=== PATIENT | female | born 1955 | race Caucasian/White ===

== ENCOUNTER → 2016-11-18 | Outpatient (CLI) | payer OTHER ==
[~2016-11-18] MED LIST: ASPI81TA28 PO; B-COTAB18 PO; CHOL2000 PO; CRS20 PO; ESTR1DIS TD; HYZ/50125 PO; LORA-741 PO; LPR25 PO; MOME16.7 INH; NTRSLP4 SL; OMEG10007 PO; PLV75 PO; PRLSR20 PO; VNTHFA/IN INH
--- NOTE | 2016-11-18 15:37 | MAMMOGRAPHY REPORT ---
BILATERAL DIGITAL SCREENING MAMMOGRAM TOMOSYNTHESIS WITH CAD: 11/18/2016 CLINICAL HISTORY: Routine screening. Patient has no complaints. TECHNIQUE: Breast tomosynthesis in addition to standard 2D mammography was performed. Current study was also evaluated with a Computer Aided Detection (CAD) system. COMPARISON: Comparison is made to exams dated: 11/13/2015 mammogram, 11/07/2014 mammogram, 11/01/2013 mammogram, 10/26/2012 mammogram, 10/21/2011 mammogram, and 10/15/2010 mammogram - [facility]. BREAST COMPOSITION: There are scattered areas of fibroglandular density in both breasts. FINDINGS: No suspicious masses, calcifications, or areas of architectural distortion are noted in e ither breast. There has been no significant interval change compared to prior exams. IMPRESSION: ACR BI-RADS CATEGORY 1: NEGATIVE There is no mammographic evidence of malignancy. A 1 year screening mammogram is recommended. The p atient will receive written notification of the results. Approximately 10% of breast cancers are not detected with mammography. A negative mammographic repor t should not delay biopsy if a clinically suggestive mass is present. Isabela Way M.D. ah/:11/18/2016 15:03:07 Tax Collection Coordinator: Baylee HIDALGO(R)(M), [facility] letter sent: Normal 1/2 BI-RADS Code: ACR BI-RADS Category 1: Negative
== END | disposition home or self-care (01) ==
LOC: C.MAMM 12:27
PROVIDERS: ATTEND Obstetrics & Gynecology
DX: Z12.31 Encounter for screening mammogram for malignant neoplasm of breast (principal)

== ENCOUNTER 2017-03-19 16:51 | Inpatient (IN) | payer OTHER ==
[~2017-03-19] VITALS: Ht 167.6 cm; Wt 96.0 kg
[2017-03-19] MEDS ORDERED: NITROGLYCERIN OINT 2% 1GM PACKET EXT STA (17:05)
[2017-03-19] MEDS ORDERED: SODIUM CHLORIDE 0.9% 1000ML 250 ML IV STA (17:05)
--- NOTE | 2017-03-19 17:16 | EMERGENCY ROOM VISIT NOTE ---
History Report prepared by Abhishek: Rizwan Trinh Under the Supervision of: Dr. Jose Guadalupe Madrigal M.D. First contact with patient: 16:58 Stated Complaint: CHEST PAIN History of Present Illness The patient is a 61 year old female who presents to the Emergency Room with complaints of intermittent, burning, chest pain beginning a couple days ago. She currently states that her discomfort is almost resolved, but when it was present, it was a 5/10. The patient states that a couple days ago, she woke up in the night and experienced jaw pain, bilateral arm pain, and a burning in her chest. She reports that she thought it was GERD, so she propped herself up in bed, and it went away. The patient notes that an hour ago, she began experiencing the same symptoms. She states that her pain started in her jaw, radiated to her chest, and then into her arms. The patient reports that she was with friends, playing yahtzee, talking, and drinking a glass of wine. She notes that she was given Nitroglycerin and aspirin en route, and the medications helped alleviate her symptoms. She denies shortness of breath, nausea, and diaphoresis. The patient notes that she has a history of hypercholesteremia, but she no longer takes medication. She states that she has a history of hypertension and a strong family history of heart disease. The patient denies a history of diabetes mellitus. She notes that she occasionally smoke 4 cigarettes a day. Source of History: patient Onset: couple days ago Position: chest Symptom Intensity: 5/10 Quality: burning Timing: intermittent Modifying Factors (Relieving): other (nitroglycerin) Associated Symptoms: No diaphoresis, No SOB, No nausea Note: Associated symptoms: jaw pain and bilateral arm pain Review of Systems See HPI for pertinent positives & negatives. A total of 10 systems reviewed and were otherwise negative. Past Medical & Surgical Medical Problems: (1) HTN (hypertension) (2) Hypercholesteremia Family History FH: heart disease Hypertension Social History Smoking Status: Current Every Day Smoker (4cigs/day) Alcohol Use: occasionally Marital Status: Housing Status: lives with significant other Current/Historical Medications Scheduled Albuterol Hfa (Ventolin Hfa), 1 PUFF INH BID Aspirin (Aspirin Ec), 81 MG PO DAILY B-Complex Vitamins (Vitamin B Complex), 1 TAB PO DAILY Cholecalciferol (Vitamin D3), 1 CAP PO DAILY Estradiol (Estradiol), 1 PATCH TD 2XWK Fish Oil ([place]-3), 1 CAP PO DAILY Hctz/Losartan (Hyzaar 12.5MG/50MG), 1 TAB PO DAILY Mometasone Furoate (Inhalation (Asmanex Hfa), 1 PUFF INH BID Omeprazole (Prilosec), 20 MG PO DAILY Allergies Coded Allergies: Iodinated Diagnostic Agents (Verified Allergy, Severe, ANAPHYLAXIS, 03/19/17 ) [place] Nut (Verified Allergy, Intermediate, "ITCHY MOUTH", 03/19/17) [employer] (Verified Allergy, Intermediate, "ITCHY MOUTH", 03/19/17) Uncoded Allergies: SEVERAL FRUITS (Allergy, Intermediate, "ITCHY MOUTH"., 03/19/17) Physical Exam Vital Signs Date Time Temp Pulse Resp B/P (MAP) Pulse Ox O2 Delivery O2 Flow Rate FiO2 03/19/17 18:34 74 16 137/87 98 Room Air 03/19/17 18:27 78 167/107 03/19/17 17:34 79 18 167/107 96 Room Air 03/19/17 17:02 88 03/19/17 17:00 96 Room Air 03/19/17 17:00 96 Room Air 03/19/17 17:00 37.0 88 16 184/106 96 Room Air Physical Exam GENERAL: Patient is in no acute distress. HEENT: No acute trauma, normocephalic atraumatic, mucous membranes moist, no nasal congestion, no scleral icterus. NECK: No stridor, no adenopathy, no meningismus, trachea is midline. LUNGS: Clear to auscultation bilaterally, no wheeze, no rhonchi, breath sounds equal. HEART: Without murmurs gallops or rubs, regular rate and rhythm. ABDOMEN: Soft, nontender, bowel sounds positive, no hernias, no peritonitis. EXTREMITIES: No cyanosis or edema, full range of motion of all the joints without pain or difficulty, no signs for acute trauma. NEUROLOGIC: Oriented x 3, no acute motor or sensory deficits, no focal weakness. SKIN: No rash, no jaundice, no diaphoresis. Medical Decision & Procedures ER Provider Diagnostic Interpretation: Radiology results as stated below per my review and radiologist interpretation: CHEST ONE VIEW PORTABLE HISTORY: 61 years-old Female CHEST PAIN acute atypical chest pain. COMPARISON: None available TECHNIQUE: Portable upright AP view of the chest FINDINGS: Cardiac silhouette is within normal limits. No pneumothorax or pleural effusion. Well-demarcated opacity of the medial right lung base obscuring the right heart border is noted. Lung reynolds are otherwise clear. Degenerative changes involving bilateral shoulders. IMPRESSION: Well-defined opacity of the medial right lung base with obscuration of the right heart border is noted suggesting prominent epicardial fat pad or medial segment right middle lobe airspace disease. No comparison available at time of dictation. The above report was generated using voice recognition software. It may contain grammatical, syntax or spelling errors. Electronically signed by: Pedro Pablo Izquierdo M.D. 03/19/2017 5:26 PM Dictated Date/Time: 03/19/2017 5:22 PM (CHEST) THORAX WITHOUT CT DOSE: 396.48 mGy.cm CLINICAL HISTORY: 61 years-old Female with chest pain, allergic to dye--anyphalaxis. Acute atypical chest pain. Initial exam. TECHNIQUE: Multiaxial CT images of the chest were performed without contrast. A dose lowering technique was utilized adhering to the principles of ALARA. COMPARISON: Chest radiograph the same day. FINDINGS: No focal thyroid nodule identified. Evaluation for adenopathy is limited without contrast. No enlarged lymph nodes are seen by CT criteria. Heart is normal in size without pericardial effusion. Coronary arterial calcifications are noted. There is mild fusiform dilation of the ascending thoracic aorta beginning distal to the sinotubular junction, 4.3 x 4.2 cm. Mild biapical pleural-parenchymal scarring is present without pneumothorax, pleural effusion or focal airspace consolidation. There is mild subsegmental bibasilar atelectasis. Mild mucosal secretions are seen layering within the mid thoracic trachea. No significant mucous plugging of the lung bases. Imaged upper abdominal structures demonstrate no acute abnormality. There are a few scattered nonspecific calcifications of the bilateral breasts. Multilevel endplate spurring is seen throughout the spine. IMPRESSION: 1. No acute cardiopulmonary process. 2. Mild fusiform dilation of the ascending thoracic aorta begins distal to the sinotubular junction, 4.3 x 4.2 cm. 3. Coronary arterial disease. Electronically signed by: Pedro Pablo Izquierdo M.D. 03/19/2017 6:42 PM Dictated Date/Time: 03/19/2017 6:36 PM Laboratory Results 03/19/17 16:37 03/19/17 16:37 Test 03/19/17 16:37 03/19/17 17:01 Red Blood Count 4.27 M/uL (4.2-5.4) Mean Corpuscular Volume 91.6 fL (80-100) Mean Corpuscular Hemoglobin 31.1 pg (25-34) Mean Corpuscular Hemoglobin Concent 34.0 g/dl (32-36) RDW Standard Deviation 41.8 fL (36.4-46.3) RDW Coefficient of Variation 12.5 % (11.5-14.5) Mean Platelet Volume 10.4 fL (7.4-10.4) Prothrombin Time 9.9 SECONDS (9.0-12.0) Prothromb Time International Ratio 0.9 (0.9-1.1) Activated Partial Thromboplast Time 28.1 SECONDS (21.0-31.0) Partial Thromboplastin Ratio 1.1 Anion Gap 6.0 mmol/L (3-11) Est Creatinine Clear Calc Drug Dose 72.7 ml/min Estimated GFR () 84.5 Estimated GFR (Non- 72.9 BUN/Creatinine Ratio 12.1 (10-20) Calcium Level 8.8 mg/dl (8.5-10.1) Total Bilirubin 0.6 mg/dl (0.2-1) Aspartate Amino Transf (AST/SGOT) 13 U/L (15-37) Alanine Aminotransferase (ALT/SGPT) 26 U/L (12-78) Alkaline Phosphatase 77 U/L (45-117) Total Creatine Kinase 92 U/L (26-192) Creatine Kinase MB 3.5 ng/ml (0.5-3.6) Creatine Kinase MB Ratio 3.8 (0-3.0) Troponin I < 0.015 ng/ml (0-0.045) Total Protein 7.0 gm/dl (6.4-8.2) Albumin 4.0 gm/dl (3.4-5.0) Globulin 3.0 gm/dl (2.5-4.0) Albumin/Globulin Ratio 1.3 (0.9-2) Lipase 465 U/L (73-393) Bedside Troponin I < 0.030 ng/ml (0-0.045) Laboratory results reviewed by me. Medications Administered Medications (Trade) Dose Ordered Sig/Sean Route Start Time Stop Time Status Last Admin Dose Admin Sodium Chloride 250 ml @ 999 mls/hr Q16M STAT IV 03/19/17 17:05 03/19/17 17:20 DC 03/19/17 17:24 999 MLS/HR Nitroglycerin (Nitroglycerin 2% Oint) 1 inch NOW STAT EXT 03/19/17 17:05 03/19/17 17:06 DC 03/19/17 17:05 1 INCH Metoprolol Tartrate (Lopressor Iv) 5 mg NOW STAT IV 03/19/17 18:11 03/19/17 18:13 DC 03/19/17 18:27 5 MG ECG Indication: chest pain Rate (beats per minute): 77 Rhythm: normal sinus Findings: no ectopy, other (Very subtle ST changes in the inferior leads) Comparison ECG Date: 03/19/17 Change: EKG from ambulance: Normal sinus with a rate of 95, mild ST elevation in the I and L leads with ST depression in the in inferior leads The patient has shown improvement since she has been given the nitroglycerin and aspirin. Repeat EKG from same visit: Indication: jaw pain. Normal sinus with a rate of 72. No ectopy. No acute ischemic change. ED Course 1658: The patient was evaluated in room B06. A complete history and physical exam was performed. 1705: Ordered Nitroglycerin 1 inch EXT, Sodium Chloride 250 ml @ 999 mls/hr IV 1746: I discussed the patient's case with Dr. Murphy, [facility] Hospitalist. The patient will be evaluated for further treatment. 1754: Upon reexamination the patient is still experiencing minimal jaw pain. It is significantly less severe as before. She denies the chest burning and bilateral arm pain. I discussed results and treatment plan with the patient. She verbalizes agreement and understanding. The patient will be evaluated for further management. Medical Decision The patient is a 61 year old female who presents to the ED with complaints of chest burning. Differential diagnoses considered include angina or [place], GERD, gastritis, pancreatitis, musculoskeletal pain, aortic dissection, PE. There is no leukocytosis or concerning anemia. No significant electrolyte abnormality, kidney failure or hepatitis. Lipase mildly elevated but not high enough to diagnose pancreatitis. Chest film shows some potential atelectasis of the right base. Chest CT without contrast as she has anaphylaxis with contrast, shows some dilation to the thoracic aorta, no mention of aortic dissection, no pneumonia seen, no pneumothorax. The EKG done by the paramedics when the patient was having discomfort shows some mild ST elevations in the lateral leads and some ST depressions inferiorly. Her EKG upon arrival, when she was feeling better, shows significant improvement. A third EKG done once she had received Nitropaste and IV Lopressor shows that the changes have completely normalized. Cardiac enzyme testing 1 is not elevated or consistent with acute cardiac injury. The patient received IV saline, Nitropaste. She had already received aspirin orally before arrival. She was given IV Lopressor to help control the blood pressure and heart rate. She feels markedly improved. I do think a hospital stay for further cardiac workup is warranted. She does have several cardiac risk factors and I am somewhat concerned by the changes in her EKG when she had discomfort. I spoke to case management, I did update the patient. The on-call hospitalist was consulted. Consults Time Called: 1739 Consulting Physician: Dr. Murphy [facility] Hospitalist Returned Call: [phone] I discussed the patient's case with Dr. Murphy [facility] Hospitalist. The patient will be evaluated for further treatment. Impression Primary Impression: Precordial chest pain Additional Impression: EKG abnormalities Scribe Attestation The scribe's documentation has been prepared under my direction and personally reviewed by me in its entirety. I confirm that the note above accurately reflects all work, treatment, procedures, and medical decision making performed by me. Departure Information Dispostion Being Evaluated By Hospitalist Referrals Nasir Araiza M.D. (PCP) Problem Qualifiers
[2017-03-19 17:17] LABS: HEMATOCRIT 39.1 % (37-47); MEAN CELL VOLUME 91.6 fL (80-100); MEAN CORPUSCULAR HEMOGLOBIN 31.1 pg (25-34); MEAN PLATELET VOLUME 10.4 fL (7.4-10.4); PLATELET COUNT 296 K/uL (130-400); RED BLOOD COUNT 4.27 M/uL (4.2-5.4); WHITE BLOOD COUNT 10.04 K/uL (4.8-10.8)
--- NOTE | 2017-03-19 17:27 | DIAGNOSTIC IMAGING REPORT ---
CHEST ONE VIEW PORTABLE HISTORY: 61 years-old Female CHEST PAIN acute atypical chest pain. COMPARISON: None available TECHNIQUE: Portable upright AP view of the chest FINDINGS: Cardiac silhouette is within normal limits. No pneumothorax or pleural effusion. Well-demarcated opacity of the medial right lung base obscuring the right heart border is noted. Lung reynolds are otherwise clear. Degenerative changes involving bilateral shoulders. IMPRESSION: Well-defined opacity of the medial right lung base with obscuration of the right heart border is noted suggesting prominent epicardial fat pad or medial segment right middle lobe airspace disease. No comparison available at time of dictation. The above report was generated using voice recognition software. It may contain grammatical, syntax or spelling errors. Electronically signed by: Pedro Pablo Izquierdo M.D. 03/19/2017 5:26 PM Dictated Date/Time: 03/19/2017 5:22 PM
[2017-03-19 17:29] LABS: ALT/SGPT 26 U/L (12-78); AST/SGOT 13 U/L (15-37); BLOOD UREA NITROGEN 10 mg/dl (7-18); BUN/CREATININE RATIO 12.1 (10-20); CALCIUM 8.8 mg/dl (8.5-10.1); CARBON DIOXIDE 28 mmol/L (21-32); CHLORIDE 102 mmol/L (98-107); CREATININE 0.86 mg/dl (0.60-1.20); GLUCOSE 144 mg/dl (70-99); INR 0.9 (0.9-1.1); PARTIAL THROMBOPLASTIN RATIO 1.1; POTASSIUM 3.2 mmol/L (3.5-5.1); PROTHROMBIN TIME (PATIENT) 9.9 SECONDS (9.0-12.0); SODIUM 136 mmol/L (136-145)
[2017-03-19 17:35] LABS: ALB/GLOB RATIO 1.3 (0.9-2); ALKALINE PHOSPHATASE 77 U/L (45-117); CKMB/CK RATIO 3.8 (0-3.0)
[2017-03-19] MEDS ORDERED: B-COTAB18 PO (17:42)
[2017-03-19] MEDS ORDERED: ASPI81TA28 PO (17:42)
[2017-03-19] MEDS ORDERED: CHOL2000 PO (17:42)
[2017-03-19] MEDS ORDERED: VNTHFA/IN INH (17:42)
[2017-03-19] MEDS ORDERED: PRLSR20 PO (17:42)
[2017-03-19] MEDS ORDERED: OMEG10007 PO (17:42)
[2017-03-19] MEDS ORDERED: ESTR1DIS TD (17:42)
[2017-03-19] MEDS ORDERED: MOME16.7 INH (17:42)
[2017-03-19] MEDS ORDERED: HYZ/50125 PO (17:42)
[2017-03-19] MEDS ORDERED: METOPROLOL TARTRATE 1 MG/ML VIAL IV STA (18:11)
[2017-03-19] MEDS ORDERED: ACETAMINOPHEN 500 MG TAB PO STA (18:37)
--- NOTE | 2017-03-19 18:43 | DIAGNOSTIC IMAGING REPORT ---
(CHEST) THORAX WITHOUT CT DOSE: 396.48 mGy.cm CLINICAL HISTORY: 61 years-old Female with chest pain, allergic to dye--anyphalaxis. Acute atypical chest pain. Initial exam. TECHNIQUE: Multiaxial CT images of the chest were performed without contrast. A dose lowering technique was utilized adhering to the principles of ALARA. COMPARISON: Chest radiograph the same day. FINDINGS: No focal thyroid nodule identified. Evaluation for adenopathy is limited without contrast. No enlarged lymph nodes are seen by CT criteria. Heart is normal in size without pericardial effusion. Coronary arterial calcifications are noted. There is mild fusiform dilation of the ascending thoracic aorta beginning distal to the sinotubular junction, 4.3 x 4.2 cm. Mild biapical pleural-parenchymal scarring is present without pneumothorax, pleural effusion or focal airspace consolidation. There is mild subsegmental bibasilar atelectasis. Mild mucosal secretions are seen layering within the mid thoracic trachea. No significant mucous plugging of the lung bases. Imaged upper abdominal structures demonstrate no acute abnormality. There are a few scattered nonspecific calcifications of the bilateral breasts. Multilevel endplate spurring is seen throughout the spine. IMPRESSION: 1. No acute cardiopulmonary process. 2. Mild fusiform dilation of the ascending thoracic aorta begins distal to the sinotubular junction, 4.3 x 4.2 cm. 3. Coronary arterial disease. Electronically signed by: Pedro Pablo Izquierdo M.D. 03/19/2017 6:42 PM Dictated Date/Time: 03/19/2017 6:36 PM
[2017-03-19] MEDS ORDERED: ZOLPIDEM TARTRATE 5 MG TAB PO PRN (19:00)
[2017-03-19] MEDS ORDERED: NITROGLYCERIN 0.4 MG SL PER TAB CHARGE SL PRN (19:00)
[2017-03-19] MEDS: NITROGLYCERIN 2% OINTMENT 30GM TUBE EXT SCH (19:00)
[2017-03-19] MEDS ORDERED: ACETAMINOPHEN 325 MG TAB PO PRN (19:00)
[2017-03-19] MEDS ORDERED: ONDANSETRON INJ 2 MG/ML 2 ML VIAL IV PRN (19:15)
--- NOTE | 2017-03-19 19:29 | History and Physical ---
History & Physical Date & Time of Service: Mar 19, 2017 at 19:26 Chief Complaint: Chest Pain Primary Care Physician: Nasir Araiza M.D. History of Present Illness Source: patient, spouse, hospital records, EMS The patient is a 61-year-old female who presents to the emergency department with her second episode in the past 2 days of intermittent chest burning sensation with radiation of pain to her jaw and arm. Today she reports she was playing cards and drinking a glass of wine when the symptoms occurred. Because this was her second episode, she decided to come to the emergency department for assessment. She has a very strong family history of heart disease on both sides, and risk factors include hypercholesterolemia, hypertension, obesity and tobacco use. She initially had abnormal EKG with ST elevations in leads 1 and aVL, as performed by the medics in the field, which normalized by the time she arrived in the emergency department. Past Medical/Surgical History Medical Problems: (1) HTN (hypertension) Status: Chronic (2) Hypercholesteremia Status: Resolved Family History FH: heart disease Hypertension Social History Smoking Status: Current Every Day Smoker (4cigs/day) Smokeless Tobacco Use: No Alcohol Use: socially Drug Use: none Marital Status: Housing status: lives with family Occupational Status: employed Immunizations History of Influenza Vaccine: Unknown History of Tetanus Vaccine?: Unknown History of Pneumococcal: Unknown History of Hepatitis B Vaccine: Unknown Multi-Drug Resistant Organisms History of MDRO: No Allergies Coded Allergies: Iodinated Diagnostic Agents (Verified Allergy, Severe, ANAPHYLAXIS, 03/19/17 ) [place] (Verified Allergy, Intermediate, "ITCHY MOUTH", 03/19/17) [place] (Verified Allergy, Intermediate, "ITCHY MOUTH", 03/19/17) Uncoded Allergies: SEVERAL FRUITS (Allergy, Intermediate, "ITCHY MOUTH"., 03/19/17) Home Medications Scheduled Albuterol Hfa (Ventolin Hfa), 1 PUFF INH BID Aspirin (Aspirin Ec), 81 MG PO DAILY B-Complex Vitamins (Vitamin B Complex), 1 TAB PO DAILY Cholecalciferol (Vitamin D3), 1 CAP PO DAILY Estradiol (Estradiol), 1 PATCH TD 2XWK Fish Oil (Rock-3), 1 CAP PO DAILY Hctz/Losartan (Hyzaar 12.5MG/50MG), 1 TAB PO DAILY Mometasone Furoate (Inhalation (Asmanex Hfa), 1 PUFF INH BID Omeprazole (Prilosec), 20 MG PO DAILY Review of Systems The patient denies palpitations, shortness of breath, cough, lower extremity swelling, vision change, hearing change, sore throat, fevers, chills, sweats, weight change, fatigue, nausea, vomiting, diarrhea or constipation, abdominal pain, pelvic pain, blood in urine or stool, dysuria, urinary frequency or urgency, lightheadedness, dizziness, headache, memory loss, rash, abnormal bruising or bleeding, imbalance, focal or generalized weakness, numbness or tingling in legs, generalized arthralgias or myalgias, back pain, night sweats, or allergy symptoms. The review of systems is otherwise negative other than for that already noted above, and at least 10 systems have been reviewed. Physical Exam Vital Signs Date Time Temp Pulse Resp B/P (MAP) Pulse Ox O2 Delivery O2 Flow Rate FiO2 03/19/17 18:34 74 16 137/87 98 Room Air 03/19/17 18:27 78 167/107 03/19/17 17:34 79 18 167/107 96 Room Air 03/19/17 17:02 88 03/19/17 17:00 96 Room Air 03/19/17 17:00 96 Room Air 03/19/17 17:00 37.0 88 16 184/106 96 Room Air The patient is awake, well-developed and adequately nourished, alert and oriented 3, normocephalic and atraumatic, lying in bed and in no acute distress. HEENT--PERRL, EOMI, mucous membranes and oropharynx normal. Neck--supple, no JVD or bruits, thyroid normal, trachea midline, no adenopathy. Heart--normal S1 and S2, no extra beats, no murmurs, rubs or gallops. Lungs--clear bilaterally with good air movement, no respiratory distress, no accessory muscle use. Abdomen--normal bowel sounds and soft, nontender and nondistended, no hernias or masses, no organomegaly and obese. Extremities--no cyanosis, clubbing or edema. There are good distal pulses b/l. Dermatologic--normal skin turgor, normal color, warm and dry, no abnormal lymph nodes, no rash. Neurologic--cranial nerves II through XII grossly intact, motor and sensory examination normal. Rheumatologic--normal range of motion, nontender, muscles and joints. Psychiatric--normal affect. Diagnostics Laboratory Results Results Past 24 Hours Test 03/19/17 16:37 03/19/17 17:01 03/19/17 19:11 Range/Units White Blood Count 10.04 4.8-10.8 K/uL Red Blood Count 4.27 4.2-5.4 M/uL Hemoglobin 13.3 12.0-16.0 g/dL Hematocrit 39.1 37-47 % Mean Corpuscular Volume 91.6 80-100 fL Mean Corpuscular Hemoglobin 31.1 25-34 pg Mean Corpuscular Hemoglobin Concent 34.0 32-36 g/dl RDW Standard Deviation 41.8 36.4-46.3 fL RDW Coefficient of Variation 12.5 11.5-14.5 % Platelet Count 296 130-400 K/uL Mean Platelet Volume 10.4 7.4-10.4 fL Prothrombin Time 9.9 9.0-12.0 SECONDS Prothromb Time International Ratio 0.9 0.9-1.1 Activated Partial Thromboplast Time 28.1 21.0-31.0 SECONDS Partial Thromboplastin Ratio 1.1 Sodium Level 136 136-145 mmol/L Potassium Level 3.2 3.5-5.1 mmol/L Chloride Level 102 98-107 mmol/L Carbon Dioxide Level 28 21-32 mmol/L Anion Gap 6.0 3-11 mmol/L Blood Urea Nitrogen 10 7-18 mg/dl Creatinine 0.86 0.60-1.20 mg/dl Est Creatinine Clear Calc Drug Dose 72.7 ml/min Estimated GFR () 84.5 Estimated GFR (Non- 72.9 BUN/Creatinine Ratio 12.1 10-20 Random Glucose 144 70-99 mg/dl Calcium Level 8.8 8.5-10.1 mg/dl Total Bilirubin 0.6 0.2-1 mg/dl Aspartate Amino Transf (AST/SGOT) 13 15-37 U/L Alanine Aminotransferase (ALT/SGPT) 26 12-78 U/L Alkaline Phosphatase 77 45-117 U/L Total Creatine Kinase 92 26-192 U/L Creatine Kinase MB 3.5 0.5-3.6 ng/ml Creatine Kinase MB Ratio 3.8 0-3.0 Troponin I < 0.015 0-0.045 ng/ml Total Protein 7.0 6.4-8.2 gm/dl Albumin 4.0 3.4-5.0 gm/dl Globulin 3.0 2.5-4.0 gm/dl Albumin/Globulin Ratio 1.3 0.9-2 Lipase 465 73-393 U/L Bedside Troponin I < 0.030 0-0.045 ng/ml Diagnostic Radiology Patient Name: ELIDA RAND Unit Number: [id number] Dictated: 03/19/171721 Transcribed: 03/19/171721 J[facility] Printed Date/Time: [~ rep prt dt]/[~ rep prt tm] [~ rep ct labl] - [~ rep ct ivnm] [facility] [place] [address] Dictated: 03/19/171721 Transcribed: 03/19/171721 J[facility] Printed Date/Time: [~ rep prt dt]/[~ rep prt tm] [~ rep ct labl] - [~ rep ct ivnm] [~ rep ct add3]] CHEST ONE VIEW PORTABLE HISTORY: 61 years-old Female CHEST PAIN acute atypical chest pain. COMPARISON: None available TECHNIQUE: Portable upright AP view of the chest FINDINGS: Cardiac silhouette is within normal limits. No pneumothorax or pleural effusion. Well-demarcated opacity of the medial right lung base obscuring the right heart border is noted. Lung reynolds are otherwise clear. Degenerative changes involving bilateral shoulders. IMPRESSION: Well-defined opacity of the medial right lung base with obscuration of the right heart border is noted suggesting prominent epicardial fat pad or medial segment right middle lobe airspace disease. No comparison available at time of dictation. The above report was generated using voice recognition software. It may contain grammatical, syntax or spelling errors. Electronically signed by: Pedro Pablo Izquierdo M.D. 03/19/2017 5:26 PM Dictated Date/Time: 03/19/2017 5:22 PM The status of this report is Signed. Draft = Not yet reviewed or approved by Radiologist. Signed = Reviewed and approved by Radiologist. <AttendingPhy></AttendingPhy> <FamilyPhy>Solic, Nasir,M.D.</FamilyPhy> < PrimaryPhy>Nasir Araiza M.D.</PrimaryPhy> <UnitNumber>[id number]</UnitNumber> < VisitNumber>[id number]</VisitNumber> <PatientName>DALIA RANDIE</PatientName > <DateOfBirth>1955</DateOfBirth> <Location>[facility]</Location> <ServiceDate> 03/19/17</ServiceDate> <MNE>ESINDI</MNE> <OrderingPhy>Jose Guadalupe Madrigal M.D.</ OrderingPhy> <OrderingPhyMNE>f rep ord dr navarrete</OrderingPhyMNE> <DictatingPhyMNE> f rep dict dr navarrete</DictatingPhyMNE> <CCListMNE>f rep ct mne</CCListMNE> < AdmittingPhyMNE>f pt admit dr navarrete</AdmittingPhyMNE> <AttendingPhyMNE>f pt attend dr navarrete</AttendingPhyMNE> <ConsultingPhyMNE>f pt consult dr navarrete</ConsultingPhyMNE> <FamilyPhyMNE>f pt fam dr navarrete</FamilyPhyMNE> <OtherPhyMNE>f pt other dr navarrete</OtherPhyMNE> < PrimaryPhyMNE>f pt prim care dr navarrete</PrimaryPhyMNE> <ReferringPhyMNE>f pt referring dr navarrete</ReferringPhyMNE> Patient Name: ELIDA RAND Unit Number: [id number] Dictated: 03/19/171835 Transcribed: 03/19/171835 [facility] Printed Date/Time: [~ rep prt dt]/[~ rep prt tm] [~ rep ct labl] - [~ rep ct ivnm] [facility] [place] [address] Dictated: 03/19/171835 Transcribed: 03/19/171835 JR Printed Date/Time: [~ rep prt dt]/[~ rep prt tm] [~ rep ct labl] - [~ rep ct ivnm] (CHEST) THORAX WITHOUT CT DOSE: 396.48 mGy.cm CLINICAL HISTORY: 61 years-old Female with chest pain, allergic to dye--anyphalaxis. Acute atypical chest pain. Initial exam. TECHNIQUE: Multiaxial CT images of the chest were performed without contrast. A dose lowering technique was utilized adhering to the principles of ALARA. COMPARISON: Chest radiograph the same day. FINDINGS: No focal thyroid nodule identified. Evaluation for adenopathy is limited without contrast. No enlarged lymph nodes are seen by CT criteria. Heart is normal in size without pericardial effusion. Coronary arterial calcifications are noted. There is mild fusiform dilation of the ascending thoracic aorta beginning distal to the sinotubular junction, 4.3 x 4.2 cm. Mild biapical pleural-parenchymal scarring is present without pneumothorax, pleural effusion or focal airspace consolidation. There is mild subsegmental bibasilar atelectasis. Mild mucosal secretions are seen layering within the mid thoracic trachea. No significant mucous plugging of the lung bases. Imaged upper abdominal structures demonstrate no acute abnormality. There are a few scattered nonspecific calcifications of the bilateral breasts. Multilevel endplate spurring is seen throughout the spine. IMPRESSION: 1. No acute cardiopulmonary process. 2. Mild fusiform dilation of the ascending thoracic aorta begins distal to the sinotubular junction, 4.3 x 4.2 cm. 3. Coronary arterial disease. Electronically signed by: Pedro Pablo Izquierdo M.D. 03/19/2017 6:42 PM Dictated Date/Time: 03/19/2017 6:36 PM The status of this report is Signed. Draft = Not yet reviewed or approved by Radiologist. Signed = Reviewed and approved by Radiologist. <AttendingPhy></AttendingPhy> <FamilyPhy>Nasir Araiza M.D.</FamilyPhy> < PrimaryPhy>Nasir Araiza M.D.</PrimaryPhy> <UnitNumber>[id number]</UnitNumber> < VisitNumber>[id number]</VisitNumber> <PatientName>ELIDA RAND</PatientName > <DateOfBirth>1955</DateOfBirth> <Location[facility]</Location> <ServiceDate> 03/19/17</ServiceDate> <MNE>ESINDI</MNE> <OrderingPhy>Feese, Jose Guadalupe J. M.D.</ OrderingPhy> <OrderingPhyMNE>f rep ord dr navarrete</OrderingPhyMNE> <DictatingPhyMNE> f rep dict dr navarrete</DictatingPhyMNE> <CCListMNE>f rep ct arbene</CCListMNE> < AdmittingPhyMNE>f pt admit dr navarrete</AdmittingPhyMNE> <AttendingPhyMNE>f pt attend dr navarrete</AttendingPhyMNE> <ConsultingPhyMNE>f pt consult dr navarrete</ConsultingPhyMNE> <FamilyPhyMNE>f pt fam dr navarrete</FamilyPhyMNE> <OtherPhyMNE>f pt other dr navarrete</OtherPhyMNE> < PrimaryPhyMNE>f pt prim care dr navarrete</PrimaryPhyMNE> <ReferringPhyMNE>f pt referring dr navarrete</ReferringPhyMNE> EKG EKG #1, in the field, shows normal sinus rhythm with ST elevations in leads 1 and aVL and V2. EKG #2, performed in the ED, shows resolution of the elevations. EKG #3, is unchanged from #2. Impression Assessment and Plan Unstable angina/abnormal EKG in the field, resolved in the ED-- The patient will be admitted to telemetry for serial cardiac enzymes, cardiac rhythm monitoring and a 2-D echocardiogram with Dopplers. Stop Hyzaar. Place on metoprolol tartrate 25 mg by mouth twice a day. Aspirin 81 mg by mouth every morning. Nitropaste 1 inch anterior chest wall every 6 hours. Start heparin drip standard dose with bolus per weight-based protocol. Consult cardiology. Hypercholesterolemia--place on high-dose Lipitor 80 mg starting tonight. Asthma--continue Asmanex HFA and albuterol HFA. GERD--change omeprazole to pantoprazole which she takes at bedtime. Postmenopausal symptoms continue estradiol patch. Level of Care Telemetry Advanced Directives Existing Advance Directive: No Existing Living Will: No Existing Power of Group Marketing Vp: No Resuscitation Status FULL RESUSCITATION VTE Prophylaxis VTE Risk Assessment Done? Y/N: Yes Risk Level: Moderate Given or contraindicated: Unfractionated heparin SQ (IV heparin standard dose with bolus per weight-based protocol. ) Social Service Consult None Apply
[2017-03-19 20:06] VITALS: BP 122/73; PULSE 74; TEMP 36.8; O2SAT 96
[2017-03-19] MEDS ORDERED: HEPARIN 25,000 UNIT/500ML D5W 500 ML IV PRN (20:15)
[2017-03-19] MEDS ORDERED: HEPARIN IV BOLUS 5,000 UNIT in SYRINGE 0 ML IV ONE (20:15)
[2017-03-19] MEDS: ALBUTEROL HFA 8 GM INHALER INH SCH (20:29)
[2017-03-19] MEDS: METOPROLOL TARTRATE 25 MG TAB PO SCH (20:29)
[2017-03-19] MEDS: ATORVASTATIN 40 MG TAB PO SCH ×2 (20:29→20:41)
[2017-03-19] MEDS: PANTOprazole SOD 40 MG TAB PO SCH (20:29)
[2017-03-19 20:52] VITALS: BP 122/73; PULSE 74; TEMP 36.8; O2SAT 96; Ht 167.6 cm; Wt 96.0 kg
[2017-03-19] MEDS ORDERED: ALBUTEROL HFA INHALER 8.5 GM INH SCH (21:00)
[2017-03-19 21:49] LABS: CKMB/CK RATIO 6.3 (0-3.0)
[2017-03-20] VITALS (17 sets, daily range): BP systolic 103–164; BP diastolic 64–97; PULSE 66–83; TEMP 36.4–36.9; O2SAT 92–96
[2017-03-20] MEDS: NITROGLYCERIN 2% OINTMENT 30GM TUBE EXT SCH ×3 (01:19→14:30)
[2017-03-20 03:06] LABS: BASO % 0.2 %; BASO ABS # 0.02 K/uL (0-0.2); COMPLETE YES; EOS % 2.6 %; HEMATOCRIT 35.8 % (37-47); IG% 0.2 %; LYMPH % 33.5 %; LYMPH ABS # 2.83 K/uL (1.2-3.4); MEAN CELL VOLUME 90.6 fL (80-100); MEAN CORPUSCULAR HEMOGLOBIN 30.6 pg (25-34); MEAN CORPUSCULAR HGB CONC 33.8 g/dl (32-36); MEAN PLATELET VOLUME 10.1 fL (7.4-10.4); MONO % 4.7 %; NEUT % 58.8 %; PLATELET COUNT 239 K/uL (130-400); RED BLOOD COUNT 3.95 M/uL (4.2-5.4); WHITE BLOOD COUNT 8.45 K/uL (4.8-10.8)
[2017-03-20 03:41] LABS: CKMB/CK RATIO 9.8 (0-3.0)
[2017-03-20] MEDS: ASPIRIN 81 MG ECTAB PO SCH (08:46)
[2017-03-20] MEDS: METOPROLOL TARTRATE 25 MG TAB PO SCH ×2 (08:47→21:42)
[2017-03-20] MEDS: VITAMIN B COMPLEX TAB PO SCH (08:52)
[2017-03-20] MEDS: ALBUTEROL HFA 8 GM INHALER INH SCH ×2 (08:53→21:43)
[2017-03-20] MEDS: CHOLECALCIFEROL 1000 INTER.UNIT TAB PO SCH (08:53)
[2017-03-20] MEDS ORDERED: LOSARTAN/HCTZ 50-12.5 EA TAB PO SCH (09:00)
[2017-03-20] MEDS ORDERED: METHYLPREDNISOLONE 125 MG VIAL IV STA (10:17)
[2017-03-20] MEDS ORDERED: RANITIDINE HCL 50 MG/100 ML D5W IV STA (10:17)
[2017-03-20] MEDS ORDERED: DiphenhydrAMINE INJ 50 MG in SYRINGE 0 ML IV STA (10:17)
[2017-03-20] MEDS ORDERED: DiphenhydrAMINE HCL 50 MG/ML VIAL IV STA (10:23)
[2017-03-20] MEDS ORDERED: METHYLPREDNISOLONE 125 MG in SYRINGE 0 ML IV ONE (10:30)
[2017-03-20] MEDS ORDERED: RANITIDINE IV 50 MG in DEXTROSE 5% 100ML 100 ML IV ONE (10:30)
[2017-03-20 10:36] LABS: CKMB/CK RATIO 10.5 (0-3.0)
--- NOTE | 2017-03-20 10:56 | ECHOCARDIOGRAM REPORT ---
*NOTICE TO RECEIVING DEMOCRAT AGENCY This information is strictly Confidential and protected under [place] law. [place] law prohibits you from making any further disclosure of this information unless further disclosure is expressly permitted by the written consent of the person to whom it pertains or is authorized by law. A general authorization for the release of medical or other information is not sufficient for this purpose. Hospital accepts no responsibility if the information is made available to any other person, INCLUDING THE PATIENT. Interpretation Summary * Name: ELIDA RAND Study Date: 03/20/2017 07:01 AM BP: 103/67 mmHg * Patient Location: .MED\S\N282\S\2 HR: 69 * : 1955 (M/d/yyyy) Gender: Female Height: 66 in * Age: 61 yrs Ethnicity: [place] Weight: 173 lb * Ordering Physician: Jaime Murphy * Performed By: Anna Mccormack * * Reason For Study: UNSTABLE ANGINA * BSA: 1.9 m2 * -- Conclusions -- * 1. Normal LV size, borderline LV wall thickness. * 2. Normal LV systolic function. LVEF 60-65%. Mild inferolateral hypokinesis. * 3. Normal RV size and function. * 4. No significant valvular pathology. * 5. Mildly dilated ascending aorta (4.0 cm) * 6. No prior studies for comparison. Procedure Details * A complete two-dimensional transthoracic echocardiogram was performed (2D, M-mode, Doppler and color flow Doppler). Left Ventricle * The left ventricle is grossly normal size. * There is borderline concentric left ventricular hypertrophy. * Ejection Fraction = 60-65%. * There is mild inferior wall hypokinesis. Right Ventricle * The right ventricle is grossly normal size. * The right ventricular systolic function is normal as assessed by tricuspid annular plane systolic excursion (TAPSE) (normal >1.5 cm). Atria * The left atrial size is normal. * Right atrial size is normal. * No ASD detected; PFO is not assessed. Mitral Valve * The mitral valve is grossly normal. * There is no mitral valve stenosis. * There is trace mitral regurgitation. Tricuspid Valve * Significant tricuspid regurgitation is absent. Aortic Valve * The aortic valve opens well. * The aortic valve is trileaflet. * No hemodynamically significant valvular aortic stenosis. * Trace aortic regurgitation. Pulmonic Valve * The pulmonary valve is inadequately visualized, but the Doppler data is adequate for interpretation. * There is no pulmonic valvular stenosis. * Trace pulmonic valvular regurgitation. Great Vessels * Mildly dilated ascending aorta. * Ascending aorta 4.0 cm Pericardium/Pleural * There is no pericardial effusion. Great Vessels * Normal inferior vena cava size and collapsability with sniff indicates a normal right atrial pressure of 3 mmHg MMode 2D Measurements and Calculations IVSd 1.3 cm IVSs 1.9 cm LVIDd 4.7 cm LVIDs 3.2 cm LVPWd 0.98 cm LVPWs 2.0 cm IVS/LVPW 1.3 FS 32.9 % EDV(Teich) 102.9 ml ESV(Teich) 39.7 ml EF(Teich) 61.4 % EDV(cubed) 104.5 ml ESV(cubed) 31.6 ml EF(cubed) 69.8 % % IVS thick 51.2 % % LVPW thick 99.6 % LV mass(C)d 194.7 grams LV mass(C)dI 103.5 grams/m\S\2 LV mass(C)s 265.1 grams LV mass(C)sI 141.0 grams/m\S\2 CO(Teich) 3.9 l/min CI(Teich) 2.0 l/min/m\S\2 SV(Teich) 63.1 ml SI(Teich) 33.6 ml/m\S\2 CO(cubed) 4.4 l/min CI(cubed) 2.4 l/min/m\S\2 SV(cubed) 72.9 ml SI(cubed) 38.8 ml/m\S\2 ACS 1.4 cm LA dimension 3.4 cm asc Aorta Diam 4.1 cm LVOT diam 2.2 cm LVOT area 4.0 cm\S\2 LVAd ap4 30.8 cm\S\2 LVLd ap4 7.8 cm EDV(MOD-sp4) 100.0 ml LVAs ap4 14.9 cm\S\2 LVLs ap4 6.2 cm ESV(MOD-sp4) 32.4 ml EF(MOD-sp4) 67.6 % LVAd ap2 24.2 cm\S\2 LVLd ap2 7.3 cm EDV(MOD-sp2) 68.0 ml LVAs ap2 14.0 cm\S\2 LVLs ap2 6.7 cm ESV(MOD-sp2) 25.2 ml EF(MOD-sp2) 62.9 % CO(MOD-sp4) 4.1 l/min CI(MOD-sp4) 2.2 l/min/m\S\2 SV(MOD-sp4) 67.6 ml SI(MOD-sp4) 35.9 ml/m\S\2 CO(MOD-sp2) 2.6 l/min CI(MOD-sp2) 1.4 l/min/m\S\2 SV(MOD-sp2) 42.8 ml SI(MOD-sp2) 22.8 ml/m\S\2 Doppler Measurements and Calculations MV E max severino 76.2 cm/sec MV A max severino 104.8 cm/sec MV E/A 0.73 MV dec time 0.24 sec Ao V2 max 130.3 cm/sec Ao max PG 6.8 mmHg Ao max PG (full) 3.6 mmHg DEANDRE(V,A) 2.7 cm\S\2 DEANDRE(V,D) 2.7 cm\S\2 LV V1 max PG 3.2 mmHg LV V1 max 89.7 cm/sec MR max severino 279.6 cm/sec MR max PG 31.3 mmHg PA V2 max 59.7 cm/sec PA max PG 1.4 mmHg PI end-d severino 100.4 cm/sec
[2017-03-20] MEDS ORDERED: NiCARDipine HCL INJ 2.5 MG/ML 10 ML AMP ONE (11:12)
[2017-03-20] MEDS ORDERED: NITROGLYCERIN/D5W 100MCG/ML 20ML SYR ONE (11:12)
[2017-03-20] MEDS: MIDAZOLAM HCL 1 MG/ML 2ML VIAL ONE (11:12)
[2017-03-20] MEDS ORDERED: HEPARIN SOD (PORCINE) 1000 UNIT/ML 10 ML VIAL ONE (11:12)
[2017-03-20] MEDS: FENTANYL CITRATE INJ 50 MCG/1 ML 2 ML VIAL ONE (11:12)
[2017-03-20 11:32] LABS: BUN/CREATININE RATIO 14.1 (10-20); CALCIUM 8.8 mg/dl (8.5-10.1); CREATININE 0.71 mg/dl (0.60-1.20); POTASSIUM 3.5 mmol/L (3.5-5.1)
[2017-03-20] MEDS ORDERED: ADENOSINE IV SOLN 3 MG/ML 20 ML VIAL ONE ×2 (12:06→12:23)
--- NOTE | 2017-03-20 12:46 | Family Medicine Progress Note ---
Progress Note Date of Service Mar 20, 2017. Subjective Pt evaluation today including: conversation w/ patient, physical exam, chart review, lab review, conversation w/ sourcing consultant Pain: none PO Intake: NPO Patient admitted yesterday for chest pain, ST elevations on EKG from outside hospital and troponin elevation She is planned to go for a catheterization this morning When I saw her this morning she still had some residual left arm numbness but denies any chest pain, palpitations or shortness of breath Constitutional: No fever, No chills, No sweats Respiratory: No cough, No sputum, No wheezing, No shortness of breath Cardiovascular: No chest pain, No edema, No palpitations Abdomen: No pain, No nausea, No vomiting, No diarrhea Musculoskeletal: No joint pain, No muscle pain Neurologic: + numbness/tingling Psychiatric: + anxiety Skin: No rash, No itch, No new/changing skin lesions Medications Current Inpatient Medications Medications (Trade) Dose Ordered Sig/Sean Route Start Time Stop Time Status Last Admin Dose Admin Acetaminophen (Tylenol Tab) 650 mg Q4H PRN PO 03/19/17 19:00 04/18/17 18:59 Zolpidem Tartrate (Ambien Tab) 5 mg HSZ PRN PO 03/19/17 19:00 04/18/17 18:59 Nitroglycerin (Nitrostat Tab) 0.4 mg UD PRN SL 03/19/17 19:00 04/18/17 18:59 Nitroglycerin (Nitroglycerin 2% Oint) 1 inch Q6H EXT 03/19/17 19:00 04/18/17 18:59 03/20/17 08:50 1 INCH Aspirin (Ecotrin Tab) 81 mg QAM PO 03/20/17 09:00 04/19/17 08:59 03/20/17 08:46 81 MG Miscellaneous Information (Order Awaiting Action) 1 ea QS N/A 03/20/17 00:00 04/19/17 00:00 Vitamin B Complex (Vitamin B Complex) 1 tab QAM PO 03/20/17 09:00 04/19/17 08:59 Cholecalciferol (Vitamin D Tab) 2,000 inter.unit QAM PO 03/20/17 09:00 04/19/17 08:59 Pantoprazole Sodium (Protonix Tab) 40 mg HS PO 03/19/17 21:00 10/2/17 20:59 03/19/17 20:29 40 MG Ondansetron HCl (Zofran Inj) 4 mg Q6H PRN IV 03/19/17 19:15 04/18/17 19:14 Metoprolol Tartrate (Lopressor Tab) 25 mg BID PO 03/19/17 21:00 04/18/17 20:59 03/20/17 08:47 25 MG Albuterol (Ventolin Hfa Inhaler) 2 puffs BID INH 03/19/17 21:00 04/18/17 20:59 03/19/17 20:29 2 PUFFS Atorvastatin Calcium (Lipitor Tab) 80 mg HS PO 03/19/17 21:00 04/18/17 20:59 Heparin Sodium/ Dextrose 500 ml @ 24 mls/hr [id number] PRN IV 03/19/17 20:15 04/18/17 20:14 03/19/17 20:27 24 MLS/HR Mometasone Furoate (Asmanex 220MCG Inh) 1 puff BID INH 03/20/17 21:00 04/19/17 20:59 Objective Vital Signs Date Time Temp Pulse Resp B/P (MAP) Pulse Ox O2 Delivery O2 Flow Rate FiO2 03/20/17 08:00 93 Room Air 03/20/17 07:36 36.4 83 16 124/70 (88) 93 Room Air 03/20/17 04:46 95 Room Air 03/20/17 04:00 36.6 69 20 103/67 (79) 95 Room Air 03/20/17 00:05 36.9 72 18 107/64 (78) 92 Room Air 03/20/17 00:00 96 Room Air 03/19/17 20:52 36.8 74 18 122/73 96 Room Air 03/19/17 20:06 36.8 74 18 122/73 (89) 96 Room Air 03/19/17 19:33 77 16 124/81 95 Room Air 03/19/17 18:34 74 16 137/87 98 Room Air 03/19/17 18:27 78 167/107 03/19/17 17:34 79 18 167/107 96 Room Air 03/19/17 17:02 88 03/19/17 17:00 96 Room Air 03/19/17 17:00 96 Room Air 03/19/17 17:00 37.0 88 16 184/106 96 Room Air Physical Exam General Appearance: WD/WN, no apparent distress Neck: supple, no JVD, no carotid bruits Respiratory/Chest: no respiratory distress, no accessory muscle use, + crackles (crackles at the bases bilaterally) Cardiovascular: regular rate, rhythm, no edema, no JVD, no murmur Abdomen: normal bowel sounds, non tender, soft Extremities: normal range of motion, non-tender, no calf tenderness, normal capillary refill Laboratory Results Results Past 24 Hours Test 03/19/17 16:37 03/19/17 17:01 03/19/17 19:11 03/19/17 21:08 Range/Units White Blood Count 10.04 4.8-10.8 K/uL Red Blood Count 4.27 4.2-5.4 M/uL Hemoglobin 13.3 12.0-16.0 g/dL Hematocrit 39.1 37-47 % Mean Corpuscular Volume 91.6 80-100 fL Mean Corpuscular Hemoglobin 31.1 25-34 pg Mean Corpuscular Hemoglobin Concent 34.0 32-36 g/dl RDW Standard Deviation 41.8 36.4-46.3 fL RDW Coefficient of Variation 12.5 11.5-14.5 % Platelet Count 296 130-400 K/uL Mean Platelet Volume 10.4 7.4-10.4 fL Prothrombin Time 9.9 9.0-12.0 SECONDS Prothromb Time International Ratio 0.9 0.9-1.1 Activated Partial Thromboplast Time 28.1 21.0-31.0 SECONDS Partial Thromboplastin Ratio 1.1 Sodium Level 136 136-145 mmol/L Potassium Level 3.2 3.5-5.1 mmol/L Chloride Level 102 98-107 mmol/L Carbon Dioxide Level 28 21-32 mmol/L Anion Gap 6.0 3-11 mmol/L Blood Urea Nitrogen 10 7-18 mg/dl Creatinine 0.86 0.60-1.20 mg/dl Est Creatinine Clear Calc Drug Dose 72.7 ml/min Estimated GFR () 84.5 Estimated GFR (Non- 72.9 BUN/Creatinine Ratio 12.1 10-20 Random Glucose 144 70-99 mg/dl Calcium Level 8.8 8.5-10.1 mg/dl Total Bilirubin 0.6 0.2-1 mg/dl Aspartate Amino Transf (AST/SGOT) 13 15-37 U/L Alanine Aminotransferase (ALT/SGPT) 26 12-78 U/L Alkaline Phosphatase 77 45-117 U/L Total Creatine Kinase 92 88 26-192 U/L Creatine Kinase MB 3.5 5.5 0.5-3.6 ng/ml Creatine Kinase MB Ratio 3.8 6.3 0-3.0 Troponin I < 0.015 0.718 0-0.045 ng/ml Total Protein 7.0 6.4-8.2 gm/dl Albumin 4.0 3.4-5.0 gm/dl Globulin 3.0 2.5-4.0 gm/dl Albumin/Globulin Ratio 1.3 0.9-2 Lipase 465 73-393 U/L Bedside Troponin I < 0.030 0-0.045 ng/ml Hepatitis C Antibody Screen NEG NEG Test 03/20/17 02:55 03/20/17 05:18 03/20/17 09:45 Range/Units White Blood Count 8.45 4.8-10.8 K/uL Red Blood Count 3.95 4.2-5.4 M/uL Hemoglobin 12.1 12.0-16.0 g/dL Hematocrit 35.8 37-47 % Mean Corpuscular Volume 90.6 80-100 fL Mean Corpuscular Hemoglobin 30.6 25-34 pg Mean Corpuscular Hemoglobin Concent 33.8 32-36 g/dl Platelet Count 239 130-400 K/uL Mean Platelet Volume 10.1 7.4-10.4 fL Neutrophils (%) (Auto) 58.8 % Lymphocytes (%) (Auto) 33.5 % Monocytes (%) (Auto) 4.7 % Eosinophils (%) (Auto) 2.6 % Basophils (%) (Auto) 0.2 % Neutrophils # (Auto) 4.96 1.4-6.5 K/uL Lymphocytes # (Auto) 2.83 1.2-3.4 K/uL Monocytes # (Auto) 0.40 0.11-0.59 K/uL Eosinophils # (Auto) 0.22 0-0.5 K/uL Basophils # (Auto) 0.02 0-0.2 K/uL RDW Standard Deviation 42.2 36.4-46.3 fL RDW Coefficient of Variation 12.6 11.5-14.5 % Immature Granulocyte % (Auto) 0.2 % Immature Granulocyte # (Auto) 0.02 0.00-0.02 K/uL Activated Partial Thromboplast Time 52.0 51.2 21.0-31.0 SECONDS Partial Thromboplastin Ratio 2.0 2.0 Total Creatine Kinase 133 177 26-192 U/L Creatine Kinase MB 13.1 18.6 0.5-3.6 ng/ml Creatine Kinase MB Ratio 9.8 10.5 0-3.0 Troponin I 1.750 2.280 0-0.045 ng/ml Sodium Level 143 136-145 mmol/L Potassium Level 3.5 3.5-5.1 mmol/L Chloride Level 108 98-107 mmol/L Carbon Dioxide Level 24 21-32 mmol/L Anion Gap 11.0 3-11 mmol/L Blood Urea Nitrogen 10 7-18 mg/dl Creatinine 0.71 0.60-1.20 mg/dl Est Creatinine Clear Calc Drug Dose 97.4 ml/min Estimated GFR () 106.5 Estimated GFR (Non- 91.9 BUN/Creatinine Ratio 14.1 10-20 Random Glucose 106 70-99 mg/dl Calcium Level 8.8 8.5-10.1 mg/dl Magnesium Level 2.0 1.8-2.4 mg/dl Assessment and Plan 61 year old female with PMH of HTN, and hyperlipidemia presented to [facility] with chest pain that radiated down her left arm ST ELEVATION [place] - Patient with initial ST elevations in lead 1 and AVL in the field - Was given nitroglycerin and chest pain had resolved. - Troponins elevated at .718 -->1.750 -->2.280 - Was started on heparin drip, aspirin, metoprolol, lipitor, nitropaste and nitrotab prn for chest pain - Cardiology was consulted for catheterization - Echo pre-cath showed mild inferior wall hypokinesis with EF of 65% - CT showed enlarged aorta of 4.3cm x 4.2cm (will need follow up as outpatient) - Patient was pre treated with methylprednisolone, benadryl and ranitidine due to allergy to iodinated agents (before cath) - Patient will needed to be on dual antiplatelet depending on cath results - Patient should also be put on LOREN inhibitor before discharge Non Sustained Vtach overnight - 2 runs of 7 beats overnight and 1 beat of 3 overnight - EF normal - Replace electrolytes - Potassium 3.5 of repeat this morning, originally 3.2 in the ED - Replete with 40meq OD for goal potassium greater then 4.0 - Continue to monitor on telemetry post cath Hypercholesterolemia - high dose statin lipitor 80mg Asthma - continue asmanex and albuterol Gerd - pantoprazole Post- menopausal symptoms - on estradiol patch, will stop as this is considerable risk factor for clot formation DVT prophylaxis - will started lovenox 40meq Diet - Heart Health diet FULL CODE Continued [facility] stay due to: multiple IV medications needed, home environment unsafe for pt Reviewed: Pt Seen/Exam by Me History Resident Physician Supervision Note: I was present with Dr. Rausch during the history and exam. I discussed the case with the resident and agree with the findings and plan as documented in the note. Any exceptions or clarifications are listed here: Heart Alert was called just before I saw the pt in the morning but was a planned Heart Alert to get cath team alerted. Pt was not having any current CP but with residual left arm numbness as above, She denies SOB but reported a lot of anxiety about procedure. Vitals stable Physical Exam General Appearance: WD/WN, no apparent distress Neck: supple, no JVD, no carotid bruits Respiratory/Chest: no respiratory distress, no accessory muscle use, + crackles (crackles at the bases bilaterally) Cardiovascular: regular rate, rhythm, no edema, no JVD, no murmur Abdomen: normal bowel sounds, non tender, soft Extremities: normal range of motion, non-tender, no calf tenderness, normal capillary refill Pt is a 61 yo female with questionable STEMI that resolved with NTG, ASA, no heart alert called initially due to resolution of ECG changes in ER. Troponin trending upwards consistent with ischemia. -cardiac catheterization now and appreciate Cardiology management -will need DAPT if stent placed -continue other cardiac meds as above -EF normal but with hypokinesis on ECHO, crackles in lungs, watch for CHF -smoking cessation to be encouraged Documented By: Bess Corbin
[2017-03-20] MEDS ORDERED: FENTANYL CITRATE INJ 50 MCG/1 ML 2 ML VIAL ONE (13:05)
[2017-03-20] MEDS ORDERED: CLOPIDOGREL BISULFATE 300 MG TAB PO ONE (13:14)
--- NOTE | 2017-03-20 13:16 | Procedure Note ---
Pre-Mod Sedation Assessment General Date of Moderate Sedation: Mar 20, 2017. Vital Signs: Vital Signs Past 12 Hours Date Time Temp Pulse Resp B/P (MAP) Pulse Ox O2 Delivery O2 Flow Rate FiO2 03/20/17 08:00 93 Room Air 03/20/17 07:36 36.4 83 16 124/70 (88) 93 Room Air 03/20/17 04:46 95 Room Air 03/20/17 04:00 36.6 69 20 103/67 (79) 95 Room Air Review Cardiovascular: regular rate, rhythm, no edema Abdomen: normal bowel sounds, non tender Lungs: chest non-tender, lungs clear Airway Class: II Pre-Sedation Airway Assessment Oral Cavity: WNL Able to Visualize Vocal Cords: No Short Thick Neck: No Hx of Sleep Apnea: No Smoking Status: Current Some Day Smoker Mallampati Classification: Class III ASA Classification: Class III Procedure Planning Contraindications-for Mod Sed: None Yes Notes The planned sedation has been discussed with the patient and consent obtained. I have identified the patient, determined the appropriateness of sedation and have assessed the patient immediately prior to the procedure. All medicine(s) and interventions are by my order.
--- NOTE | 2017-03-20 13:17 | Procedure Note ---
Post-Mod Sedation Assessment General Date of Moderate Sedation Mar 20, 2017. Vital Signs: Vital Signs Past 12 Hours Date Time Temp Pulse Resp B/P (MAP) Pulse Ox O2 Delivery O2 Flow Rate FiO2 03/20/17 08:00 93 Room Air 03/20/17 07:36 36.4 83 16 124/70 (88) 93 Room Air 03/20/17 04:46 95 Room Air 03/20/17 04:00 36.6 69 20 103/67 (79) 95 Room Air Review - Discharge Criteria Vital Signs Stable: Yes Alert/Oriented/Conversant: Yes Returned to Baseline Mental St: Yes Nausea Absent/Minimal: Yes Pain/Discomfort/Absent/Minimal: Yes Normal/Baseline Respirations: Yes Active Bleeding?: No Pt Received D/C Instructions: N/A Prescriptions Given: None Specific Proced. D/C Criteria Distal Pulses Present (Cardiac: Yes Groin site assessed-Card Cath: N/A Voided Prior To Discharge: N/A Discharged Patients Adult Escort/Transportation: Yes
--- NOTE | 2017-03-20 13:49 | Cardiac Catheterization ---
Procedure Note Procedure Date Mar 20, 2017. Pre-Procedure Diagnosis Non STEMI AUC Score 8 Post-Procedure Diagnosis Severe CAD, Successful PCI, Normal Intracardiac Pressures Procedure(s) Performed Coronary Angiography, Left Heart Cath, Drug Eluting Stent, Fractional Flow [place] [employer] T[employer] Typewriter Operator(s) Glunt Estimated Blood Loss 15 Medication(s) Clopidogrel, Fentanyl, Heparin, Hydralazine, Integrilin, Nicardipine, Nitroglycerin, Versed, Lidocaine 1%, Adenosine Summary of Findings Indication: High-risk NSTEMI Access: 6Fr Right Radial artery Catheters: [place]; EBU 3.5 guide Findings: LM - Luminal irregularities LAD - Moderate caliber, 20% ostial stenosis; diffuse 70% mid segment stenosis; distal luminal irregularities to apex. Small (1 mm vessel) 1st diagonal with diffuse proximal disease which appears to be occluded in the mid segment. Circumflex - Large caliber, mid to distal segment with sequential 40% and 50-60 % lesions. High 1st OM with 30-40% proximal stenosis, 60-70% distal stenosis; very small branch off OM1 occluded and fills retrograde via left to left collaterals. RCA - Dominant, moderate caliber, 20-30% diffuse mid segment disease; luminal irregularities in R-PDA LVEDP - 15 Small 1st diagonal thought to be potential culprit vessel but too small for any intervention. Very branch small off OM1 thought to be chronic. On pre-procedure echo mild inferolateral hypokinesis. FFR of mid to distal circumflex showed: iFR 0.96, FFR 0.91 FFR mid LAD: iFR 0.84, FFR 0.73 after 1 minute -- PCI of LAD -- Antithrombotic therapy: Heparin, Clopidogrel Procedure: LM cannulated with EBU 3.5 guide BMW wire passed across lesion into distal vessel Mid LAD lesion predilated with 2.5 compliant balloon Dilated lesion stented with 2.5 x 33 Xience ANGEL Stent post-dilated with 3.0 noncompliant balloon IC vasodilators administered for spasm Post procedure TONIE 3 flow, stent well expanded with minimal residual stenosis and no apparent cardiac complications. Arterial Closure: TR Band Summary: 1. Diffuse 70% mid LAD stenosis (Flow-limiting by FFR 0.73) 2. Moderate 50-60% non-obstructive circumflex disease (FFR 0.91). Distal OM1 60 -70% stenosis 3. Severe disease in 1st diagonal, branch of OM1 (Too small for intervention) 4. Normal intracardiac filling pressure 5. Successful PCI of mid LAD with single ANGEL (2.5 x 30 Xience, post-dilated to 3.0) Recommendations: To PCU for continued monitoring Loaded with Clopidogrel in laborer/key man Continue dual-antiplatelet therapy with ASA/Clopidogrel for 1 year High-intensity statin, beta-kristopher, LOREN and ASCVD risk factor modification including smoking cessation. Consult cardiac Rehab Hemodynamics Rest Ao: 133/71/100 Final Ao: 137/71/101 LV: 133/15 Recommendations PCI without planned CABG Specimens None Radiation Exposure (mGy) 4283 Contrast (mls) 210 Visi Fluids (cc crystalloids) 200 NSS Drains None Anesthesia Moderate Procedural Complication(s) None Disposition PCU ACC Data Cardiac Status Clinical evaluation leading to the procedure CAD Presntation: Non STEMI Anginal Classification: CCS IV Heart Failure: No, NYHA Class: CCS I Cardiogenic Shock w/in 24Hrs: No Cardiac Arrest w/in 24Hrs: No Imaging studies past 6 months: Yes Stress studies past 6 months: No Coronary Anatomy Dominant: Right Left Main (% Stenosis): Normal LAD (% Stenosis): Mid (70) D1 (% Stenosis): Mid (100 (small)) Circumflex (% Stenosis): Mid (40), Distal (50-60) OM1 (% Stenosis): Proximal (30-40), Distal (60-70) R PDA (% Stenosis): Mid (20-30) Diagnostic Physician's Name: Nazario Mitchell MD Status: Urgent Closure Device Percutaneous Entry Location: Radial Closure Device: Radial Band Recommendations: PCI without planned CABG PCI Indication: PCI for high risk Non-STEMI Lesion Segment Name: Mid LAD Culprit Artery: Yes Stenosis Prior to Rx (%): 70 Chronic Total Occlusion: No IVUS: No FFR: Yes Ratio: less than or equal to 0.75% Pre-Procedure TONIE Flow: 3 Previously Treated Lesion: No Lesion Complexity: Non-High/Non-C Lesion Length (mm): 25 Thrombus Present: No Bifurcation Lesion: No Guidewire Across Lesion: Yes Guidewire: Stenosis Post-Procedure (%): 0 Post-Procedure TONIE Flow: 3 Device(s) Deployed: Yes Intraprocedure Events Significant Dissection: No Perforation: No
[2017-03-20] MEDS ORDERED: MoRPHine SULFATE 2 MG/ML CARP IV PRN (14:00)
[2017-03-20] MEDS ORDERED: ONDANSETRON INJ 2 MG/ML 2 ML VIAL IV PRN (14:00)
[2017-03-20] MEDS ORDERED: SODIUM CHLORIDE 0.9% 1000ML 1,000 ML IV SCH (14:00)
[2017-03-20] MEDS ORDERED: NITROGLYCERIN 0.4 MG SL PER TAB CHARGE SL PRN (14:00)
[2017-03-20] MEDS ORDERED: NURSING VERBAL MED ORDER ONE (15:45)
[2017-03-20] MEDS: TRAMADOL HCL 50 MG TAB PO PRN ×2 (16:12→21:41)
[2017-03-20] MEDS: NITROGLYCERIN OINT 2% 1GM PACKET EXT SCH (17:20)
[2017-03-20] MEDS: MOMETASONE FUROATE 14 PUFF/1 INHALER INH SCH (21:00)
[2017-03-20] MEDS: ATORVASTATIN 40 MG TAB PO SCH (21:00)
[2017-03-20] MEDS ORDERED: POTASSIUM CHLORIDE 20 MEQ TABCR PO ONE (21:00)
[2017-03-20] MEDS ORDERED: POTASSIUM CHLORIDE 20 MEQ TABCR PO SCH (21:00)
[2017-03-20] MEDS: PANTOprazole SOD 40 MG TAB PO SCH (21:42)
--- NOTE | 2017-03-20 22:40 | CARDIOLOGY CONSULTATION ---
DATE OF CONSULTATION: 03/20/2017 CARDIOLOGY CONSULTATION note CONSULTATION REQUEST BY: Dr. Murphy. REASON FOR CONSULTATION: NSTEMI. HISTORY OF PRESENT ILLNESS: Mrs. Vasquez is a very pleasant 61-year-old woman with a history of hypertension, hyperlipidemia, asthma, who presented yesterday in the setting of new onset chest pain. The patient states that she had been in the usual state of health up until 2 days prior to admission when developed a brief episode of burning chest pain up into her neck into her jaw that lasted for minutes. This pain went away; however, recurred the day of admission lasting for approximately an hour. Pain initially started while she was at rest. Pain persisted until she was seen in the Emergency Department and received sublingual nitroglycerin. She got an initial EKG which showed subtle ST elevations in 1 and aVL. Her subsequent EKG showed resolution of ST changes. Her initial troponin was negative, but subsequently trended up to 1.75 and 2.2. She remained chest pain free overnight but had episodes of nonsustained VT on telemetry. This morning, decision was made to take the patient to cardiac catheterization lab for further evaluation. She was found to have small branch disease with likely an acutely occluded first diagonal (1 mm vessel) and a very small branch open OM that filled via left to left collaterals in a retrograde fashion. In addition to that, she was noted to have some moderate disease in her circumflex, which was negative for hemodynamically significant by FFR and a diffuse mid LAD stenosis up to 70% which was positive FFR 0.73 for flow-limiting disease. She underwent PCI with 1 drug-eluting stent placement to her mid LAD with good angiographic result. She had some mild residual chest pain after procedure but no additional ST changes. PAST MEDICAL HISTORY: 1. Hypertension. 2. Hyperlipidemia. 3. Asthma. 4. Allergic rhinitis. 5. Osteoarthritis. 6. Anxiety. FAMILY HISTORY: She had a father who had coronary artery disease and bypass surgery. No history of sudden cardiac . SOCIAL HISTORY: She is an ongoing smoker, who smokes about 5 cigarettes a day. She is . She works as a dental hygienist. CURRENT MEDICATIONS: Include albuterol inhaler, aspirin 81, B complex, vitamins, cholecalciferol, estradiol, fish oil, hydrochlorothiazide/losartan 12.5/50, mometasone inhaler and omeprazole. ALLERGIES: ALLERGIC TO CONTRAST DYE WITH REPORTED ANAPHYLAXIS AT AGE 20. REVIEW OF SYSTEMS: Ten point review of systems completed and otherwise negative or listed in HPI. PHYSICAL EXAMINATION: VITAL SIGNS: Temperature 36.7, pulse 68, blood pressure 114/65, satting 95% on room air. GENERAL: The patient appears comfortable in no acute distress. HEENT: Sclerae are anicteric. Oropharynx is clear. Mucous membranes are moist. NECK: Supple with no lymphadenopathy. LUNGS: Clear to auscultation bilaterally. CARDIAC: She has a regular rate and rhythm with no murmurs, rubs or gallops. ABDOMEN: Soft, nontender, nondistended with positive bowel sounds. EXTREMITIES: Warm. She had no significant lower extremity edema. She had intact distal pulses including 2+ radial pulses bilaterally. SKIN: No rashes or lesions. NEUROLOGIC: Nonfocal. PSYCHIATRIC: Alert, oriented and appropriate. LABORATORY DATA: Sodium 143, potassium 3.5, BUN 10, creatinine of 0.7. LFTs were within normal limits. Her troponin went from 0-0.7 to 1.7-2.2. CK-MB was 5.5, 13.1 and 18.6. Hemoglobin of 12.1, platelets of 239. IMAGING DATA: Chest x-ray showed no acute cardiopulmonary process. Noncontrast CT showed no acute cardiopulmonary process with mild fusiform dilation of the ascending aorta 4.3-4.2 cm. There were also coronary arterial calcifications. Echocardiogram showed preserved LV function with an EF of 60-65%. There was some mild inferolateral hypokinesis. No significant valvular pathology. Ascending aorta was mildly dilated at 4.0 cm. EKGs: Initial EKG showed subtle ST elevation in I and aVL with reciprocal changes in III and AVF. There was also a subtle ST elevation in V2. Subsequent EKG this morning showed sinus rhythm with nonspecific ST changes. IMPRESSION AND PLAN: 1. [id number] elevation myocardial infarction. 2. Severe LAD disease status post percutaneous coronary intervention with drug-eluting stent. 3. Ascending aortic dilation 4. Hyperlipidemia. 5. Residual moderate nonobstructive coronary artery disease. The patient is status post PCI with drug-eluting stent to her LAD. She has some residual small branch disease as well as moderate nonobstructive epicardial disease. Going forward, the patient was loaded with clopidogrel in the label stitcher and will continue dual antiplatelet therapy for the next year. Continue high intensity statin as well as beta kristopher and resume prior ARB. The patient counseled on benefit of smoking cessation and will need cardiac rehabilitation as an outpatient. The patient was having some mild chest pain postprocedure, suspect this is secondary to aggressive stent expansion. Mild residual pain can be treated with morphine as needed. If significant changes in symptoms would repeat an EKG overnight. We will continue to follow while in the hospital. Thank you for consultation. BOY
[2017-03-21] MEDS: NITROGLYCERIN OINT 2% 1GM PACKET EXT SCH ×2 (00:27→06:10)
[2017-03-21 03:05] VITALS: BP 133/77; PULSE 74; TEMP 37; O2SAT 99
[2017-03-21 05:54] LABS: BASO % 0.1 %; BASO ABS # 0.01 K/uL (0-0.2); COMPLETE YES; EOS % 0.1 %; HEMATOCRIT 36.8 % (37-47); IG% 0.4 %; LYMPH % 14.4 %; LYMPH ABS # 2.19 K/uL (1.2-3.4); MEAN CORPUSCULAR HEMOGLOBIN 31.3 pg (25-34); MEAN CORPUSCULAR HGB CONC 34.8 g/dl (32-36); MEAN PLATELET VOLUME 10.1 fL (7.4-10.4); MONO % 5.9 %; NEUT % 79.1 %; PLATELET COUNT 261 K/uL (130-400); RED BLOOD COUNT 4.09 M/uL (4.2-5.4); WHITE BLOOD COUNT 15.17 K/uL (4.8-10.8)
[2017-03-21 06:27] LABS: BUN/CREATININE RATIO 11.9 (10-20); CALCIUM 8.3 mg/dl (8.5-10.1); CREATININE 0.69 mg/dl (0.60-1.20); POTASSIUM 3.6 mmol/L (3.5-5.1)
[2017-03-21 08:10] VITALS: BP 136/86; PULSE 73; TEMP 36.5; O2SAT 94
[2017-03-21] MEDS: CLOPIDOGREL BISULFATE 75 MG TAB PO SCH (08:11)
[2017-03-21] MEDS: ASPIRIN 81 MG ECTAB PO SCH (08:11)
[2017-03-21] MEDS: METOPROLOL TARTRATE 25 MG TAB PO SCH ×2 (08:11→20:24)
[2017-03-21] MEDS: VITAMIN B COMPLEX TAB PO SCH (08:11)
[2017-03-21] MEDS: CHOLECALCIFEROL 1000 INTER.UNIT TAB PO SCH (08:12)
[2017-03-21] MEDS: ENOXAPARIN 40 MG/0.4 ML SYR SQ SCH (08:12)
[2017-03-21] MEDS: ALBUTEROL HFA 8 GM INHALER INH SCH ×2 (08:13→20:23)
[2017-03-21] MEDS: MOMETASONE FUROATE 14 PUFF/1 INHALER INH SCH ×2 (08:13→20:25)
[2017-03-21] MEDS: TRAMADOL HCL 50 MG TAB PO PRN (09:19)
--- NOTE | 2017-03-21 09:52 | Cardiology Follow-Up ---
Subjective Subjective Date of Service: Mar 21, 2017. Pt evaluation today including: conversation w/ patient, physical exam, chart review, lab review, review of studies, review of inpatient medication list Additional Details: Feeling well. Still with some mild persistent pain in chest shoulders which has had since procedure. Tele reviewed -- no new events. Problem List Medical Problems: (1) EKG abnormalities Status: Acute (2) Precordial chest pain Status: Acute Review of Systems Constitutional: No fever, No chills, No sweats Respiratory: No cough, No sputum, No wheezing, No shortness of breath Cardiac: No chest pain, No edema, No palpitations Abdomen: No pain, No nausea, No vomiting, No diarrhea Musculoskeletal: No joint pain, No muscle pain Neurologic: + numbness/tingling Psychiatric: + anxiety Skin: No rash, No itch, No new/changing skin lesions Objective Vital Signs Last Vital Signs Documentation Date Time Temp Pulse Resp B/P (MAP) Pulse Ox O2 Delivery O2 Flow Rate FiO2 03/21/17 08:10 36.5 73 19 136/86 (103) 94 Room Air Physical Exam: General Appearance: no apparent distress Neck: supple, no JVD Respiratory/Chest: no respiratory distress, no accessory muscle use Cardiovascular: regular rate, rhythm, no edema, no JVD, no murmur Abdomen: normal bowel sounds, non tender, soft Extremities: no pedal edema, no calf tenderness, + pertinent finding (right radial artery -- no ecchymosis/hematoma. Intact pulse, distal sensation) Neurologic/Psychiatric: alert, normal mood/affect, oriented x 3 Skin: normal color, warm/dry Assessment and Plan 1. NSTEMI 2. Multivessel CAD -- s/p PCI with ANGEL to mid LAD 3. HTN 4. HLD 5. Mild ascending aorta dilation Mild residual chest pain this AM. Low suspicion represents coronary ischemia. Suspect troponin related to intervention. Renal function stable. No access complications. -- Repeat ECG this AM. Repeat troponin later this afternoon to make sure trending down. -- Continue DAPT with ASA/Clopidogrel -- Change atorvastatin --> to crestor -- continue metoprolol, add back losartan -- d/c nitro-patch If ecg/trop stable would plan for discharge tomorrow AM. Continued [facility] stay due to: multiple IV medications needed, home environment unsafe for pt Medications: Current Inpatient Medications Medications (Trade) Dose Ordered Sig/Sean Route Start Time Stop Time Status Last Admin Dose Admin Acetaminophen (Tylenol Tab) 650 mg Q4H PRN PO 03/19/17 19:00 04/18/17 18:59 03/21/17 03:55 650 MG Zolpidem Tartrate (Ambien Tab) 5 mg HSZ PRN PO 03/19/17 19:00 04/18/17 18:59 Aspirin (Ecotrin Tab) 81 mg QAM PO 03/20/17 09:00 04/19/17 08:59 03/21/17 08:11 81 MG Miscellaneous Information (Order Awaiting Action) 1 ea QS N/A 03/20/17 00:00 04/19/17 00:00 Vitamin B Complex (Vitamin B Complex) 1 tab QAM PO 03/20/17 09:00 04/19/17 08:59 03/21/17 08:11 1 TAB Cholecalciferol (Vitamin D Tab) 2,000 inter.unit QAM PO 03/20/17 09:00 04/19/17 08:59 03/21/17 08:12 2,000 INTER.UNIT Pantoprazole Sodium (Protonix Tab) 40 mg HS PO 03/19/17 21:00 04/18/17 20:59 03/20/17 21:42 40 MG Metoprolol Tartrate (Lopressor Tab) 25 mg BID PO 03/19/17 21:00 04/18/17 20:59 03/21/17 08:11 25 MG Albuterol (Ventolin Hfa Inhaler) 2 puffs BID INH 03/19/17 21:00 04/18/17 20:59 03/21/17 08:13 2 PUFFS Atorvastatin Calcium (Lipitor Tab) 80 mg HS PO 03/19/17 21:00 04/18/17 20:59 Mometasone Furoate (Asmanex 220MCG Inh) 1 puff BID INH 03/20/17 21:00 04/19/17 20:59 03/21/17 08:13 1 PUFF Enoxaparin Sodium (Lovenox Inj) 40 mg QAM SQ 03/21/17 09:00 04/20/17 08:59 03/21/17 08:12 40 MG Nitroglycerin (Nitrostat Tab) 0.4 mg UD PRN SL 03/20/17 14:00 04/19/17 13:59 Ondansetron HCl (Zofran Inj) 4 mg Q6H PRN IV 03/20/17 14:00 04/19/17 13:59 Clopidogrel Bisulfate (plAVix TAB) 75 mg QAM PO 03/21/17 09:00 04/20/17 08:59 03/21/17 08:11 75 MG Morphine Sulfate (MoRPHine SULFATE INJ) 2 mg Q4 PRN IV 03/20/17 14:00 Tramadol HCl (Ultram Tab) 50 mg Q4H PRN PO 03/20/17 16:00 04/19/17 15:59 03/21/17 09:19 50 MG Nitroglycerin (Nitroglycerin 2% Oint) 1 inch Q6 EXT 03/20/17 18:00 04/19/17 17:59 03/21/17 06:10 1 INCH Lab Results: 03/21/17 05:22 Red Blood Count 4.09, Mean Corpuscular Volume 90.0, Mean Corpuscular Hemoglobin 31.3, Mean Corpuscular Hemoglobin Concent 34.8, Mean Platelet Volume 10.1, Neutrophils (%) (Auto) 79.1, Lymphocytes (%) (Auto) 14.4, Monocytes (%) (Auto) 5.9, Eosinophils (%) (Auto) 0.1, Basophils (%) (Auto) 0.1, Neutrophils # (Auto) 12.00, Lymphocytes # (Auto) 2.19, Monocytes # (Auto) 0.89, Eosinophils # (Auto) 0.02, Basophils # (Auto) 0.01 03/21/17 05:22 Test 03/20/17 12:51 03/20/17 18:05 03/20/17 18:24 03/21/17 05:22 Kaolin Activated Coagulation Time 235 SECONDS (94-140) Creatine Kinase MB Ratio (0-3.0) Creatine Kinase MB 17.8 ng/ml (0.5-3.6) White Blood Count 15.17 K/uL (4.8-10.8) Red Blood Count 4.09 M/uL (4.2-5.4) Hemoglobin 12.8 g/dL (12.0-16.0) Hematocrit 36.8 % (37-47) Mean Corpuscular Volume 90.0 fL (80-100) Mean Corpuscular Hemoglobin 31.3 pg (25-34) Mean Corpuscular Hemoglobin Concent 34.8 g/dl (32-36) Platelet Count 261 K/uL (130-400) Mean Platelet Volume 10.1 fL (7.4-10.4) Neutrophils (%) (Auto) 79.1 % Lymphocytes (%) (Auto) 14.4 % Monocytes (%) (Auto) 5.9 % Eosinophils (%) (Auto) 0.1 % Basophils (%) (Auto) 0.1 % Neutrophils # (Auto) 12.00 K/uL (1.4-6.5) Lymphocytes # (Auto) 2.19 K/uL (1.2-3.4) Monocytes # (Auto) 0.89 K/uL (0.11-0.59) Eosinophils # (Auto) 0.02 K/uL (0-0.5) Basophils # (Auto) 0.01 K/uL (0-0.2) RDW Standard Deviation 41.3 fL (36.4-46.3) RDW Coefficient of Variation 12.6 % (11.5-14.5) Immature Granulocyte % (Auto) 0.4 % Immature Granulocyte # (Auto) 0.06 K/uL (0.00-0.02) Activated Partial Thromboplast Time 26.0 SECONDS (21.0-31.0) Partial Thromboplastin Ratio 1.0 Anion Gap 7.0 mmol/L (3-11) Est Creatinine Clear Calc Drug Dose 103.3 ml/min Estimated GFR () 108.9 Estimated GFR (Non- 94.0 BUN/Creatinine Ratio 11.9 (10-20) Calcium Level 8.3 mg/dl (8.5-10.1) Magnesium Level 2.0 mg/dl (1.8-2.4) Troponin I 5.340 ng/ml (0-0.045)
[2017-03-21 11:30] VITALS: BP 141/85; PULSE 59; TEMP 36.7; O2SAT 94
[2017-03-21] MEDS: ROSUVASTATIN CALCIUM 20 MG TAB PO SCH (12:05)
[2017-03-21 16:15] VITALS: BP 141/92; PULSE 57; TEMP 36.5; O2SAT 96
--- NOTE | 2017-03-21 18:22 | Family Medicine Progress Note ---
Progress Note Date of Service Mar 21, 2017. Subjective Pt evaluation today including: conversation w/ patient, physical exam, chart review, lab review, review of studies Pain: 3/10 burning chest pain Voiding: no voiding problems, no incontinence Patient states she is having 3/10 burning discomfort over her upper chest radiating to her back. She states that it is the same discomfort that she had after the cardiac catheterization last night. She denies any nausea, vomiting, lightheadedness, shortness of breath, diarrhea, abdominal pain. Constitutional: + fatigue, No fever, No chills Respiratory: No cough, No shortness of breath, No dyspnea at rest Cardiovascular: No chest pain, No palpitations Abdomen: No pain, No nausea, No vomiting, No diarrhea, No constipation Medications Current Inpatient Medications Medications (Trade) Dose Ordered Sig/Sean Route Start Time Stop Time Status Last Admin Dose Admin Acetaminophen (Tylenol Tab) 650 mg Q4H PRN PO 03/19/17 19:00 04/18/17 18:59 03/21/17 03:55 650 MG Zolpidem Tartrate (Ambien Tab) 5 mg HSZ PRN PO 03/19/17 19:00 04/18/17 18:59 Aspirin (Ecotrin Tab) 81 mg QAM PO 03/20/17 09:00 04/19/17 08:59 03/21/17 08:11 81 MG Miscellaneous Information (Order Awaiting Action) 1 ea QS N/A 03/20/17 00:00 04/19/17 00:00 Vitamin B Complex (Vitamin B Complex) 1 tab QAM PO 03/20/17 09:00 04/19/17 08:59 03/21/17 08:11 1 TAB Cholecalciferol (Vitamin D Tab) 2,000 inter.unit QAM PO 03/20/17 09:00 04/19/17 08:59 03/21/17 08:12 2,000 INTER.UNIT Pantoprazole Sodium (Protonix Tab) 40 mg HS PO 03/19/17 21:00 04/18/17 20:59 03/20/17 21:42 40 MG Metoprolol Tartrate (Lopressor Tab) 25 mg BID PO 03/19/17 21:00 04/18/17 20:59 03/21/17 08:11 25 MG Albuterol (Ventolin Hfa Inhaler) 2 puffs BID INH 03/19/17 21:00 04/18/17 20:59 03/21/17 08:13 2 PUFFS Mometasone Furoate (Asmanex 220MCG Inh) 1 puff BID INH 03/20/17 21:00 04/19/17 20:59 03/21/17 08:13 1 PUFF Enoxaparin Sodium (Lovenox Inj) 40 mg QAM SQ 03/21/17 09:00 04/20/17 08:59 03/21/17 08:12 40 MG Nitroglycerin (Nitrostat Tab) 0.4 mg UD PRN SL 03/20/17 14:00 04/19/17 13:59 Ondansetron HCl (Zofran Inj) 4 mg Q6H PRN IV 03/20/17 14:00 04/19/17 13:59 Clopidogrel Bisulfate (plAVix TAB) 75 mg QAM PO 03/21/17 09:00 04/20/17 08:59 03/21/17 08:11 75 MG Morphine Sulfate (MoRPHine SULFATE INJ) 2 mg Q4 PRN IV 03/20/17 14:00 Tramadol HCl (Ultram Tab) 50 mg Q4H PRN PO 03/20/17 16:00 04/19/17 15:59 03/21/17 09:19 50 MG Rosuvastatin Calcium (Crestor Tab) 20 mg QAM PO 03/21/17 10:00 04/20/17 09:59 03/21/17 12:05 20 MG Objective Vital Signs Date Time Temp Pulse Resp B/P (MAP) Pulse Ox O2 Delivery O2 Flow Rate FiO2 03/21/17 16:15 36.5 57 20 141/92 (108) 96 Room Air 03/21/17 16:00 Room Air 03/21/17 12:00 Room Air 03/21/17 11:30 36.7 59 19 141/85 (103) 94 Room Air 03/21/17 08:10 36.5 73 19 136/86 (103) 94 Room Air 03/21/17 08:00 Room Air 03/21/17 04:00 Room Air 03/21/17 03:05 37.0 74 18 133/77 (95) 99 Room Air 03/21/17 00:02 Room Air 03/20/17 22:55 36.6 72 18 124/73 (90) 95 Room Air 03/20/17 20:35 36.4 74 16 144/81 (102) 94 Room Air 03/20/17 20:00 Room Air Physical Exam General Appearance: WD/WN, no apparent distress Eyes: normal inspection, sclerae normal Respiratory/Chest: chest non-tender, lungs clear, normal breath sounds Cardiovascular: regular rate, rhythm, no edema, no gallop Abdomen: normal bowel sounds, non tender, soft Neurologic/Psychiatric: alert, normal mood/affect, oriented x 3 Laboratory Results Results Past 24 Hours Test 03/20/17 18:24 03/21/17 05:22 03/21/17 14:48 Range/Units Creatine Kinase MB 17.8 0.5-3.6 ng/ml Troponin I 1.760 5.340 6.350 0-0.045 ng/ml White Blood Count 15.17 4.8-10.8 K/uL Red Blood Count 4.09 4.2-5.4 M/uL Hemoglobin 12.8 12.0-16.0 g/dL Hematocrit 36.8 37-47 % Mean Corpuscular Volume 90.0 80-100 fL Mean Corpuscular Hemoglobin 31.3 25-34 pg Mean Corpuscular Hemoglobin Concent 34.8 32-36 g/dl Platelet Count 261 130-400 K/uL Mean Platelet Volume 10.1 7.4-10.4 fL Neutrophils (%) (Auto) 79.1 % Lymphocytes (%) (Auto) 14.4 % Monocytes (%) (Auto) 5.9 % Eosinophils (%) (Auto) 0.1 % Basophils (%) (Auto) 0.1 % Neutrophils # (Auto) 12.00 1.4-6.5 K/uL Lymphocytes # (Auto) 2.19 1.2-3.4 K/uL Monocytes # (Auto) 0.89 0.11-0.59 K/uL Eosinophils # (Auto) 0.02 0-0.5 K/uL Basophils # (Auto) 0.01 0-0.2 K/uL RDW Standard Deviation 41.3 36.4-46.3 fL RDW Coefficient of Variation 12.6 11.5-14.5 % Immature Granulocyte % (Auto) 0.4 % Immature Granulocyte # (Auto) 0.06 0.00-0.02 K/uL Activated Partial Thromboplast Time 26.0 21.0-31.0 SECONDS Partial Thromboplastin Ratio 1.0 Sodium Level 141 136-145 mmol/L Potassium Level 3.6 3.5-5.1 mmol/L Chloride Level 109 98-107 mmol/L Carbon Dioxide Level 25 21-32 mmol/L Anion Gap 7.0 3-11 mmol/L Blood Urea Nitrogen 8 7-18 mg/dl Creatinine 0.69 0.60-1.20 mg/dl Est Creatinine Clear Calc Drug Dose 103.3 ml/min Estimated GFR () 108.9 Estimated GFR (Non- 94.0 BUN/Creatinine Ratio 11.9 10-20 Random Glucose 112 70-99 mg/dl Calcium Level 8.3 8.5-10.1 mg/dl Magnesium Level 2.0 1.8-2.4 mg/dl Assessment and Plan 61 year old female with PMH of HTN and HLD presented to the ED with chest pain 1) STEMI - Patient with initial ST elevations in lead 1 and AVL in the field --> Given NTG and pain resolved, ED EKG showed no ST changes - Troponins elevated at .718 -->1.750 -->2.280 --> 5.340 --> 6.350 - Was started on heparin drip, aspirin, metoprolol, lipitor, nitropaste and nitrotab prn for chest pain - Echo: Mild inferior wall hypokinesis with EF of 65% - CT showed enlarged aorta of 4.3cm x 4.2cm (will need follow up as outpatient) - Cardiac Catheterization: Drug eluting stent placed in the LAD - Will require dual antiplatelet therapy for the next year with Aspirin and Plavix - Change Atorvastatin to Crestor, Continue Metoprolol, Add back Losartan - Patient was complaining of headache earlier so d/c nitro paste 2) Non Sustained Vtach overnight - No events on telemetry this evening, 3 runs of Vtach 2 nights ago - EF normal - Electrolytes wnl - Continue to monitor on telemetry post cath 3) Hypercholesterolemia - Atorvastatin 80mg (high dose) 4) Asthma - Continue Asmanex and Albuterol 5) GERD - Pantoprazole 6) Post-menopausal symptoms - Currently on estradiol patch, discontinue due to clotting risk 7) DVT prophylaxis - Lovenox 8) Code Status - Full Resuscitation 9) Disposition - Plan to discharge home tomorrow - Cardiac Rehab Resident Physician Supervision Note: I interviewed and examined the patient. Discussed with Dr. Nino and agree with findings and plan as documented in the note. Any exceptions or clarifications are listed here: None Documented By: Laith Solis feeling a little chest pain but better than before, EKG and troponins noted. cardiology input noted and appreciated. meds reviewed with pt. vitals noted nad breathing unlabored, no pallor or icterus NSTEMI - s/p stenting, med management, will discuss lifestyle, stabilizing, anticipate troponins to level off without much more rise. hopefully home tomorrow. answered all questions (pt and ) to the best of my ability and to their satisfaction Resident Tracking Resident Involvement: Resident Care Provided Care Provided: Adult Hospital Medicine
[2017-03-21 20:22] VITALS: BP 145/86; PULSE 76; TEMP 36.6; O2SAT 94
[2017-03-21] MEDS: PANTOprazole SOD 40 MG TAB PO SCH (20:24)
[2017-03-21 23:05] VITALS: BP 132/78; PULSE 69; TEMP 37.2; O2SAT 95
[2017-03-22 03:23] VITALS: BP 135/72; PULSE 76; TEMP 37.2; O2SAT 94
[2017-03-22 05:52] LABS: BASO % 0.2 %; BASO ABS # 0.02 K/uL (0-0.2); COMPLETE YES; EOS % 0.7 %; HEMATOCRIT 36.2 % (37-47); IG% 0.4 %; LYMPH ABS # 2.34 K/uL (1.2-3.4); MEAN CELL VOLUME 91.2 fL (80-100); MEAN CORPUSCULAR HEMOGLOBIN 31.2 pg (25-34); MEAN CORPUSCULAR HGB CONC 34.3 g/dl (32-36); MEAN PLATELET VOLUME 10.4 fL (7.4-10.4); MONO % 4.4 %; NEUT % 71.3 %; PLATELET COUNT 239 K/uL (130-400); RED BLOOD COUNT 3.97 M/uL (4.2-5.4); WHITE BLOOD COUNT 10.19 K/uL (4.8-10.8)
[2017-03-22 06:26] LABS: CALCIUM 8.4 mg/dl (8.5-10.1); CREATININE 0.64 mg/dl (0.60-1.20); POTASSIUM 3.6 mmol/L (3.5-5.1)
[2017-03-22 07:45] VITALS: BP 134/90; PULSE 78; TEMP 37.8; O2SAT 94
[2017-03-22] MEDS: ASPIRIN 81 MG ECTAB PO SCH (08:56)
[2017-03-22] MEDS: ENOXAPARIN 40 MG/0.4 ML SYR SQ SCH (08:56)
[2017-03-22] MEDS: CHOLECALCIFEROL 1000 INTER.UNIT TAB PO SCH (08:56)
[2017-03-22] MEDS: VITAMIN B COMPLEX TAB PO SCH (08:57)
[2017-03-22] MEDS: CLOPIDOGREL BISULFATE 75 MG TAB PO SCH (08:57)
[2017-03-22] MEDS: ROSUVASTATIN CALCIUM 20 MG TAB PO SCH (08:58)
[2017-03-22] MEDS: ALBUTEROL HFA 8 GM INHALER INH SCH (08:58)
[2017-03-22] MEDS: MOMETASONE FUROATE 14 PUFF/1 INHALER INH SCH (08:58)
[2017-03-22] MEDS: METOPROLOL TARTRATE 25 MG TAB PO SCH (08:58)
[2017-03-22] MEDS ORDERED: LPR25 PO (09:17)
[2017-03-22] MEDS ORDERED: PLV75 PO (09:17)
[2017-03-22] MEDS ORDERED: CRS20 PO (09:17)
--- NOTE | 2017-03-22 09:25 | Discharge Instructions ---
Discharge Instructions Date of Service Mar 22, 2017. Admission Reason for Admission: Ekg Abnormalities, Unstable Angina Discharge Discharge Diagnosis / Problem: Myocardial Infarction Discharge Goals Goal(s): Decrease discomfort, Improve function, Therapeutic intervention Activity Recommendations Activity Limitations: per Instructions/Follow-up section Lifting Limitations: gradually increase as tolerated Exercise/Sports Limitations: gradually increase as tolerated . Instructions / Follow-Up Instructions / Follow-Up You were seen in the hospital for chest pain and found to have signs and symptoms of a heart attack. You were taken for a Cardiac Catheterization by Dr. Mitchell (Freedom Of Information Officer - Heart Doctor), during which time he placed a stent in your heart. Afterwards your chest pain improved and then gradually resolved, along with improvement of the markers in your blood of heart damage. You will be discharged with medications to help prevent a future episode of a heart attack as well as rehab to improve your heart function. MEDICATIONS CHANGES: - Plavix 75mg: Take 1 tab by mouth every morning - Crestor 20mg: Take 1 tab by mouth every morning - Metoprolol 25mg: Take 1 tab by mouth twice daily - Stop taking Estradiol as this can increase your risk of future clots - Resume your other home medications FOLLOW UP APPOINTMENTS: - Follow up with Cardiology in 2 weeks - Follow up with your primary care provider in 1 week - Cardiac rehab will be arranged for approximately 3 weeks from now Current Hospital Diet Patient's current hospital diet: AHA Diet (Heart Healthy) Discharge Diet Recommended Diet: AHA Diet (Heart Healthy) Pending Studies Studies pending at discharge: no Medical Emergencies . Who to Call and When: Medical Emergencies: If at any time you feel your situation is an emergency, please call 911 immediately. . Non-Emergent Contact Non-Emergency issues call your: Primary Care Provider . . "Provider Documentation" section prepared by Kwame Nino. . VTE Core Measure Inpt VTE Proph given/why not?: Unfractionated heparin SQ (IV heparin standard dose with bolus per weight-based protocol. )
--- NOTE | 2017-03-22 09:27 | Discharge Summary ---
Discharge Summary Date of Service Mar 22, 2017. (Kwame Nino MD) Discharge Summary Admission Date: Mar 19, 2017 at 19:13 Discharge Date: Mar 22, 2017 Discharge Disposition: Home Principal Diagnosis: Myocardial Infarction Immunizations: Have You Had Influenza Vaccine: Unknown History of Tetanus Vaccine?: Unknown History of Pneumococcal: Unknown History of Hepatitis B Vaccine: Unknown (Kwame Nino MD) Medication Reconciliation New Medications: Clopidogrel Bisulfate (Clopidogrel) 75 Mg Tab 75 MG PO QAM for 30 Days, #30 TAB Metoprolol Tartrate (Lopressor) 25 Mg Tab 25 MG PO BID for 30 Days, #60 TAB Nitroglycerin (Nitrostat) 0.4 Mg/1 Tab Subl 0.4 MG SL UD PRN for Chest Pain for 10 Days, #10 TABS Take with chest pain sublingually. Take every 5 minutes for chest pain with maximum of 3 doses within 15 minutes. Rosuvastatin Calcium (Crestor) 20 Mg Tab 20 MG PO QAM for 30 Days, #30 TAB Continued Medications: Albuterol Hfa (Ventolin Hfa) 200 Puffs/85792 Mcg Aers 1 PUFF INH BID, #1 INHALER Aspirin (Aspirin Ec) 81 Mg Tab 81 MG PO DAILY B-Complex Vitamins (Vitamin B Complex) 1 Tab Tab 1 TAB PO DAILY Cholecalciferol (Vitamin D3) 2,000 Unit Cap 1 CAP PO DAILY for 90 Days, #90 CAP 3 Refills Fish Oil ([place]-3) 1 Ea Cap 1 CAP PO DAILY, CAP Hctz/Losartan (Hyzaar 12.5MG/50MG) Tab 1 TAB PO DAILY for 90 Days, #90 TAB 3 Refills Mometasone Furoate (Inhalation (Asmanex Hfa) 100 Mcg/Act Aer 1 PUFF INH BID Omeprazole (Prilosec) 20 Mg Capcr 20 MG PO DAILY, CAP Discontinued Medications: Estradiol (Estradiol) 0.075 Mg/24 Hr Dis 1 PATCH TD [id number] Discharge Exam Review of Systems: Constitutional: No fever, No chills, No weight loss Respiratory: No cough, No sputum, No shortness of breath Cardiovascular: No chest pain, No edema, No palpitations Abdomen: No pain, No nausea, No vomiting, No diarrhea, No constipation Physical Exam: General Appearance: WD/WN, no apparent distress Eyes: normal inspection, sclerae normal Respiratory/Chest: chest non-tender, lungs clear, normal breath sounds Cardiovascular: regular rate, rhythm, no edema, no gallop Abdomen / GI: normal bowel sounds, non tender, soft Extremities: normal inspection, no calf tenderness Neurologic/Psychiatric: alert, normal mood/affect, normal reflexes (Kwame Nino MD) Hospital Course 61 year old female with PMH of HTN and HLD presented to the ED with chest pain 1) STEMI - Patient with initial ST elevations in lead 1 and AVL in the field when EMS arrived --> Given NTG and pain resolved, in ED EKG showed no ST changes - Troponins elevated at .718 -->1.750 -->2.280 --> 5.340 --> 6.350 - Was started on heparin drip, aspirin, metoprolol, lipitor, nitropaste and nitrotab prn for chest pain - Echo: Mild inferior wall hypokinesis with EF of 65% - CT showed enlarged aorta of 4.3cm x 4.2cm (will need follow up as outpatient) - Cardiac Catheterization: Drug eluting stent placed in the LAD - Will require dual antiplatelet therapy for the next year with Aspirin and Plavix - Change Atorvastatin to Crestor, Continue Metoprolol, Add back Losartan - Patient was complaining of headache earlier so d/c nitro paste 2) Non Sustained Vtach overnight - No events on telemetry this evening, 3 runs of Vtach 2 nights ago - EF normal - Electrolytes wnl 3) Hypercholesterolemia - Crestor 20mg qAM 4) Asthma - Continue Asmanex and Albuterol 5) GERD - Pantoprazole 6) Post-menopausal symptoms - Currently on estradiol patch, discontinue due to clotting risk 7) DVT prophylaxis - Lovenox 8) Code Status - Full Resuscitation 9) Disposition - Cardiac Rehab Total Time Spent: Greater than 30 minutes This includes examination of the patient, discharge planning, medication reconciliation, and communication with other providers. (Kwame Nino MD) Resident Physician Supervision Note: I interviewed and examined the patient. Discussed with Dr. Nino and agree with findings and plan as documented in the note. Any exceptions or clarifications are listed here: None Documented By: Laith Solis feeling good no further chest pain. ready to go home. walked the halls well. extensive discussion on meds. discussed diet and exercise (starting w cardiac rehab) all questions answered to the best of my ability. vitals noted nad breathing unlabored no pallor or icterus labs noted NSTEMI - s/p cath and stent. medically stable, med management as above. explained meds, explained lifestyle. f/u being set up. Total Time Spent: Greater than 30 minutes (Laith Solis D.O.) Discharge Instructions Please refer to the electronic Patient Visit Report (Discharge Instructions) for additional information. (Kwame Nino MD) Additional Copies To Nasir Araiza M.D.
--- NOTE | 2017-03-22 10:26 | Cardiology Follow-Up ---
Subjective Subjective Date of Service: Mar 22, 2017. Pt evaluation today including: conversation w/ patient, physical exam, chart review, lab review, review of studies, review of inpatient medication list Additional Details: Feeling well. No recurrent chest pain. Up walking halls without any symptoms. Telemetry reviewed--no events overnight Problem List Medical Problems: (1) EKG abnormalities Status: Acute (2) Precordial chest pain Status: Acute Review of Systems Constitutional: + fatigue, No fever, No chills Respiratory: No cough, No shortness of breath, No dyspnea at rest Cardiac: No chest pain, No palpitations Abdomen: No pain, No nausea, No vomiting, No diarrhea, No constipation Musculoskeletal: No joint pain, No muscle pain Skin: No rash, No itch, No new/changing skin lesions Objective Vital Signs Last Vital Signs Documentation Date Time Temp Pulse Resp B/P (MAP) Pulse Ox O2 Delivery O2 Flow Rate FiO2 03/22/17 08:03 Room Air 03/22/17 07:45 37.8 78 16 134/90 (105) 94 Physical Exam: General Appearance: no apparent distress Neck: supple, no JVD Respiratory/Chest: chest non-tender, lungs clear, normal breath sounds Cardiovascular: regular rate, rhythm, no edema, no gallop Abdomen: normal bowel sounds, non tender, soft Extremities: no pedal edema, no calf tenderness, + pertinent finding (right radial artery -- no ecchymosis/hematoma. Intact pulse, distal sensation) Neurologic/Psychiatric: alert, normal mood/affect, oriented x 3 Skin: normal color, warm/dry Assessment and Plan 1. NSTEMI 2. Multivessel CAD -- s/p PCI with ANGEL to mid LAD 3. HTN 4. HLD 5. Mild ascending aorta dilation Patient chest pain-free today. Troponin peaked yesterday evening. No apparent postprocedure complications. From a cardiac standpoint okay for discharge today. -- Continue DAPT with ASA/Clopidogrel -- Change atorvastatin --> to crestor -- continue metoprolol, add back losartan (can stop hydrochlorothiazide) Plan to see back in our office in 2-3 weeks. Continued [facility] stay due to: multiple IV medications needed, home environment unsafe for pt Medications: Current Inpatient Medications Medications (Trade) Dose Ordered Sig/Sean Route Start Time Stop Time Status Last Admin Dose Admin Acetaminophen (Tylenol Tab) 650 mg Q4H PRN PO 03/19/17 19:00 04/18/17 18:59 03/21/17 03:55 650 MG Zolpidem Tartrate (Ambien Tab) 5 mg HSZ PRN PO 03/19/17 19:00 04/18/17 18:59 Aspirin (Ecotrin Tab) 81 mg QAM PO 03/20/17 09:00 04/19/17 08:59 03/22/17 08:56 81 MG Miscellaneous Information (Order Awaiting Action) 1 ea QS N/A 03/20/17 00:00 04/19/17 00:00 Vitamin B Complex (Vitamin B Complex) 1 tab QAM PO 03/20/17 09:00 04/19/17 08:59 03/22/17 08:57 1 TAB Cholecalciferol (Vitamin D Tab) 2,000 inter.unit QAM PO 03/20/17 09:00 04/19/17 08:59 03/22/17 08:56 2,000 INTER.UNIT Pantoprazole Sodium (Protonix Tab) 40 mg HS PO 03/19/17 21:00 04/18/17 20:59 03/21/17 20:24 40 MG Metoprolol Tartrate (Lopressor Tab) 25 mg BID PO 03/19/17 21:00 04/18/17 20:59 03/22/17 08:58 25 MG Albuterol (Ventolin Hfa Inhaler) 2 puffs BID INH 03/19/17 21:00 04/18/17 20:59 03/22/17 08:58 2 PUFFS Mometasone Furoate (Asmanex 220MCG Inh) 1 puff BID INH 03/20/17 21:00 04/19/17 20:59 03/22/17 08:58 1 PUFF Enoxaparin Sodium (Lovenox Inj) 40 mg QAM SQ 03/21/17 09:00 04/20/17 08:59 03/22/17 08:56 40 MG Nitroglycerin (Nitrostat Tab) 0.4 mg UD PRN SL 03/20/17 14:00 04/19/17 13:59 Ondansetron HCl (Zofran Inj) 4 mg Q6H PRN IV 03/20/17 14:00 04/19/17 13:59 Clopidogrel Bisulfate (plAVix TAB) 75 mg QAM PO 03/21/17 09:00 04/20/17 08:59 03/22/17 08:57 75 MG Morphine Sulfate (MoRPHine SULFATE INJ) 2 mg Q4 PRN IV 03/20/17 14:00 Tramadol HCl (Ultram Tab) 50 mg Q4H PRN PO 03/20/17 16:00 04/19/17 15:59 03/21/17 09:19 50 MG Rosuvastatin Calcium (Crestor Tab) 20 mg QAM PO 03/21/17 10:00 04/20/17 09:59 03/22/17 08:58 20 MG Lab Results: 03/22/17 05:10 Red Blood Count 3.97, Mean Corpuscular Volume 91.2, Mean Corpuscular Hemoglobin 31.2, Mean Corpuscular Hemoglobin Concent 34.3, Mean Platelet Volume 10.4, Neutrophils (%) (Auto) 71.3, Lymphocytes (%) (Auto) 23.0, Monocytes (%) (Auto) 4.4, Eosinophils (%) (Auto) 0.7, Basophils (%) (Auto) 0.2, Neutrophils # (Auto) 7.27, Lymphocytes # (Auto) 2.34, Monocytes # (Auto) 0.45, Eosinophils # (Auto) 0.07, Basophils # (Auto) 0.02 03/22/17 05:10 Test 03/21/17 20:11 03/22/17 05:10 Troponin I 5.580 ng/ml (0-0.045) White Blood Count 10.19 K/uL (4.8-10.8) Red Blood Count 3.97 M/uL (4.2-5.4) Hemoglobin 12.4 g/dL (12.0-16.0) Hematocrit 36.2 % (37-47) Mean Corpuscular Volume 91.2 fL (80-100) Mean Corpuscular Hemoglobin 31.2 pg (25-34) Mean Corpuscular Hemoglobin Concent 34.3 g/dl (32-36) Platelet Count 239 K/uL (130-400) Mean Platelet Volume 10.4 fL (7.4-10.4) Neutrophils (%) (Auto) 71.3 % Lymphocytes (%) (Auto) 23.0 % Monocytes (%) (Auto) 4.4 % Eosinophils (%) (Auto) 0.7 % Basophils (%) (Auto) 0.2 % Neutrophils # (Auto) 7.27 K/uL (1.4-6.5) Lymphocytes # (Auto) 2.34 K/uL (1.2-3.4) Monocytes # (Auto) 0.45 K/uL (0.11-0.59) Eosinophils # (Auto) 0.07 K/uL (0-0.5) Basophils # (Auto) 0.02 K/uL (0-0.2) RDW Standard Deviation 42.4 fL (36.4-46.3) RDW Coefficient of Variation 12.6 % (11.5-14.5) Immature Granulocyte % (Auto) 0.4 % Immature Granulocyte # (Auto) 0.04 K/uL (0.00-0.02) Activated Partial Thromboplast Time 26.8 SECONDS (21.0-31.0) Partial Thromboplastin Ratio 1.0 Anion Gap 7.0 mmol/L (3-11) Est Creatinine Clear Calc Drug Dose 107.8 ml/min Estimated GFR () 111.6 Estimated GFR (Non- 96.3 BUN/Creatinine Ratio 15.0 (10-20) Calcium Level 8.4 mg/dl (8.5-10.1) Magnesium Level 2.0 mg/dl (1.8-2.4)
[2017-03-22 11:14] VITALS: BP 134/90; PULSE 78; TEMP 37.8; O2SAT 94
[2017-03-22] MEDS ORDERED: NTRSLP4 SL (11:37)
== END 2017-03-22 11:54 | disposition home or self-care (01) | DRG 247 ==
LOC: EDBD 16:51 → C.EDB 16:52 → C.MED 19:13 → ENRESERV 19:28 → C.2E 03-20 13:34
PROVIDERS: ADMIT Hospitalist; ATTEND Family Medicine
PROC: 027034Z Dilation of Coronary Artery, One Artery with Drug-eluting Intraluminal Device, Percutaneous Approach (ICD-10-PCS; principal; 2017-03-20 11:08)
PROC: B211YZZ Fluoroscopy of Multiple Coronary Arteries using Other Contrast (ICD-10-PCS; principal; 2017-03-20 11:08)
PROC: 4A023N7 Measurement of Cardiac Sampling and Pressure, Left Heart, Percutaneous Approach (ICD-10-PCS; principal; 2017-03-20 11:08)
DX: I21.4 Non-ST elevation (NSTEMI) myocardial infarction (principal); I47.2 Ventricular tachycardia; I11.9 Hypertensive heart disease without heart failure; I25.10 Atherosclerotic heart disease of native coronary artery without angina pectoris; I77.819 Aortic ectasia, unspecified site; N95.1 Menopausal and female climacteric states; E78.00 Pure hypercholesterolemia, unspecified; J45.909 Unspecified asthma, uncomplicated; K21.9 Gastro-esophageal reflux disease without esophagitis; E78.5 Hyperlipidemia, unspecified; F17.210 Nicotine dependence, cigarettes, uncomplicated; E66.9 Obesity, unspecified; Z51.81 Encounter for therapeutic drug level monitoring; Z79.899 Other long term (current) drug therapy; Z79.82 Long term (current) use of aspirin; Z68.34 Body mass index [BMI] 34.0-34.9, adult; Z82.49 Family history of ischemic heart disease and other diseases of the circulatory system

== ENCOUNTER → 2017-04-08 | Outpatient (CLI) | payer OTHER ==
[~2017-04-08] MED LIST changes: -ESTR1DIS TD; -LORA-741 PO
[2017-04-08 15:59] LABS: HEMATOCRIT 39.9 % (37-47); MEAN CELL VOLUME 90.3 fL (80-100); MEAN CORPUSCULAR HEMOGLOBIN 30.8 pg (25-34); MEAN CORPUSCULAR HGB CONC 34.1 g/dl (32-36); MEAN PLATELET VOLUME 11.4 fL (7.4-10.4); PLATELET COUNT 234 K/uL (130-400); RED BLOOD COUNT 4.42 M/uL (4.2-5.4); WHITE BLOOD COUNT 6.72 K/uL (4.8-10.8)
[2017-04-08 16:13] LABS: BLOOD UREA NITROGEN 17 mg/dl (7-18); BUN/CREATININE RATIO 17.5 (10-20); CALCIUM 9.3 mg/dl (8.5-10.1); CARBON DIOXIDE 29 mmol/L (21-32); CHLORIDE 106 mmol/L (98-107); CREATININE 0.95 mg/dl (0.60-1.20); GLUCOSE 93 mg/dl (70-99); SODIUM 139 mmol/L (136-145); TOTAL IRON BINDING CAPACITY 323 mcg/dl (250-450)
== END | disposition home or self-care (01) ==
LOC: C.LAB1850 13:51
PROVIDERS: ATTEND Internal Medicine Interventional Cardiology
DX: D64.9 Anemia, unspecified (principal); E78.5 Hyperlipidemia, unspecified; I25.10 Atherosclerotic heart disease of native coronary artery without angina pectoris

== ENCOUNTER → 2017-09-05 | Outpatient (CLI) | payer OTHER ==
[~2017-09-05] MED LIST changes: +LORA-741 PO; -MOME16.7 INH; -VNTHFA/IN INH
[2017-09-05 10:16] LABS: BASO % 0.4 %; BASO ABS # 0.02 K/uL (0-0.2); EOS ABS # 0.19 K/uL (0-0.5); HEMATOCRIT 39.6 % (37-47); HEMOGLOBIN 13.5 g/dL (12.0-16.0); IG# 0.01 K/uL (0.00-0.02); LYMPH % 32.6 %; LYMPH ABS # 1.55 K/uL (1.2-3.4); MEAN CELL VOLUME 89.8 fL (80-100); MEAN CORPUSCULAR HEMOGLOBIN 30.6 pg (25-34); MEAN CORPUSCULAR HGB CONC 34.1 g/dl (32-36); MEAN PLATELET VOLUME 10.9 fL (7.4-10.4); MONO % 4.8 %; MONO ABS # 0.23 K/uL (0.11-0.59); NEUT ABS # 2.76 K/uL (1.4-6.5); PLATELET COUNT 193 K/uL (130-400); RED CELL DISTRIBUTION WIDTH CV 12.7 % (11.5-14.5); RED CELL DISTRIBUTION WIDTH SD 41.4 fL (36.4-46.3); WHITE BLOOD COUNT 4.76 K/uL (4.8-10.8)
[2017-09-05 10:50] LABS: ALT/SGPT 28 U/L (12-78); AST/SGOT 15 U/L (15-37); BLOOD UREA NITROGEN 15 mg/dl (7-18); CALCIUM 8.9 mg/dl (8.5-10.1); CARBON DIOXIDE 27 mmol/L (21-32); CREATININE 0.76 mg/dl (0.60-1.20); GLUCOSE 96 mg/dl (70-99); POTASSIUM 4.1 mmol/L (3.5-5.1); SODIUM 139 mmol/L (136-145)
[2017-09-05 11:01] LABS: ALKALINE PHOSPHATASE 64 U/L (45-117); CHOLESTEROL 129 mg/dl (0-200); LDL CHOLESTEROL CALCULATED 47 mg/dl; TOTAL PROTEIN 7.2 gm/dl (6.4-8.2)
== END ==
LOC: C.LAB1850 09:06
PROVIDERS: ATTEND Internal Medicine Interventional Cardiology
DX: J45.909 Unspecified asthma, uncomplicated (principal); I10 Essential (primary) hypertension; I21.9 Acute myocardial infarction, unspecified; I25.10 Atherosclerotic heart disease of native coronary artery without angina pectoris; E78.5 Hyperlipidemia, unspecified

== ENCOUNTER → 2017-11-24 | Outpatient (CLI) | payer OTHER ==
--- NOTE | 2017-11-25 07:47 | MAMMOGRAPHY REPORT ---
BILATERAL DIGITAL SCREENING MAMMOGRAM TOMOSYNTHESIS WITH CAD: 11/24/2017 CLINICAL HISTORY: Routine screening. Patient has no complaints. TECHNIQUE: Breast tomosynthesis in addition to standard 2D mammography was performed. Current study was also evaluated with a Computer Aided Detection (CAD) system. COMPARISON: Comparison is made to exams dated: 11/18/2016 mammogram, 11/13/2015 mammogram, 11/07/2014 ma mmogram, 11/01/2013 mammogram, 10/26/2012 mammogram, and 10/21/2011 mammogram - [facility]. BREAST COMPOSITION: There are scattered areas of fibroglandular density in both breasts. FINDINGS: No suspicious masses, calcifications, or areas of architectural distortion are noted in ei ther breast. There has been no significant interval change compared to prior exams. IMPRESSION: ACR BI-RADS CATEGORY 1: NEGATIVE There is no mammographic evidence of malignancy. A 1 year screening mammogram is recommended. The pa tient will receive written notification of the results. Approximately 10% of breast cancers are not detected with mammography. A negative mammographic report should not delay biopsy if a clinically suggestive mass is present. Isabela Way M.D. ah/:11/24/2017 12:43:49 Client Program Manager: Vandana HIDALGO([place])([place])([place]), [facility] letter sent: Normal 1/2 BI-RADS Code: ACR BI-RADS Category 1: Negative
== END | disposition home or self-care (01) ==
LOC: C.MAMM 12:09
PROVIDERS: ATTEND Internal Medicine Pulmonary Disease
DX: Z12.31 Encounter for screening mammogram for malignant neoplasm of breast (principal)

== ENCOUNTER 2021-01-17 07:19 | Inpatient (IN) ==
[2021-01-17] MEDS ORDERED: KETOROLAC TROMETHAMINE 15 MG/ML VIAL IV ONE (07:34)
[2021-01-17] MEDS ORDERED: MoRPHine SULFATE 10 MG/ML CARP/VIAL IV STA (07:34)
[2021-01-17] MEDS ORDERED: ONDANSETRON INJ 2 MG/ML 2 ML VIAL IV STA ×2 (07:34→10:13)
[2021-01-17] MEDS ORDERED: SODIUM CHLORIDE 0.9% 1000ML 1,000 ML IV ONE ×2 (07:34→09:00)
--- NOTE | 2021-01-17 07:37 | Emergency Department Note ---
Impression & Plan Left ureteral stone, Renal colic, Acute UTI ED Provider Note NAME: ELIDA RAND AGE: 65 SEX: F : 1955 ARRIVES VIA: Walk-In INFORMANT: Patient ED PROVIDER(S): Laith Hernandez DO CHIEF COMPLAINT: Left flank pain HPI: Patient is a 65-year-old female who presents to the ER for left flank pain. Started around 5 AM this morning. She had this earlier in the week and it resolved. Pain is located in the left flank and radiates to the left lower quadrant. Associate with nausea and vomiting. Had a bowel movement this morning. Denies any dysuria, urgency, or frequency. No hematuria. No chest pain or shortness of breath. No weakness or numbness in the arms or legs. Does have a history of sciatica and that she had that yesterday but that has now resolved. No other exacerbating or remitting factors. ROS: See above HPI for pertinent positives & negatives. A total of 10 systems reviewed and were otherwise negative. PAST MEDICAL HISTORY:See Below PAST SURGICAL HISTORY:See Below FAMILY HISTORY:See Below SOCIAL HISTORY:See Below HOME MEDICATIONS:See Below ALLERGIES:See Below VITALS:See Below PHYSICAL EXAMINATION: GENERAL: Sitting up in bed, alert, moderate distress holding left flank EYE EXAM: normal conjunctiva. OROPHARYNX: mucous membranes are moist NECK: supple, no nuchal rigidity, no adenopathy, non-tender LUNGS: Clear to auscultation. Normal chest wall mechanics HEART: no murmurs, S1 normal and S2 normal ABDOMEN: abdomen soft, non-tender, normo-active bowel sounds, no masses, no rebound or guarding. BACK: Back is symmetrical on inspection and there is no deformity, no midline tenderness, no CVA tenderness. UPPER EXTREMITIES: upper extremities are grossly normal. LOWER EXTREMITIES: No pitting edema. NEURO EXAM: Normal sensorium, cranial nerves II-XII grossly intact, normal speech, no gross weakness of arms, no gross weakness of legs. MEDICAL DECISION MAKING: Patient is a 65-year-old female who presents ER for severe left flank pain. IV was established blood work was obtained. She was given IV fluids, Toradol, Zofran and morphine. Labs showed no significant leukocytosis or anemia. BMP with slightly elevated chloride. LFTs bilirubin was unremarkable. Lipase slightly elevated at 500. UA consistent with UTI with nitrites, whites, leuks and +4 bacteria. Fajardo through exam patient did have rigors. This was after receiving morphine and was uncertain whether this was secondary to infection versus morphine. It did improve. She was given some Benadryl. She was hypothermic and a little tachycardic. Case was discussed with urology after the CT showed a left ureteral stone. Urology agrees to follow but will not take her emergently to the OR. Discussed with the hospitalist for further evaluation. Triage Nursing notes reviewed. Limited review of prior medical records performed Vital Signs: reviewed and remarkable for HTN Differential diagnosis: Differential diagnoses includes but is not limited to gastritis, peptic ulcer disease, GERD, gallbladder disease, pancreatitis, small bowel obstruction, acute coronary syndrome, pericarditis, ischemic bowel, irritable bowel disease, irritable bowel syndrome, appendicitis, diverticulitis, malignancy, hernia, urinary tract infection, torsion, [/ectopic (if female)], perforation, trauma, infectious. ER treatment provided: See below Diagnostics interpreted by me: ECG: none Cardiac Monitoring: An order was placed for continuous cardiac monitoring. The monitor shows a rate of 70 with sinus rhythm. Laboratory studies: As stated above and show below. Imaging studies: CT abdomen pelvis showed a 7 mm left proximal ureteral stone Consultation(s): Discussed with Mike from not any hospitalist Discussed with urology Dr. Alli Caldera as stated above Procedures: none Critical Care: None Past Med/Surg History Medical History Anemia Arthritis Ascending aortic aneurysm Asthma CAD (coronary artery disease) Generalized osteoarthritis of hand HTN (hypertension) Hyperlipidemia Lyme disease Myalgia Obesity REJI (obstructive sleep apnea) Unstable angina Surgical History H/O heart artery stent History of by dilation and evacuation History of colonoscopy (2008) History of tonsillectomy and adenoidectomy History of total abdominal hysterectomy History of tubal ligation History of unilateral salpingectomy Left side and right side Family History Other Asthma Social History (Updated 01/17/21 @ 12:01 by FATUMA Cortez) Smoking Status: Never smoker Hx Alcohol Use: Yes Alcohol type: wine Alcohol type Comment: 2-3 glasses of wine per night Alcohol Intake Frequency Comment: nightly Preferred Language: Yakut marital status: Current Living Situation: Spouse Feels Safe at Home: Yes Allergies Allergies Allergy/AdvReac Type Severity Reaction Status Date / Time Iodinated Contrast Media Allergy Severe ANAPHYLAXIS Verified 01/17/21 08:47 pine nut Allergy Intermediate "ITCHY Verified 01/17/21 08:47 MOUTH" walnut Allergy Intermediate "ITCHY Verified 01/17/21 08:47 MOUTH" SEVERAL FRUITS Allergy Intermediate "ITCHY Uncoded 01/17/21 08:47 MOUTH". Home Meds Home Medications Medication Instructions Recorded Confirmed cholecalciferol (vitamin D3) 25 1,000 units PO QAM 02/26/19 01/17/21 mcg (1,000 unit) tablet cinnamon bark 500 mg capsule 500 mg PO QAM 02/26/19 01/17/21 aspirin 81 mg tablet,delayed 81 mg PO QAM tab 03/20/19 01/17/21 release nitroglycerin 0.4 mg sublingual 0.4 mg SL Q5M PRN #30 tab 03/20/19 01/17/21 tablet rosuvastatin 20 mg tablet 20 mg PO QAM 12/04/20 01/17/21 clopidogrel 75 mg PO QAM 01/17/21 01/17/21 coQ10 (ubiquinol) 200 mg PO PM 01/17/21 01/17/21 fluticasone propionate 2 spray INTRANASAL DAILY PRN 01/17/21 01/17/21 lactobacillus combination no.4 3,000 mmu cells PO PM 01/17/21 01/17/21 [Probiotic] losartan 50 mg PO PM 01/17/21 01/17/21 omeprazole 20 mg PO PM 01/17/21 01/17/21 vitamin B complex 1 tab PO PM 01/17/21 01/17/21 Previous Rx's Medication Instructions Recorded albuterol sulfate 90 mcg/actuation 2 puffs INH Q4H PRN #1 inhaler 09/03/19 aerosol inhaler phenazopyridine 100 mg tablet 100 mg PO TID PRN #30 tab 01/10/20 metoprolol tartrate 25 mg tablet 25 mg PO BID #180 tab 10/23/20 Results & Data (ED) Vital Signs Vital Signs - 24 hr 01/17/21 07:22 01/17/21 08:10 01/17/21 08:30 Temperature 35.7 C L Temperature Source Temporal Artery Scan Pulse Rate 66 69 Pulse Rate from SpO2 Sensor 69 Respiratory Rate 20 17 Respiratory Effort / Characteristics Non-Labored Spontaneous Respiratory Depth Normal Respiratory Pattern Regular Blood Pressure 196/89 H 159/96 H Blood Pressure Mean 124 117 Pulse Oximetry 97 98 94 Oxygen Delivery Method Room Air Room Air Oxymask Oxygen Flow Rate 2 Sepsis Recent Fever Within 48 Hours No Sepsis New/Unexplained Change in Mental Status No Sepsis Action Taken by Nursing No Action Required 01/17/21 09:01 01/17/21 09:16 01/17/21 09:31 Temperature Temperature Source Pulse Rate 105 H 109 H 93 H Pulse Rate from SpO2 Sensor 98 H 110 H 91 H Respiratory Rate 24 22 22 Respiratory Effort / Characteristics Respiratory Depth Respiratory Pattern Blood Pressure 162/81 H 111/86 160/89 H Blood Pressure Mean 108 94 112 Pulse Oximetry 92 96 95 Oxygen Delivery Method Oxymask Oxymask Oxymask Oxygen Flow Rate 2 2 2 Sepsis Recent Fever Within 48 Hours Sepsis New/Unexplained Change in Mental Status Sepsis Action Taken by Nursing 01/17/21 10:00 01/17/21 10:30 01/17/21 11:00 Temperature Temperature Source Pulse Rate 101 H 103 H 104 H Pulse Rate from SpO2 Sensor 102 H 103 H 104 H Respiratory Rate 21 25 H 18 Respiratory Effort / Characteristics Respiratory Depth Respiratory Pattern Blood Pressure 145/90 H 172/81 H 154/84 H Blood Pressure Mean 108 111 107 Pulse Oximetry 95 93 94 Oxygen Delivery Method Oxygen Flow Rate Sepsis Recent Fever Within 48 Hours Sepsis New/Unexplained Change in Mental Status Sepsis Action Taken by Nursing Laboratory Data Result diagrams: 01/17/21 07:53 01/17/21 07:53 Lab Results 01/17/21 01/17/21 01/17/21 Range/Units 07:53 07:53 07:53 WBC 8.84 (4.8-10.8) K/uL RBC 4.25 (4.2-5.4) M/uL Hgb 13.1 (12.0-16.0) g/dL Hct 39.0 (37-47) % MCV 91.8 (80-100) fL MCH 30.8 (25-34) pg MCHC 33.6 (32-36) g/dL RDW Std Deviation 42.9 (36.4-46.3) fL RDW Coeff of Priscilla 12.7 (11.5-14.5) % Plt Count 267 (130-400) K/uL MPV 10.2 (7.4-10.4) fL Immature Gran % (Auto) 0.2 % Neut % (Auto) 73.7 % Lymph % (Auto) 19.0 % Creek % (Auto) 4.0 % Eos % (Auto) 2.9 % Baso % (Auto) 0.2 % Neut # (Auto) 6.51 H (1.4-6.5) K/uL Lymph # (Auto) 1.68 (1.2-3.4) K/uL Creek # (Auto) 0.35 (0.11-0.59) K/uL Eos # (Auto) 0.26 (0-0.5) K/uL Baso # (Auto) 0.02 (0-0.2) K/uL Immature Gran # (Auto) 0.02 (0.00-0.02) K/uL Sodium 141 (136-145) mmol/L Potassium 3.9 (3.5-5.1) mmol/L Chloride 109 H (98-107) mmol/L Carbon Dioxide 23 (21-32) mmol/L Anion Gap 9.0 (3-11) BUN 16 (7-18) mg/dl Creatinine 1.01 (0.6-1.2) mg/dl Est Cr Clr Drug Dosing 70.6 ml/min Est GFR ( Amer) 67.7 ml/min Est GFR (Non-Af Amer) 58.4 ml/min BUN/Creatinine Ratio 16.1 (10-20) Glucose 143 H (70-99) mg/dl Calcium 9.6 (8.5-10.1) mg/dl Total Bilirubin 0.7 (0.2-1) mg/dl AST 15 (15-37) U/L ALT 23 (12-78) U/L Alkaline Phosphatase 72 (45-117) U/L Total Protein 7.7 (6.4-8.2) gm/dl Albumin 4.0 (3.4-5.0) gm/dl Globulin 3.7 (2.5-4.0) gm/dl Albumin/Globulin Ratio 1.1 (0.9-2) Lipase 497 H (73-393) U/L Urine Color Dark Yellow Urine Appearance Cloudy A (Clear) Urine pH 5.0 (4.5-7.5) Ur Specific [place] 1.015 (1.000-1.030) Urine Protein 1+ H (Negative) Urine Glucose (UA) Negative (Negative) Urine Ketones Negative (Negative) Urine Blood 2+ H (Negative) Urine Nitrite Negative (Negative) Urine Bilirubin Negative (Negative) Urine Urobilinogen Negative (Negative) Ur Leukocyte Esterase 3+ H (Negative) Urine WBC (Auto) >30 H (0-5) /hpf Urine RBC (Auto) 5-10 H (0-4) /hpf U Hyaline Cast (Auto) 1-5 (0-5) /lpf U Epithel Cells (Auto) >30 H (0-5) /lpf Urine Bacteria (Auto) 4+ H (Negative) COVID-19 Eval Order SARS-CoV-2 (PCR) (Negative) 01/17/21 01/17/21 01/17/21 Range/Units 08:54 08:54 10:11 WBC (4.8-10.8) K/uL RBC (4.2-5.4) M/uL Hgb (12.0-16.0) g/dL Hct (37-47) % MCV (80-100) fL MCH (25-34) pg MCHC (32-36) g/dL RDW Std Deviation (36.4-46.3) fL RDW Coeff of Priscilla (11.5-14.5) % Plt Count (130-400) K/uL MPV (7.4-10.4) fL Immature Gran % (Auto) % Neut % (Auto) % Lymph % (Auto) % Creek % (Auto) % Eos % (Auto) % Baso % (Auto) % Neut # (Auto) (1.4-6.5) K/uL Lymph # (Auto) (1.2-3.4) K/uL Creek # (Auto) (0.11-0.59) K/uL Eos # (Auto) (0-0.5) K/uL Baso # (Auto) (0-0.2) K/uL Immature Gran # (Auto) (0.00-0.02) K/uL Sodium (136-145) mmol/L Potassium (3.5-5.1) mmol/L Chloride (98-107) mmol/L Carbon Dioxide (21-32) mmol/L Anion Gap (3-11) BUN (7-18) mg/dl Creatinine (0.6-1.2) mg/dl Est Cr Clr Drug Dosing ml/min Est GFR ( Amer) ml/min Est GFR (Non-Af Amer) ml/min BUN/Creatinine Ratio (10-20) Glucose (70-99) mg/dl Calcium (8.5-10.1) mg/dl Total Bilirubin (0.2-1) mg/dl AST (15-37) U/L ALT (12-78) U/L Alkaline Phosphatase (45-117) U/L Total Protein (6.4-8.2) gm/dl Albumin (3.4-5.0) gm/dl Globulin (2.5-4.0) gm/dl Albumin/Globulin Ratio (0.9-2) Lipase (73-393) U/L Urine Color Yellow Urine Appearance Clear (Clear) Urine pH 6.0 (4.5-7.5) Ur Specific [place] 1.010 (1.000-1.030) Urine Protein Negative (Negative) Urine Glucose (UA) Negative (Negative) Urine Ketones Negative (Negative) Urine Blood Trace H (Negative) Urine Nitrite Positive A (Negative) Urine Bilirubin Negative (Negative) Urine Urobilinogen Negative (Negative) Ur Leukocyte Esterase 2+ H (Negative) Urine WBC (Auto) >30 H (0-5) /hpf Urine RBC (Auto) 0-4 (0-4) /hpf U Hyaline Cast (Auto) 1-5 (0-5) /lpf U Epithel Cells (Auto) 5-10 H (0-5) /lpf Urine Bacteria (Auto) 4+ H (Negative) COVID-19 Eval Order Covid19 at [facility] SARS-CoV-2 (PCR) NEGATIVE (Negative) Administered Medications Discontinued Medications Acetaminophen (Acetaminophen 1000 Mg/100 Ml Iv) 1,000 mg IV NOW STA Stop: 01/17/21 11:33 Last Admin: 01/17/21 11:50 Dose: 1,000 mg Documented by: [id number] Diphenhydramine HCl (Diphenhydramine 50 Mg/Ml Vial) 25 mg IV NOW STA Stop: 01/17/21 09:18 Last Admin: 01/17/21 09:22 Dose: 25 mg Documented by: [id number] Diphenhydramine HCl (Diphenhydramine 50 Mg/Ml Vial) 25 mg IV NOW STA Stop: 01/17/21 09:19 Last Admin: 01/17/21 09:19 Dose: Not Given Documented by: [id number] Famotidine (Famotidine 20mg/5ml Iv Push) 20 mg IV ONE STA Stop: 01/17/21 11:35 Last Admin: 01/17/21 11:51 Dose: 20 mg Documented by: [id number] Sodium Chloride (Nss 1000ml) 1,000 mls @ 999 mls/hr IV .Q1H1M ONE Stop: 01/17/21 08:34 Last Infusion: 01/17/21 09:00 Dose: 0 mls/hr Documented by: [id number] Admin: 01/17/21 07:59 Dose: 999 mls/hr Documented by: [id number] Sodium Chloride (Nss 1000ml) 1,000 mls @ 999 mls/hr IV .Q1H1M ONE Stop: 01/17/21 10:00 Last Infusion: 01/17/21 10:30 Dose: 0 mls/hr Documented by: [id number] Admin: 01/17/21 09:31 Dose: 999 mls/hr Documented by: [id number] Ceftriaxone Sodium (Rocephin) 1,000 mg in 50 mls @ 100 mls/hr IV NOW STA Stop: 01/17/21 11:31 Last Infusion: 01/17/21 11:37 Dose: 0 mls/hr Documented by: [id number] Admin: 01/17/21 11:07 Dose: 100 mls/hr Documented by: [id number] Ketorolac Tromethamine (Ketorolac Tromethamine 15 Mg/Ml Vial) 15 mg IV NOW ONE Stop: 01/17/21 07:35 Last Admin: 01/17/21 07:58 Dose: 15 mg Documented by: [id number] Morphine Sulfate (Morphine Sulfate 10 Mg/Ml Carp/Vial) 6 mg IV NOW STA Stop: 01/17/21 07:35 Last Admin: 01/17/21 07:58 Dose: 6 mg Documented by: [id number] Ondansetron HCl (Ondansetron Inj 2 Mg/Ml 2 Ml Vial) 4 mg IV NOW STA Stop: 01/17/21 07:35 Last Admin: 01/17/21 07:58 Dose: 4 mg Documented by: [id number] Ondansetron HCl (Ondansetron Inj 2 Mg/Ml 2 Ml Vial) 4 mg IV NOW STA Stop: 01/17/21 10:14 Last Admin: 01/17/21 10:19 Dose: 4 mg Documented by: [id number] Imaging Data Radiologist's Impression: Abdomen/Pelvis CT 01/17/21 07:34 CT SCAN OF THE ABDOMEN AND PELVIS WITHOUT IV CONTRAST CLINICAL HISTORY: Left flank pain. COMPARISON STUDY: No priors. TECHNIQUE: CT scan of the abdomen and pelvis is performed from the lung bases to the proximal femora. Images are reviewed in the axial, sagittal, and coronal planes. IV contrast was not administered for this examination. A dose lowering technique was utilized adhering to the principles of ALARA. CT DOSE: 960.17 mGy.cm FINDINGS: Lung bases: The heart is normal in size and without pericardial effusion. There are coronary artery calcifications. The lung bases are clear noting dependent atelectasis. There is a small hiatal hernia. Liver: The unenhanced liver is normal in size, contour, and attenuation. There is no intrahepatic biliary ductal dilatation. Gallbladder: A calcified gallstone measures at least 2.7 cm. There is no CT evidence of acute cholecystitis. Spleen: Normal in size and attenuation. Pancreas: Unremarkable. Adrenal glands: Unremarkable. Kidneys: The unenhanced kidneys are normal in size. There is a 7 mm obstructing calculus in the left proximal ureter at the level of L4, which is best seen on image #210. This causes moderate left hydronephrosis. There is associated left- sided perinephric stranding. No additional calculi are identified in either kidney. There is no right-sided hydronephrosis. There is no evidence of contour deforming renal mass lesion. A circumaortic left renal vein is incidentally noted. Abdominal vasculature: The abdominal aorta is normal in course and caliber noting mild atherosclerotic calcification. Bowel: There is moderate diverticulosis of the left colon without CT evidence of acute diverticulitis. No bowel obstruction is seen. The appendix is well- visualized and normal. Peritoneum: There is no intraperitoneal free air or abdominal ascites. There is a fat-containing umbilical hernia. Lymphadenopathy: None. Pelvic viscera: The bladder is partially decompressed and appears circumferentially thick walled. The uterus is surgically absent. No adnexal lesion is seen. There is a fat-containing right inguinal hernia. Skeletal structures: The skeletal structures are osteopenic. There is mild to moderate lumbosacral spondylosis. Mild sclerotic change is noted in the sacroiliac joints and pubic symphysis. No lytic or blastic lesions are seen. IMPRESSION: 1. There is a 7 mm obstructing calculus in the left proximal ureter. This causes moderate left hydronephrosis. 2. No additional calculi are identified in either kidney. 3. The bladder wall appears circumferentially thickened. Correlate with urinalysis. 4. Cholelithiasis. 5. Colonic diverticulosis without CT evidence of acute diverticulitis. ACT 112: Negative or not required by law. Electronically signed by: Jose Guadalupe Irene M.D. 01/17/2021 8:43 AM Discharge Plan Visit Data Chief Complaint: Back Injury/Pain Stated Complaint: BACK PAIN, STOMACH PAIN ON L SIDE ED Provider: Laith Hernandez Discharge Problem: Left ureteral stone, Renal colic, Acute UTI Forms Stand Alone Forms: [facility] Prescriptions Prescriptions: No Action aspirin 81 mg tablet,delayed release (DR/EC) 81 mg PO QAM RF: 0 nitroglycerin 0.4 mg tablet, sublingual 0.4 mg SL Q5M PRN (Reason: Chest Pain) Qty: 30 RF: 0 albuterol sulfate [Ventolin HFA] 90 mcg/actuation HFA aerosol inhaler 2 puffs INH Q4H PRN (Reason: Shortness Of Breath) Qty: 1 RF: 11 phenazopyridine [Pyridium] 100 mg tablet 100 mg PO TID PRN (Reason: pain) Qty: 30 RF: 0 rosuvastatin [Crestor] 20 mg tablet 20 mg PO QAM RF: 0 cinnamon bark [Cinnamon] 500 mg capsule 500 mg PO QAM RF: 0 cholecalciferol (vitamin D3) 1,000 unit (25 mcg) tablet 1,000 units PO QAM RF: 0 metoprolol tartrate 25 mg tablet 25 mg PO BID Qty: 180 RF: 3 losartan 50 mg tablet 50 mg PO PM RF: 0 clopidogrel 75 mg tablet 75 mg PO QAM RF: 0 omeprazole 20 mg capsule,delayed release(DR/EC) 20 mg PO PM RF: 0 vitamin B complex Tablet 1 tab PO PM RF: 0 fluticasone propionate 50 mcg/actuation spray,suspension 2 spray intranasal DAILY PRN (Reason: seasonal allergies) RF: 0 coQ10 (ubiquinol) 200 mg Capsule 200 mg PO PM RF: 0 Probiotic 3 billion cell Capsule 3,000 mmu cells PO PM RF: 0
[2021-01-17 08:05] LABS: Basophils # (auto) 0.02 K/uL (0-0.2); Basophils % (auto) 0.2 %; Eosinophils # (auto) 0.26 K/uL (0-0.5); Eosinophils % (auto) 2.9 %; Hemoglobin 13.1 g/dL (12.0-16.0); Immature Granulocytes # (auto) 0.02 K/uL (0.00-0.02); Immature Granulocytes % (auto) 0.2 %; Lymphocytes # (auto) 1.68 K/uL (1.2-3.4); Mean Corpuscular Hemoglobin 30.8 pg (25-34); Mean Corpuscular Hgb Conc 33.6 g/dL (32-36); Mean Corpuscular Volume 91.8 fL (80-100); Mean Platelet Volume 10.2 fL (7.4-10.4); Monocytes # (auto) 0.35 K/uL (0.11-0.59); Neutrophils # (auto) 6.51 K/uL (1.4-6.5); Neutrophils % (auto) 73.7 %; Platelet Count 267 K/uL (130-400); RDW Coefficient of Variation 12.7 % (11.5-14.5); RDW Standard Deviation 42.9 fL (36.4-46.3); Red Blood Count 4.25 M/uL (4.2-5.4); White Blood Count 8.84 K/uL (4.8-10.8)
[2021-01-17 08:23] LABS: BUN Creatinine Ratio 16.1 (10-20); Calcium 9.6 mg/dl (8.5-10.1); Creatinine Clr Calc Pharmacy 70.6 ml/min; Est GFR (African American) 67.7 ml/min; Est GFR (Non-African American) 58.4 ml/min; Potassium 3.9 mmol/L (3.5-5.1)
[2021-01-17 08:26] LABS: Albumin Globulin Ratio 1.1 (0.9-2); Bilirubin,Total 0.7 mg/dl (0.2-1); Globulin 3.7 gm/dl (2.5-4.0); Total Protein 7.7 gm/dl (6.4-8.2)
[2021-01-17 08:37] LABS: Appearance Urine Cloudy (Clear); Bacteria Urine Automated 4+ (Negative); Bilirubin Urine Negative (Negative); Blood Urine 2+ (Negative); Color Urine Dark Yellow; Epithelial Cell Urine Auto >30 /lpf (0-5); Glucose Urine UA Negative (Negative); Ketones Urine Negative (Negative); Leukocyte Esterase Urine 3+ (Negative); Nitrite Urine Negative (Negative); Protein Urine 1+ (Negative); Specific Gravity Urine 1.015 (1.000-1.030); Urobilinogen Urine Negative (Negative); WBC Urine Automated >30 /hpf (0-5)
--- NOTE | 2021-01-17 08:44 | CT Scan Report ---
CT SCAN OF THE ABDOMEN AND PELVIS WITHOUT IV CONTRAST CLINICAL HISTORY: Left flank pain. COMPARISON STUDY: No priors. TECHNIQUE: CT scan of the abdomen and pelvis is performed from the lung bases to the proximal femora. Images are reviewed in the axial, sagittal, and coronal planes. IV contrast was not administered for this examination. A dose lowering technique was utilized adhering to the principles of ALARA. CT DOSE: 960.17 mGy.cm FINDINGS: Lung bases: The heart is normal in size and without pericardial effusion. There are coronary artery c alcifications. The lung bases are clear noting dependent atelectasis. There is a small hiatal hernia. Liver: The unenhanced liver is normal in size, contour, and attenuation. There is no intrahepatic tamiko iary ductal dilatation. Gallbladder: A calcified gallstone measures at least 2.7 cm. There is no CT evidence of acute cholecy stitis. Spleen: Normal in size and attenuation. Pancreas: Unremarkable. Adrenal glands: Unremarkable. Kidneys: The unenhanced kidneys are normal in size. There is a 7 mm obstructing calculus in the left proximal ureter at the level of L4, which is best seen on image #210. This causes moderate left hydro nephrosis. There is associated left-sided perinephric stranding. No additional calculi are identified in either kidney. There is no right-sided hydronephrosis. There is no evidence of contour deforming renal mass lesion. A circumaortic left renal vein is incidentally noted. Abdominal vasculature: The abdominal aorta is normal in course and caliber noting mild atheroscleroti c calcification. Bowel: There is moderate diverticulosis of the left colon without CT evidence of acute diverticulitis . No bowel obstruction is seen. The appendix is well-visualized and normal. Peritoneum: There is no intraperitoneal free air or abdominal ascites. There is a fat-containing umbi lical hernia. Lymphadenopathy: None. Pelvic viscera: The bladder is partially decompressed and appears circumferentially thick walled. The uterus is surgically absent. No adnexal lesion is seen. There is a fat-containing right inguinal her gail. Skeletal structures: The skeletal structures are osteopenic. There is mild to moderate lumbosacral sp ondylosis. Mild sclerotic change is noted in the sacroiliac joints and pubic symphysis. No lytic or b lastic lesions are seen. IMPRESSION: 1. There is a 7 mm obstructing calculus in the left proximal ureter. This causes moderate left hydron ephrosis. 2. No additional calculi are identified in either kidney. 3. The bladder wall appears circumferentially thickened. Correlate with urinalysis. 4. Cholelithiasis. 5. Colonic diverticulosis without CT evidence of acute diverticulitis. ACT 112: Negative or not required by law. Electronically signed by: Jose Guadalupe Irene M.D. 01/17/2021 8:43 AM
[2021-01-17] MEDS ORDERED: diphenhydrAMINE 50 MG/ML VIAL IV STA ×2 (09:17→09:18)
[2021-01-17 10:20] LABS: Appearance Urine Clear (Clear); Bacteria Urine Automated 4+ (Negative); Bilirubin Urine Negative (Negative); Blood Urine Trace (Negative); Color Urine Yellow; Glucose Urine UA Negative (Negative); Ketones Urine Negative (Negative); Leukocyte Esterase Urine 2+ (Negative); Nitrite Urine Positive (Negative); Protein Urine Negative (Negative); RBC Urine Automated 0-4 /hpf (0-4); Urobilinogen Urine Negative (Negative); WBC Urine Automated >30 /hpf (0-5)
[2021-01-17] MEDS ORDERED: cefTRIAXone SODIUM 1,000 MG/50 ML BAG IV STA (11:02)
[2021-01-17] MEDS ORDERED: ACETAMINOPHEN 1000 MG/100 ML IV IV STA (11:32)
[2021-01-17] MEDS ORDERED: FAMOTIDINE 20MG/5ML IV PUSH IV STA (11:34)
--- NOTE | 2021-01-17 12:25 | History & Physical Report ---
Date of Service January 17, 2021 Assessment & Plan (1) Renal stone: 7 mm obstructing calculus in the left proximal ureter at the level of L4, which is best seen on image #210. This causes moderate left hydronephrosis. There is associated left-sided perinephric stranding. No additional calculi are identified in either kidney - Associated with rigors and vomiting - Pain controlled with Toradol and opioid- will change her opioid to hydromorphone as ? response to morphine - Tylenol IV, Toradol 10mg IV q6 PRN, Percocet 5/325 q6 prn, hydromorphone 0.5mg IV q4 - LR at 100 - Strain urine - Urology consult placed - NPO (2) UTI (urinary tract infection): Uncomplicated - ? association with renal stone - Continue Rocephin 1GM q12 - As above (3) CAD (coronary artery disease): Stable no chest pain or dyspnea with activity. Patient was actually going out to golf this morning - Hold Plavix for intervention - Continue ASA - Continue Metoprolol 25 BID - Continue Losartan 50 mg PO - Continue Rosuvastatin 20mg - ECHO 2019 EF 55-60% - Ascending Aortic dilation/aneurism 4.1 cm - Coq10 (4) Mild ascending aorta dilatation: As above- BP control - stable with no change (5) HTN (hypertension): As above (6) Hyperlipidemia: As above (7) Arthritis: Chronic - Continue Tylenol (8) REJI (obstructive sleep apnea): CPAP 13 cm H20 (9) Allergic rhinitis: Continue albuterol Continue Fluticasone Asthma controlled (10) Esophageal reflux: Can change back to omeprazole PO in morning - Famotidine IV BID for H2 effects with ? morphine reaction History of Present Illness Primary Care Provider: Nasir Araiza MD 65 YOF with past medical history of: HTN, HLD, CAD with PCI ANGEL to LAD (2017, remains on DAPT), COPD, Ascending Aortic Aneurysm, obesity, Lyme disease in 2020 associated with myalgias and pond's palsy with lower extremity weakness. She drinks 2-3 glasses of wine per night. Patient comes in today for acute onset of sharp stabbing pain to her left flank and hip area this morning around 0530. This was associated with nausea and vomiting. She had episodes of feeling warm this morning as well. On the way to the EMD she also had some dry heaves and small amount of vomiting. IN the EMD she was given Toradol and morphine. Following the Morphine patient had some rigors with teeth chattering; as concern for reaction to the morphine EMD gave her Benadryl. Patient had a CT scan of her abdomen done and routine labs to include a urine microscopy/culture. CT scan was notable for 7mm left obstructing stone in the mid ureter with mild hydronephrosis, her Urine was positive for trace blood, positive Nit, positive Danielle and bacteria 4+, WBC >30 and 5-10 epi. Patient was started on Rocephin and Urology was called by EMD. On my evaluation patient was comfortable in bed with some residual flank and hip pain. Patient will be admitted for IVF, pain control, IV antibiotics, Urology consultation and following her clinical course. Patient has had morphine prior with no reactions for her tubal per her recollection. Patient anaphylaxis reaction to CONTRAST DYE. Continue Aspirin and Plavix is on hold. NPO until Urology evaluation. Patient has had her COVID vaccine and COVID test is negative on admission Allergies Allergy/AdvReac Type Severity Reaction Status Date / Time Iodinated Contrast Media Allergy Severe ANAPHYLAXIS Verified 01/17/21 08:47 pine nut Allergy Intermediate "ITCHY Verified 01/17/21 08:47 MOUTH" walnut Allergy Intermediate "ITCHY Verified 01/17/21 08:47 MOUTH" SEVERAL FRUITS Allergy Intermediate "ITCHY Uncoded 01/17/21 08:47 MOUTH". Home Medications Medication Instructions Recorded Confirmed Type cholecalciferol (vitamin D3) 25 1,000 units PO QAM 02/26/19 01/17/21 History mcg (1,000 unit) tablet cinnamon bark 500 mg capsule 500 mg PO QAM 02/26/19 01/17/21 History aspirin 81 mg tablet,delayed 81 mg PO QAM tab 03/20/19 01/17/21 History release nitroglycerin 0.4 mg sublingual 0.4 mg SL Q5M PRN #30 tab 03/20/19 01/17/21 History tablet albuterol sulfate 90 mcg/actuation 2 puffs INH Q4H PRN #1 inhaler 09/03/19 01/17/21 Rx aerosol inhaler phenazopyridine 100 mg tablet 100 mg PO TID PRN #30 tab 01/10/20 01/17/21 Rx metoprolol tartrate 25 mg tablet 25 mg PO BID #180 tab 10/23/20 01/17/21 Rx rosuvastatin 20 mg tablet 20 mg PO QAM 12/04/20 01/17/21 History clopidogrel 75 mg PO QAM 01/17/21 01/17/21 History coQ10 (ubiquinol) 200 mg PO PM 01/17/21 01/17/21 History fluticasone propionate 2 spray INTRANASAL DAILY PRN 01/17/21 01/17/21 History lactobacillus combination no.4 3,000 mmu cells PO PM 01/17/21 01/17/21 History [Probiotic] losartan 50 mg PO PM 01/17/21 01/17/21 History omeprazole 20 mg PO PM 01/17/21 01/17/21 History vitamin B complex 1 tab PO PM 01/17/21 01/17/21 History Past Med/Surg History Medical History Anemia Arthritis Ascending aortic aneurysm Asthma CAD (coronary artery disease) Generalized osteoarthritis of hand HTN (hypertension) Hyperlipidemia Lyme disease Myalgia Obesity REJI (obstructive sleep apnea) Unstable angina Surgical History H/O heart artery stent History of by dilation and evacuation History of colonoscopy (2008) History of tonsillectomy and adenoidectomy History of total abdominal hysterectomy History of tubal ligation History of unilateral salpingectomy Left side and right side Family History Other Asthma Social History Smoking Status: Former smoker Second Hand Exposure: No; Do You Dip or Chew Tobacco: No; Tobacco Cessation Education Requested by Patient: No Hx Alcohol Use: Yes Alcohol type: wine Alcohol type Comment: 2-3 glasses of wine per night Alcohol Intake Frequency Comment: nightly Hx Substance Use: No Preferred Language: Kazakh Search Engine Optimization Specialist Required: No Beliefs That Will Affect Care: None marital status: Current Living Situation: Spouse Other Information That Helps Us Care for You: No Feels Safe at Home: Yes Safety Concerns: Feels Safe At This Time Assistive Devices: Glasses Review of Systems Review of Systems: REVIEW OF SYSTEMS: Constitutional: (+) fever, sweats or chills Eyes: No diplopia, no worsening or blurred vision ENT: normal hearing, no trouble swallowing Respiratory: No cough, sputum, dyspnea at rest or on exertion Cardiovascular: No chest pain, tightness or palpitations Abdomen: (+) pain, nausea, vomiting, NO diarrhea or constipation Musculoskeletal: (+) joint pain, hip pain, back pain, NO calf pain, swelling Neurologic: No weakness, numbness/tingling, or balance problems Psychiatric: No anxiety or depression Skin: No rash or itch Physical Exam Physical Exam: PHYSICAL EXAM: General: awake, alert, no apparent distress Head: Normocephalic, atraumatic ENT: PERRL, EOMI, no pharyngeal exudate, mucous membranes moist Neuro: AAO x 3, speech clear and appropriate, strength intact bilaterally 5/5, sensation intact and equal all extremities and dermatomes, no pronator drift Chest: equal rise and fall of the chest, no accessory muscle use, no heaves or thrills, Clear to auscultation, on NC following MSO4 administration Cardiac: Regular rate and rhythm, telemetry reviewed, skin warm dry, cap refill <3 seconds, peripheral pulses +2 no JVD, no murmur, no edema GI: NABS x 4 quadrants, soft, tender to palpation left flank, no rebound, guarding or tenderness : Spontaneously voiding, no pain, (+) CVA tenderness, bladder pressure Extremities: Normal inspection, no peripheral edema or erythema, calfs nontender to palpation Psych: Normal mood and affect Skin: no rash or erythema Results & Data Results & Data ([facility]) Vital Signs (Past 12 Hours) Vital Signs Temp Pulse Resp BP Pulse Ox 01/17/21 11:00 104 H 18 154/84 H 94 01/17/21 10:30 103 H 25 H 172/81 H 93 01/17/21 10:00 101 H 21 145/90 H 95 01/17/21 09:31 93 H 22 160/89 H 95 01/17/21 09:16 109 H 22 111/86 96 01/17/21 09:01 105 H 24 162/81 H 92 01/17/21 08:30 69 17 159/96 H 94 01/17/21 08:10 98 01/17/21 07:22 35.7 C L 66 20 196/89 H 97 Laboratory Results Abnormal lab results 01/17/21 01/17/21 01/17/21 Range/Units 07:53 07:53 07:53 Neut # (Auto) 6.51 H (1.4-6.5) K/uL Chloride 109 H (98-107) mmol/L Glucose 143 H (70-99) mg/dl Lipase 497 H (73-393) U/L Urine Appearance Cloudy A (Clear) Urine Protein 1+ H (Negative) Urine Blood 2+ H (Negative) Urine Nitrite (Negative) Ur Leukocyte Esterase 3+ H (Negative) Urine WBC (Auto) >30 H (0-5) /hpf Urine RBC (Auto) 5-10 H (0-4) /hpf U Epithel Cells (Auto) >30 H (0-5) /lpf Urine Bacteria (Auto) 4+ H (Negative) 01/17/21 Range/Units 10:11 Neut # (Auto) (1.4-6.5) K/uL Chloride (98-107) mmol/L Glucose (70-99) mg/dl Lipase (73-393) U/L Urine Appearance (Clear) Urine Protein (Negative) Urine Blood Trace H (Negative) Urine Nitrite Positive A (Negative) Ur Leukocyte Esterase 2+ H (Negative) Urine WBC (Auto) >30 H (0-5) /hpf Urine RBC (Auto) (0-4) /hpf U Epithel Cells (Auto) 5-10 H (0-5) /lpf Urine Bacteria (Auto) 4+ H (Negative) Diagnostic Findings Abdomen/Pelvis CT 01/17/21 07:34 CT SCAN OF THE ABDOMEN AND PELVIS WITHOUT IV CONTRAST CLINICAL HISTORY: Left flank pain. COMPARISON STUDY: No priors. TECHNIQUE: CT scan of the abdomen and pelvis is performed from the lung bases to the proximal femora. Images are reviewed in the axial, sagittal, and coronal planes. IV contrast was not administered for this examination. A dose lowering technique was utilized adhering to the principles of ALARA. CT DOSE: 960.17 mGy.cm FINDINGS: Lung bases: The heart is normal in size and without pericardial effusion. There are coronary artery calcifications. The lung bases are clear noting dependent atelectasis. There is a small hiatal hernia. Liver: The unenhanced liver is normal in size, contour, and attenuation. There is no intrahepatic biliary ductal dilatation. Gallbladder: A calcified gallstone measures at least 2.7 cm. There is no CT evidence of acute cholecystitis. Spleen: Normal in size and attenuation. Pancreas: Unremarkable. Adrenal glands: Unremarkable. Kidneys: The unenhanced kidneys are normal in size. There is a 7 mm obstructing calculus in the left proximal ureter at the level of L4, which is best seen on image #210. This causes moderate left hydronephrosis. There is associated left- sided perinephric stranding. No additional calculi are identified in either ki dney. There is no right-sided hydronephrosis. There is no evidence of contour deforming renal mass lesion. A circumaortic left renal vein is incidentally noted. Abdominal vasculature: The abdominal aorta is normal in course and caliber noting mild atherosclerotic calcification. Bowel: There is moderate diverticulosis of the left colon without CT evidence of acute diverticulitis. No bowel obstruction is seen. The appendix is well- visualized and normal. Peritoneum: There is no intraperitoneal free air or abdominal ascites. There is a fat-containing umbilical hernia. Lymphadenopathy: None. Pelvic viscera: The bladder is partially decompressed and appears circumferentially thick walled. The uterus is surgically absent. No adnexal lesion is seen. There is a fat-containing right inguinal hernia. Skeletal structures: The skeletal structures are osteopenic. There is mild to moderate lumbosacral spondylosis. Mild sclerotic change is noted in the sacroiliac joints and pubic symphysis. No lytic or blastic lesions are seen. IMPRESSION: 1. There is a 7 mm obstructing calculus in the left proximal ureter. This causes moderate left hydronephrosis. 2. No additional calculi are identified in either kidney. 3. The bladder wall appears circumferentially thickened. Correlate with urinalysis. 4. Cholelithiasis. 5. Colonic diverticulosis without CT evidence of acute diverticulitis. Electronically signed by: Jose Guadalupe Irene M.D. 01/17/2021 8:43 AM Medications Administered Discontinued Medications Acetaminophen (Acetaminophen 1000 Mg/100 Ml Iv) 1,000 mg IV NOW STA Stop: 01/17/21 11:33 Last Admin: 01/17/21 11:50 Dose: 1,000 mg Documented by: [id number] Diphenhydramine HCl (Diphenhydramine 50 Mg/Ml Vial) 25 mg IV NOW STA Stop: 01/17/21 09:18 Last Admin: 01/17/21 09:22 Dose: 25 mg Documented by: [id number] Diphenhydramine HCl (Diphenhydramine 50 Mg/Ml Vial) 25 mg IV NOW STA Stop: 01/17/21 09:19 Last Admin: 01/17/21 09:19 Dose: Not Given Documented by: [id number] Famotidine (Famotidine 20mg/5ml Iv Push) 20 mg IV ONE STA Stop: 01/17/21 11:35 Last Admin: 01/17/21 11:51 Dose: 20 mg Documented by: [id number] Sodium Chloride (Nss 1000ml) 1,000 mls @ 999 mls/hr IV .Q1H1M ONE Stop: 01/17/21 08:34 Last Infusion: 01/17/21 09:00 Dose: 0 mls/hr Documented by: [id number] Admin: 01/17/21 07:59 Dose: 999 mls/hr Documented by: [id number] Sodium Chloride (Nss 1000ml) 1,000 mls @ 999 mls/hr IV .Q1H1M ONE Stop: 01/17/21 10:00 Last Infusion: 01/17/21 10:30 Dose: 0 mls/hr Documented by: [id number] Admin: 01/17/21 09:31 Dose: 999 mls/hr Documented by: [id number] Ceftriaxone Sodium (Rocephin) 1,000 mg in 50 mls @ 100 mls/hr IV NOW STA Stop: 01/17/21 11:31 Last Infusion: 01/17/21 11:37 Dose: 0 mls/hr Documented by: [id number] Admin: 01/17/21 11:07 Dose: 100 mls/hr Documented by: [id number] Ketorolac Tromethamine (Ketorolac Tromethamine 15 Mg/Ml Vial) 15 mg IV NOW ONE Stop: 01/17/21 07:35 Last Admin: 01/17/21 07:58 Dose: 15 mg Documented by: [id number] Morphine Sulfate (Morphine Sulfate 10 Mg/Ml Carp/Vial) 6 mg IV NOW STA Stop: 01/17/21 07:35 Last Admin: 01/17/21 07:58 Dose: 6 mg Documented by: [id number] Ondansetron HCl (Ondansetron Inj 2 Mg/Ml 2 Ml Vial) 4 mg IV NOW STA Stop: 01/17/21 07:35 Last Admin: 01/17/21 07:58 Dose: 4 mg Documented by: [id number] Ondansetron HCl (Ondansetron Inj 2 Mg/Ml 2 Ml Vial) 4 mg IV NOW STA Stop: 01/17/21 10:14 Last Admin: 01/17/21 10:19 Dose: 4 mg Documented by: [id number] ECG Additional Comments: Sinus tachycardia Otherwise normal ECG When compared with ECG of 21-MAR-2017 10:01, Vent. rate has increased BY 45 BPM Criteria for Septal infarct are no longer Present T wave inversion no longer evident in Ant erolateral leads Code Status & VTE Plan Code Status CODE: FULL VTE: SCD's, Heparin 5000 sub q, ambulation VTE Prophylaxis Plan VTE Prophylaxis will be ordered: Yes Supervising Physician Co-Signing Physician Notes Patient was seen and examined independently I discussed the case with Miek BURRIS I reviewed pertinent past medical social family history and also the plan of care and agree with the plan of care. Patient presented with flank pain and some systemic symptoms according to BP mediated or perhaps infection mediated. Patient seemed to have a possible reaction to pain medications. She does have known reactions to pine nuts walnuts fruits and iodinated contrast material. Pain is found to have a 7 mm left proximal ureter stone with moderate hydro, urology is consulted patient be admitted for pain control intravenous fluids antibiotics urine cultures. She was given ceftriaxone in the emergency department. Physical exam she is slightly lethargic from pain medication reproducible left flank pain and left mid abdomen pain she is mildly tachycardic her respirations are nonlabored her lungs are clear Any exceptions will be noted below PG Care Time/CCT Total # of Minutes Spent Total Time Spent with Patient: Total time spent is greater than 50% in coordination of care (as documented) at patient's floor/unit and/or counseling patient: Coding Level of Care Code 11741 Initial Inpt Care Lvl 3 Diagnoses Renal stone N20.0 UTI (urinary tract infection) N39.0; R31.9 Hematuria presence: with hematuria Urinary tract infection type: site unspecified CAD (coronary artery disease) I25.10 Associated angina: without angina Coronary Disease-Associated Artery/Lesion type: [place] artery [place] vs. transplanted heart: [place] heart Mild ascending aorta dilatation I77.810 HTN (hypertension) I10 Hypertension type: unspecified Hyperlipidemia E78.5 Hyperlipidemia type: unspecified Arthritis M19.90 REJI (obstructive sleep apnea) G47.33 Allergic rhinitis J30.89 Allergic rhinitis seasonality: unspecified Allergic rhinitis trigger: other Esophageal reflux K21.9 Esophagitis presence: without esophagitis (1) UTI (urinary tract infection) Hematuria presence: with hematuria Urinary tract infection type: site unspecified Qualified Code(s): N39.0 - Urinary tract infection, site not specified; R31.9 - Hematuria, unspecified (2) CAD (coronary artery disease) Associated angina: without angina Coronary Disease-Associated Artery/Lesion type: [place] artery [place] vs. transplanted heart: [place] heart Qualified Code(s): I25.10 - Atherosclerotic heart disease of [place] coronary artery without angina pectoris (3) Hyperlipidemia Hyperlipidemia type: unspecified Qualified Code(s): E78.5 - Hyperlipidemia, unspecified (4) Esophageal reflux Esophagitis presence: without esophagitis Qualified Code(s): K21.9 - Gastro- esophageal reflux disease without esophagitis (5) Allergic rhinitis Allergic rhinitis seasonality: unspecified Allergic rhinitis trigger: other Qualified Code(s): J30.89 - Other allergic rhinitis (6) HTN (hypertension) Hypertension type: unspecified Qualified Code(s): I10 - Essential (primary) hypertension
[2021-01-17] MEDS ORDERED: HYDROmorphone INJ 0.5 MG/0.5 ML SYR ONE (13:08)
[2021-01-17] MEDS ORDERED: HYDROmorphone INJ 0.5 MG/0.5 ML SYR IV PRN (14:37)
[2021-01-17] MEDS ORDERED: ALBUTEROL HFA 8 GM INHALER INH PRN (14:37)
[2021-01-17] MEDS ORDERED: cefTRIAXone SODIUM 1,000 MG in DEXTROSE 5% 50 ML IV SCH (14:37)
[2021-01-17] MEDS ORDERED: HYDROmorphone INJ 0.5 MG/0.5 ML SYR IV STA (14:37)
[2021-01-17] MEDS ORDERED: FLUTICASONE PROPIONATE NA SPR 16 GM BTL PRN (14:37)
[2021-01-17] MEDS ORDERED: oxyCODONE/ACETAMINOPHEN 5mg/325mg TAB PO PRN (14:37)
[2021-01-17] MEDS ORDERED: NITROGLYCERIN SL 0.4 MG/TAB TAB SL PRN (14:37)
[2021-01-17] MEDS: TAMSULOSIN HCL 0.4 MG CAP PO SCH (15:34)
[2021-01-17] MEDS: LACTATED RINGER'S 1,000 ML IV SCH (15:34)
[2021-01-17] MEDS: KETOROLAC TROMETHAMINE 15 MG/ML VIAL IV PRN ×2 (16:52→23:18)
[2021-01-17] MEDS ORDERED: NON-FORMULARY MEDICATION (Coq10 (Ubiquinol) 200 mg Capsule) PO SCH (21:00)
[2021-01-17] MEDS: LOSARTAN POTASSIUM 50 MG TAB PO SCH (21:14)
[2021-01-17] MEDS: METOPROLOL TARTRATE 25 MG TAB PO SCH (21:14)
[2021-01-17] MEDS: HEPARIN SOD 5,000 UNIT/0.5 ML VIAL SQ SCH (21:16)
--- NOTE | 2021-01-17 22:21 | Urology Consultation ---
Date of Consultation January 17, 2021 Assessment & Plan (1) Left ureteral stone: Patient has been admitted on the hospital service proceeding as follows: Continue analgesics Continue antiemetics IV fluid for hydration measures should be employed Flomax has been initiated for expulsive therapy Antibiotics in the form of Rocephin have been initiated. A urine culture has been sent and is pending and antibiotics can be tailored based on the results of this We will keep the patient n.p.o. in the event that cystoscopic intervention is required if her stone does not pass Supervising Physician Co-Signing Physician Notes agree with PA consultation plan for intervention today - cysto, left ureteral stent placement History of Present Illness Reason for Consultation: Nephrolithiasis Attending Physician: Riki Ivory MD History of Present Illness This 65-year-old female who presented [facility] emergency department secondary to left-sided flank pain. Patient notes that she was having the pain on and off in her left lower back/flank for approximately 1 week. She initially felt that the pain was merely a muscle pull as it would come and go but over the past day the pain has gotten progressively worse and gotten very severe to the point where she presented to the emergency department. She notes that the pain does not have any palliative or provocative factors and appears to come and go on its own. She notes that the pain does radiate to the front side of her abdomen and into her left groin. Patient does have associated nausea vomiting due to the pain but she denies any fevers, or chills. Although she has been afebrile she says she did experience one episode of rigors in the emergency department and it was unclear if this was related to morphine that she received for pain control. She denies any dysuria or hematuria. She notes that she has never had any issues with kidney stones in the past. Since admission to the hospital the patient has had labs and imaging which I dependently reviewed. She did have a CT scan of her abdomen showed a 7 mm obstructing calculus in the left proximal ureter causing left hydronephrosis. She did have labs were CBC revealed white blood cell count, hemoglobin, hematocrit, and platelet count were all within normal range. Patient had a chemistry profile where her sodium and potassium were normal. BUN and creatinine were not elevated and were both within the normal range. A urinalysis was performed that showed trace blood along with positive nitrites. Patient was also noted to have 2+ positive leukocyte esterase along with greater than 30 white blood cells per high-power field and 4+ bacteria. A Covid test was performed and was noted to be negative. It is noteworthy mention that the patient is a former smoker and has suffered a heart attack in 2017. Patient follows with Dr. Nazario Mitchell and his most recent office note was reviewed. Patient did have a drug-eluting stent placed to the mid left anterior descending artery. Due to her heart condition the patient does take dual antiplatelet therapy with aspirin as well as Plavix. She is also treated with high intensity statin therapy. Per Dr. Mitchell's notes Plavix therapy can be interrupted if needed for noncardiac procedures. At the time of my interview the patient is resting comfortably in bed her pain had subsided for the moment and she was in no distress. Allergies Allergy/AdvReac Type Severity Reaction Status Date / Time Iodinated Contrast Media Allergy Severe ANAPHYLAXIS Verified 01/17/21 08:47 pine nut Allergy Intermediate "ITCHY Verified 01/17/21 08:47 MOUTH" walnut Allergy Intermediate "ITCHY Verified 01/17/21 08:47 MOUTH" SEVERAL FRUITS Allergy Intermediate "ITCHY Uncoded 01/17/21 08:47 MOUTH". Home Medications Medication Instructions Recorded Confirmed Type cholecalciferol (vitamin D3) 25 1,000 units PO QAM 02/26/19 01/17/21 History mcg (1,000 unit) tablet cinnamon bark 500 mg capsule 500 mg PO QAM 02/26/19 01/17/21 History aspirin 81 mg tablet,delayed 81 mg PO QAM tab 03/20/19 01/17/21 History release nitroglycerin 0.4 mg sublingual 0.4 mg SL Q5M PRN #30 tab 03/20/19 01/17/21 History tablet albuterol sulfate 90 mcg/actuation 2 puffs INH Q4H PRN #1 inhaler 09/03/19 0 01/17/21 Rx aerosol inhaler phenazopyridine 100 mg tablet 100 mg PO TID PRN #30 tab 01/10/20 01/17/21 Rx metoprolol tartrate 25 mg tablet 25 mg PO BID #180 tab 10/23/20 01/17/21 Rx rosuvastatin 20 mg tablet 20 mg PO QAM 12/04/20 01/17/21 History clopidogrel 75 mg PO QAM 01/17/21 01/17/21 History coQ10 (ubiquinol) 200 mg PO PM 01/17/21 01/17/21 History fluticasone propionate 2 spray INTRANASAL DAILY PRN 01/17/21 01/17/21 History lactobacillus combination no.4 3,000 mmu cells PO PM 01/17/21 01/17/21 History [Probiotic] losartan 50 mg PO PM 01/17/21 01/17/21 History omeprazole 20 mg PO PM 01/17/21 01/17/21 History vitamin B complex 1 tab PO PM 01/17/21 01/17/21 History Patient History Medical History Anemia Arthritis Ascending aortic aneurysm Asthma CAD (coronary artery disease) Generalized osteoarthritis of hand HTN (hypertension) Hyperlipidemia Lyme disease Myalgia Obesity REJI (obstructive sleep apnea) Unstable angina Surgical History H/O heart artery stent History of by dilation and evacuation History of colonoscopy (2008) History of tonsillectomy and adenoidectomy History of total abdominal hysterectomy History of tubal ligation History of unilateral salpingectomy Left side and right side Family History Other Asthma Social History Smoking Status: Former smoker Second Hand Exposure: No; Do You Dip or Chew Tobacco: No; Tobacco Cessation Education Requested by Patient: No Hx Alcohol Use: Yes Alcohol type: wine Alcohol type Comment: 2-3 glasses of wine per night Alcohol Intake Frequency Comment: nightly Hx Substance Use: No Preferred Language: Palestinian Pharmacoepidemiologist Required: No Beliefs That Will Affect Care: None marital status: Current Living Situation: Spouse Other Information That Helps Us Care for You: No Feels Safe at Home: Yes Safety Concerns: Feels Safe At This Time Assistive Devices: Glasses Review of Systems Constitutional: no fever and no chills Eyes: no diplopia Ear, Nose, Mouth, Throat: no ear pain Respiratory: no cough Cardiovascular: no chest pain Gastrointestinal: + abdominal pain (Pain radiating from left flank), + nausea and + vomiting Genitourinary: + flank pain (Left-sided); no dysuria and no hematuria Musculoskeletal: + back pain (Left-sided lower back and flank pain) Integumentary: no rash Neurologic: no localized weakness Physical Exam Constitutional: well developed and well nourished; no acute distress Eyes: no conjunctival abnormality ENMT: Ears: no hearing impairment Neck: trachea midline Respiratory: normal respiratory effort; no respiratory distress and no labored breathing Cardiovascular: Rate/Rhythm: regular rate and regular rhythm Gastrointestinal (Abdomen): Percussion/Palpation: abdomen soft; abdomen nontender Musculoskeletal: No calf tenderness Skin: no rashes, warm and dry Neurologic: moves all extremities Psychiatric: A+Ox3, euthymic affect Results & Data ([facility]) Vital Signs (Past 12 Hours) Vital Signs Temp Pulse Pulse Pulse Resp BP BP 01/17/21 21:10 102 H 116/69 01/17/21 19:07 37.1 C 104 H 20 100/62 01/17/21 16:00 36.8 C 123 H 18 108/70 01/17/21 14:00 107 H 21 115/63 01/17/21 13:30 111 H 20 117/66 01/17/21 13:00 105 H 18 123/68 01/17/21 12:30 106 H 20 138/71 01/17/21 12:00 102 H 20 139/78 01/17/21 11:30 105 H 22 155/76 H 01/17/21 11:00 104 H 18 154/84 H 01/17/21 10:30 103 H 25 H 172/81 H Pulse Ox 01/17/21 21:10 01/17/21 19:07 91 01/17/21 16:00 92 01/17/21 14:00 95 01/17/21 13:30 93 01/17/21 13:00 94 01/17/21 12:30 94 01/17/21 12:00 95 01/17/21 11:30 93 01/17/21 11:00 94 01/17/21 10:30 93 PG Care Time/CCT Total # of Minutes Spent Total Time Spent with Patient: Total time spent is greater than 50% in coordination of care (as documented) at patient's floor/unit and/or counseling patient: Coding Level of Care Code 43444 Inpt Consult Level 5 Diagnoses Left ureteral stone N20.1
[2021-01-18] MEDS: LACTATED RINGER'S 1,000 ML IV SCH ×2 (01:24→15:21)
[2021-01-18 06:17] LABS: Basophils # (auto) 0.02 K/uL (0-0.2); Basophils % (auto) 0.1 %; Eosinophils # (auto) 0.11 K/uL (0-0.5); Eosinophils % (auto) 0.7 %; Hematocrit (blood only) 31.5 % (37-47); Hemoglobin 10.1 g/dL (12.0-16.0); Immature Granulocytes % (auto) 0.6 %; Lymphocytes # (auto) 0.97 K/uL (1.2-3.4); Mean Corpuscular Hemoglobin 30.1 pg (25-34); Mean Corpuscular Hgb Conc 32.1 g/dL (32-36); Mean Platelet Volume 10.6 fL (7.4-10.4); Monocytes # (auto) 0.45 K/uL (0.11-0.59); Monocytes % (auto) 2.8 %; Neutrophils # (auto) 14.49 K/uL (1.4-6.5); Neutrophils % (auto) 89.8 %; Platelet Count 163 K/uL (130-400); RDW Coefficient of Variation 13.2 % (11.5-14.5); RDW Standard Deviation 45.7 fL (36.4-46.3); Red Blood Count 3.35 M/uL (4.2-5.4); White Blood Count 16.14 K/uL (4.8-10.8)
--- NOTE | 2021-01-18 06:43 | Electrocardiogram Report ---
Test Reason : Blood Pressure : / mmHG Vent. Rate : 103 BPM Atrial Rate : 103 BPM P-R Int : 170 ms QRS Dur : 074 ms QT Int : 330 ms P-R-T Axes : 062 012 034 degrees QTc Int : 432 ms Sinus tachycardia Otherwise normal ECG When compared with ECG of 21-MAR-2017 10:01, Vent. rate has increased BY 45 BPM Criteria for Septal infarct are no longer Present T wave inversion no longer evident in Anterior leads T wave inversion now evident in Lateral leads Confirmed by Clifton Borges ([id number]) on 01/18/2021 6:42:42 AM Referred By: REFERRED SELF Confirmed By:Clifton Borges
[2021-01-18 06:48] LABS: BUN Creatinine Ratio 16.6 (10-20); Creatinine Clr Calc Pharmacy 47.3 ml/min; Est GFR (African American) 45.2 ml/min; Magnesium 1.6 mg/dl (1.8-2.4); Potassium 4.1 mmol/L (3.5-5.1)
--- NOTE | 2021-01-18 07:01 | Hospitalist Progress Note ---
Date of Service January 18, 2021 Assessment & Plan (1) Renal stone: 7 mm obstructing calculus in the left proximal ureter at the level of L4, which is best seen on image #210. This causes moderate left hydronephrosis. There is associated left-sided perinephric stranding. No additional calculi are identified in either kidney - Associated with rigors and vomiting - Pain controlled with Toradol and opioid- will change her opioid to hydromorphone as ? response to morphine - Tylenol IV, Toradol 10mg IV q6 PRN, Percocet 5/325 q6 prn, hydromorphone 0.5mg IV q4 - LR at 100 - Strain urine - Urology consult placed - NPO (2) UTI (urinary tract infection): Uncomplicated - ? association with renal stone - Continue Rocephin 1GM q12 - As above (3) CAD (coronary artery disease): Stable no chest pain or dyspnea with activity. Patient was actually going out to golf this morning - Hold Plavix for intervention - Continue ASA - Continue Metoprolol 25 BID - Continue Losartan 50 mg PO - Continue Rosuvastatin 20mg - ECHO 2019 EF 55-60% - Ascending Aortic dilation/aneurism 4.1 cm - Coq10 (4) Mild ascending aorta dilatation: As above- BP control - stable with no change (5) HTN (hypertension): As above (6) Hyperlipidemia: As above (7) Arthritis: Chronic - Continue Tylenol (8) REJI (obstructive sleep apnea): CPAP 13 cm H20 (9) Allergic rhinitis: Continue albuterol Continue Fluticasone Asthma controlled (10) Esophageal reflux: Can change back to omeprazole PO in morning - Famotidine IV BID for H2 effects with ? morphine reaction Admission and Anticipated Discharge Date Admission Date: January 17, 2021 Results & Data Results & Data ([facility]) Vital Signs (Past 12 Hours) Vital Signs Temp Pulse Pulse Resp BP Pulse Ox 01/18/21 03:36 99.3 F 85 18 101/66 93 01/18/21 01:08 76 01/17/21 23:29 98.4 F 86 18 94/59 L 92 01/17/21 21:10 102 H 116/69 01/17/21 19:07 98.8 F 104 H 20 100/62 91 PG Care Time/CCT Total # of Minutes Spent Total Time Spent with Patient: Total time spent is greater than 50% in coordination of care (as documented) at patient's floor/unit and/or counseling patient: Coding Diagnoses Renal stone N20.0 UTI (urinary tract infection) N39.0; R31.9 Urinary tract infection type: site unspecified Hematuria presence: with hematuria CAD (coronary artery disease) I25.10 Coronary Disease-Associated Artery/Lesion type: [place] artery [place] vs. transplanted heart: [place] heart Associated angina: without angina Mild ascending aorta dilatation I77.810 HTN (hypertension) I10 Hypertension type: unspecified Hyperlipidemia E78.5 Hyperlipidemia type: unspecified Arthritis M19.90 REJI (obstructive sleep apnea) G47.33 Allergic rhinitis J30.89 Allergic rhinitis trigger: other Allergic rhinitis seasonality: unspecified Esophageal reflux K21.9 Esophagitis presence: without esophagitis (1) UTI (urinary tract infection) Urinary tract infection type: site unspecified Hematuria presence: with hematuria Qualified Code(s): N39.0 - Urinary tract infection, site not specified; R31.9 - Hematuria, unspecified (2) CAD (coronary artery disease) Coronary Disease-Associated Artery/Lesion type: [place] artery [place] vs. transplanted heart: [place] heart Associated angina: without angina Qualified Code(s): I25.10 - Atherosclerotic heart disease of [place] coronary artery without angina pectoris (3) HTN (hypertension) Hypertension type: unspecified Qualified Code(s): I10 - Essential (primary) hypertension (4) Hyperlipidemia Hyperlipidemia type: unspecified Qualified Code(s): E78.5 - Hyperlipidemia, unspecified (5) Allergic rhinitis Allergic rhinitis trigger: other Allergic rhinitis seasonality: unspecified Qualified Code(s): J30.89 - Other allergic rhinitis (6) Esophageal reflux Esophagitis presence: without esophagitis Qualified Code(s): K21.9 - Gastro- esophageal reflux disease without esophagitis
[2021-01-18] MEDS ORDERED: MAGNESIUM SULFATE / D5W 1 GM/100 ML BAG IV ONE (07:11)
[2021-01-18] MEDS: HEPARIN SOD 5,000 UNIT/0.5 ML VIAL SQ SCH ×2 (07:56→20:13)
[2021-01-18] MEDS: ASPIRIN 81 MG ECTAB PO SCH (07:56)
[2021-01-18] MEDS: ROSUVASTATIN CALCIUM 20 MG TAB PO SCH (07:56)
[2021-01-18] MEDS: METOPROLOL TARTRATE 25 MG TAB PO SCH ×2 (07:56→20:13)
[2021-01-18] MEDS: TAMSULOSIN HCL 0.4 MG CAP PO SCH (07:56)
--- NOTE | 2021-01-18 08:26 | Anesthesiology Consultation ---
Date of Service January 18, 2021 Assessment & Plan (1) Encounter for pre-operative examination: Chart Review Chart Review: Acceptable Risk for Surgery and Patient NOT seen in Pre Admission Testing Consults Requested none History Surgery Operation Date: 01/18/21 08:30 Proposed Procedures p Cystoscopy(Left) - Ranjeet Caldera MD Height/Weight Height: 5 ft 6 in Weight: 99.3 kg Allergies Allergy/AdvReac Type Severity Reaction Status Date / Time Iodinated Contrast Media Allergy Severe ANAPHYLAXIS Verified 01/17/21 08:47 pine nut Allergy Intermediate "ITCHY Verified 01/17/21 08:47 MOUTH" walnut Allergy Intermediate "ITCHY Verified 01/17/21 08:47 MOUTH" SEVERAL FRUITS Allergy Intermediate "ITCHY Uncoded 01/17/21 08:47 MOUTH". Medications Home Medications Medication Instructions Recorded Confirmed Last Taken cholecalciferol (vitamin D3) 25 1,000 units PO QAM 02/26/19 01/17/21 01/16/21 mcg (1,000 unit) tablet cinnamon bark 500 mg capsule 500 mg PO QAM 02/26/19 01/17/21 01/16/21 aspirin 81 mg tablet,delayed 81 mg PO QAM tab 03/20/19 01/17/21 01/16/21 release nitroglycerin 0.4 mg sublingual 0.4 mg SL Q5M PRN #30 tab 03/20/19 01/17/21 Unknown tablet albuterol sulfate 90 mcg/actuation 2 puffs INH Q4H PRN #1 inhaler 09/03/19 01/17/21 Unknown aerosol inhaler phenazopyridine 100 mg tablet 100 mg PO TID PRN #30 tab 01/10/20 01/17/21 Unknown metoprolol tartrate 25 mg tablet 25 mg PO BID #180 tab 10/23/20 01/17/21 01/16/21 rosuvastatin 20 mg tablet 20 mg PO QAM 12/04/20 01/17/21 01/16/21 clopidogrel 75 mg PO QAM 01/17/21 01/17/21 01/16/21 coQ10 (ubiquinol) 200 mg PO PM 01/17/21 01/17/21 01/16/21 fluticasone propionate 2 spray INTRANASAL DAILY PRN 01/17/21 01/17/21 01/16/21 lactobacillus combination no.4 3,000 mmu cells PO PM 01/17/21 01/17/21 01/16/21 [Probiotic] losartan 50 mg PO PM 01/17/21 01/17/21 01/16/21 omeprazole 20 mg PO PM 01/17/21 01/17/21 01/16/21 vitamin B complex 1 tab PO PM 01/17/21 01/17/21 01/16/21 Active Medications Generic Name Dose Route Start Last Admin Trade Name Berhane PRN Reason Stop Dose Admin Aspirin 81 mg 01/18/21 09:00 01/18/21 07:56 Aspirin 81 Mg Ectab PO 02/17/21 08:59 81 mg QAM JACKIE Administration Heparin Sodium (Porcine) 5,000 units 01/17/21 21:00 01/18/21 07:56 Heparin Sod 5,000 Unit/0.5 Ml Vial SQ 02/16/21 20:59 5,000 units Q12 JACKIE Administration Hydromorphone HCl 0.5 mg 01/17/21 14:37 01/18/21 04:04 Hydromorphone Inj 0.5 Mg/0.5 Ml Syr IV 01/31/21 14:36 0.5 mg Q4 PRN Administration Pain Lactated Ringer's 1,000 mls @ 100 mls/hr 01/17/21 14:37 01/18/21 07:55 Lr IV 02/16/21 14:36 0 mls/hr .Q10H JACKIE Infusion Magnesium Sulfate/Dextrose 1 gm in 100 mls @ 50 mls/hr 01/18/21 07:11 01/18/21 07:55 Magnesium Sulfate / D5w IV 01/18/21 09:10 50 mls/hr ONE ONE Administration Ketorolac Tromethamine 15 mg 01/17/21 14:37 01/17/21 23:18 Ketorolac Tromethamine 15 Mg/Ml Vial IV 01/22/21 14:36 15 mg Q6H PRN Administration Pain Losartan Potassium 50 mg 01/17/21 21:00 01/17/21 21:14 Losartan Potassium 50 Mg Tab PO 02/16/21 20:59 50 mg PM JACKIE Administration Metoprolol Tartrate 25 mg 01/17/21 21:00 01/18/21 07:56 Metoprolol Tartrate 25 Mg Tab PO 02/16/21 20:59 25 mg BID JACKIE Administration Rosuvastatin Calcium 20 mg 01/18/21 09:00 01/18/21 07:56 Rosuvastatin Calcium 20 Mg Tab PO 02/17/21 08:59 20 mg QAM JACKIE Administration Tamsulosin HCl 0.4 mg 01/17/21 14:37 01/18/21 07:56 Tamsulosin Hcl 0.4 Mg Cap PO 02/16/21 14:36 0.4 mg QAM JACKIE Administration Past Medical History Medical History Anemia Arthritis Ascending aortic aneurysm Asthma CAD (coronary artery disease) Generalized osteoarthritis of hand HTN (hypertension) Hyperlipidemia Lyme disease Myalgia Obesity REJI (obstructive sleep apnea) Unstable angina Past Family History Family History Other Asthma Past Surgical History Surgical History H/O heart artery stent History of by dilation and evacuation History of colonoscopy (2008) History of tonsillectomy and adenoidectomy History of total abdominal hysterectomy History of tubal ligation History of unilateral salpingectomy Left side and right side Social History Smoking Status: Former smoker Do You Dip or Chew Tobacco: No Hx Alcohol Use: Yes Alcohol type: wine alcohol intake frequency: 3 or more drinks per day Hx Substance Use: No Physical Exam Vital Signs Last Vital Signs Temp 37.4 C 01/18/21 03:36 Pulse 85 01/18/21 03:36 Resp 18 01/18/21 03:36 BP 101/66 01/18/21 03:36 Pulse Ox 93 01/18/21 03:36 Testing Laboratory Results 01/18/21 05:40 01/18/21 05:40 Urine Color Yellow 01/17/21 10:11 Urine Appearance Clear (Clear) 01/17/21 10:11 Urine pH 6.0 (4.5-7.5) 01/17/21 10:11 Ur Specific [place] 1.010 (1.000-1.030) 01/17/21 10:11 Urine Protein Negative (Negative) 01/17/21 10:11 Urine Glucose (UA) Negative (Negative) 01/17/21 10:11 Urine Ketones Negative (Negative) 01/17/21 10:11 Urine Nitrite Positive (Negative) A 01/17/21 10:11 Ur Leukocyte Esterase 2+ (Negative) H 01/17/21 10:11 Urine WBC (Auto) >30 /hpf (0-5) H 01/17/21 10:11 Urine RBC (Auto) 0-4 /hpf (0-4) 01/17/21 10:11 U Hyaline Cast (Auto) 1-5 /lpf (0-5) 01/17/21 10:11 U Epithel Cells (Auto) 5-10 /lpf (0-5) H 01/17/21 10:11 Urine Bacteria (Auto) 4+ (Negative) H 01/17/21 10:11 01/17/21 10:11 Urine Culture - Preliminary Urine,Clean Catch Escherichia coli 01/17/21 07:53 Urine Culture - Preliminary Urine,Clean Catch Escherichia coli
--- NOTE | 2021-01-18 08:49 | Urology Progress Note ---
Date of Service January 18, 2021 Assessment & Plan (1) Acute UTI: (2) Left ureteral stone: Left ureteral stone with obstruction; suspected cystitis without renal infection (afebrile) -plan for intervention now - cysto, stent placement - cont ceftriaxone Admission and Anticipated Discharge Date Admission Date: January 17, 2021 Subjective still with left flank pain no fevers WBC increased this AM e.coli in urine dysuria + Physical Exam Constitutional: well developed and well nourished Neck: neck nontender Respiratory: normal respiratory effort; no respiratory distress and does not use accessory muscles Cardiovascular: Rate/Rhythm: regular rate Vessels: radial pulses present Extremities: no edema Gastrointestinal (Abdomen): Inspection/Auscultation: abdomen normal to inspection Percussion/Palpation: abdomen soft; abdomen nontender and no guarding Musculoskeletal: Head/Neck/Chest: normocephalic and head atraumatic Extremities: extremities normal to inspection Skin: no rashes and no lesions Trauma: no evidence of skin trauma Neurologic: awake; not obtunded Speech / Cognition: normal speech Motor/Sensory: no tremor Psychiatric: Orientation: alert and oriented x 3 Lymphatic: no lymphadenopathy Results & Data ([facility]) Vital Signs (Past 12 Hours) Vital Signs Temp Pulse Pulse Pulse Resp BP Pulse Ox 01/18/21 07:30 36.7 C 82 18 108/67 93 01/18/21 03:36 37.4 C 85 18 101/66 93 01/18/21 01:08 76 01/17/21 23:29 36.9 C 86 18 94/59 L 92 01/17/21 21:10 102 H 116/69 PG Care Time/CCT Total # of Minutes Spent Total Time Spent with Patient: Total time spent is greater than 50% in coordination of care (as documented) at patient's floor/unit and/or counseling patient: Coding Level of Care Code 74935 Subseq Hosp Care Lvl 3 Diagnoses Acute UTI N39.0 Left ureteral stone N20.1
[2021-01-18] MEDS ORDERED: PROPOFOL IV EMULSION 10 MG/ML 20 ML VIAL IV ONE (08:57)
[2021-01-18] MEDS ORDERED: LIDOCAINE 2% 2 ML VIAL/AMP(20MG/ML) INFIL ONE (08:57)
[2021-01-18] MEDS ORDERED: fentaNYL citrate 100 MCG/2 ML VIAL ONE (09:06)
--- NOTE | 2021-01-18 09:17 | Operative Report ---
PG Post Operative Report Pre & Post Diagnosis Operation Date: 01/18/21 08:30 Pre-Op Diagnosis: RENAL STONE,UTI Post-Op Diagnosis: RENAL STONE,UTI I identified the patient and participated in the time-out.: Yes Procedure Operation Date: 01/18/21 08:30 Actual Procedures p Cystoscopy(Left) - Ranjeet Caldera MD Surgeon Nazario Caldera MD [employer] none Estimated Blood Loss 0 Findings Consistent with Post-Op Diagnosis Specimens none Description of Procedure The patient was identified in the preoperative holding area, appropriate informed consents were reviewed and completed and the patient was transferred to the operative suite. Upon arrival, appropriate antibiotics and anesthesia were administered and the patient was placed in dorsal lithotomy position and prepped and draped in sterile fashion. Healthy appearing bladder. Ureteral orifices in orthotopic position. I cannulated the left UO with a sensor wire which advanced the kidney. There was a discharge of bloody/purulent urine. I placed a 6 [place] by 24 cm stent seeing good curl in the kidney as well as the bladder. The bladder was decompressed and the case was concluded. She was reversed of anesthesia and taken to the recovery room in stable condition. I attest to the content of the Intraoperative Record and any orders documented therein. Any exceptions are noted below.
--- NOTE | 2021-01-18 09:21 | Fluoroscopy Report ---
FL KUB CLINICAL HISTORY: LT CYSTO STENT PLACEMENT IN OR COMPARISON STUDY: None. FLUOROSCOPY TIME: 3.5 seconds. FINDINGS: Single fluoroscopic spot images of the abdomen demonstrate a left ureteral stent. Only the proximal portion of the stent is identified and appears in good position. IMPRESSION: Fluoroscopy provided for left ureteral stent placement. ACT 112: Negative or not required by law. Electronically signed by: Abraham Morocho M.D. 01/18/2021 9:20 AM
[2021-01-18] MEDS ORDERED: ONDANSETRON INJ 2 MG/ML 2 ML VIAL IV PRN ×2 (09:25→20:03)
[2021-01-18] MEDS ORDERED: fentaNYL citrate 100 MCG/2 ML VIAL IV PRN (09:25)
[2021-01-18] MEDS ORDERED: ONDANSETRON INJ 2 MG/ML 2 ML VIAL ONE (09:25)
[2021-01-18] MEDS ORDERED: ATROPINE SULFATE 0.1 MG/ML 10ML SYR IV PRN (09:25)
[2021-01-18] MEDS ORDERED: ePHEDrine sulfate 50 MG/ML AMP IV PRN (09:25)
--- NOTE | 2021-01-18 10:27 | Anesthesiology Progress Note ---
Date of Service January 18, 2021 Anesthesia Post Procedure Vital Signs Vital Signs: Temp Pulse Pulse Pulse Pulse Resp BP 01/18/21 09:50 36.5 C 77 12 01/18/21 09:40 73 13 01/18/21 09:30 76 15 01/18/21 09:24 36.4 C L 79 14 01/18/21 07:30 36.7 C 82 18 01/18/21 03:36 37.4 C 85 18 01/18/21 01:08 76 01/17/21 23:29 36.9 C 86 18 01/17/21 21:10 102 H 01/17/21 19:07 37.1 C 104 H 20 01/17/21 16:00 36.8 C 123 H 18 01/17/21 14:00 107 H 21 115/63 01/17/21 13:30 111 H 20 117/66 01/17/21 13:00 105 H 18 123/68 01/17/21 12:30 106 H 20 138/71 01/17/21 12:00 102 H 20 139/78 01/17/21 11:30 105 H 22 155/76 H 01/17/21 11:00 104 H 18 154/84 H 01/17/21 10:30 103 H 25 H 172/81 H BP Pulse Ox 01/18/21 09:50 112/64 94 01/18/21 09:40 102/60 94 01/18/21 09:30 110/59 L 93 01/18/21 09:24 103/57 L 93 01/18/21 07:30 108/67 93 01/18/21 03:36 101/66 93 01/18/21 01:08 01/17/21 23:29 94/59 L 92 01/17/21 21:10 116/69 01/17/21 19:07 100/62 91 01/17/21 16:00 108/70 92 01/17/21 14:00 95 01/17/21 13:30 93 01/17/21 13:00 94 01/17/21 12:30 94 01/17/21 12:00 95 01/17/21 11:30 93 01/17/21 11:00 94 01/17/21 10:30 93 Pain Intensity Abdomen: Pain Intensity: 7 Left Flank: Pain Intensity: 3 Transfer of Care Handoff Completed per policy Notes Mental Status: alert / awake / arousable and participated in evaluation Nausea / Vomiting: adequately controlled Pain: adequately controlled Airway Patency, RR, SpO2: stable & adequate BP & HR: stable & adequate Hydration State: stable & adequate Anesthetic Complications: no major complications apparent and Pt Satisfied with anesthetic care
--- NOTE | 2021-01-18 11:51 | Hospitalist Progress Note ---
Date of Service January 18, 2021 Assessment & Plan (1) Renal colic: (2) Left ureteral stone: Renal colic in the setting of left proximal ureteral stone with hydronephrosis. -Underwent cystoscopy with left ureteral stent placement by Dr. Caldera this morning. Plan is for possible ureteroscopy with laser lithotripsy later this week with urology. Patient doing well post-operatively. Pain improved. C/o some dysuria. Will order Pyridium 100mg TID PRN. Continue Flomax. Dilaudid and Percocet ordered for pain. Will d/c Toradol in the setting of rising Cr. -Rising WBC count to 16.14 and rising Cr to 1.41 this AM. Should improve now that stent was placed. Recheck CBC and BMP in AM. Continue IV ceftriaxone pending UC&S sensitivities. (3) Acute UTI: UC&S preliminarily growing e coli. Sensitivities pending. Continue IV ceftriaxone pending sensitivities. Will need ~12 days of PO abx upon discharge. (4) CAD (coronary artery disease): Stable no chest pain or dyspnea with activity. - Plavix held for procedure. Resume in AM. - Continue ASA - Continue Metoprolol 25 BID - Continue Losartan 50 mg PO - Continue Rosuvastatin 20mg - ECHO 2019 EF 55-60% - Ascending Aortic dilation/aneurism 4.1 cm - Coq10 (5) Mild ascending aorta dilatation: Stable. BP controlled. (6) HTN (hypertension): BP stable at 112/64. Continue metoprolol and losartan as above. (7) Hyperlipidemia: Continue rosuvastatin. (8) Arthritis: Chronic. Stable. Continue Tylenol. (9) REJI (obstructive sleep apnea): CPAP 13cm H2O. Patient is scheduled to see Dr. Araiza tomorrow 1514. She reports that per [place] [employer] guidelines, she needed to f/u with him within 10 weeks of starting CPAP for insurance coverage. Hopefully she can be discharged in time to make this appointment. If not, could check with Dr. Araiza's office to see if she could do a telehealth visit vs reschedule. (10) Allergic rhinitis: Controlled. Continue albuterol. Continue fluticasone. (11) Esophageal reflux: On omeprazole at home. Received IV famotidine prior to procedure. Will be placed on pantoprazole 40mg qAM today. (12) DVT prophylaxis: SCDs Disposition: Possible d/c home tomorrow if leukocytosis and Cr improved and culture sensitivities finalized. Admission and Anticipated Discharge Date Admission Date: January 17, 2021 Supervising Physician Co-Signing Physician Notes PA Supervision Note: I did not personally see or examine the patient today, but I verified all almanza points of FATUMA De Anda's assessment and plan with the following exceptions/additions: Hypomagnesemia-was given 1 gram of IV magnesium today Subjective 65 year old female admitted for left proximal ureteral stone with hydronephrosis, rigors, and vomiting. Patient was seen by urology this AM, and underwent cystoscopy with left ureteral stent placement in the setting of leukocytosis, rising Cr, and UTI. She reports she is feeling better since stent placement. Denies n/v, abdominal or flank pain. She does c/o dysuria. Review of Systems Constitutional: no fever and no chills Eyes: no worsening vision Ear, Nose, Mouth, Throat: no dizziness Respiratory: no dyspnea Cardiovascular: no chest pain Gastrointestinal: no abdominal pain, no nausea and no vomiting Genitourinary: + dysuria Psychiatric: no confusion Physical Exam Constitutional: + obese; no acute distress ENMT: Ears: no hearing impairment Neck: trachea midline, no thyromegaly Respiratory: normal respiratory effort, lungs clear to auscultation Cardiovascular: RRR, no murmur, no edema Gastrointestinal (Abdomen): Inspection/Auscultation: normal bowel sounds Percussion/Palpation: abdomen soft; abdomen nontender Psychiatric: A+Ox3, euthymic affect Lymphatic: no cervical or axillary lymphadenopathy Results & Data Results & Data ([facility]) Vital Signs (Past 12 Hours) Vital Signs Temp Pulse Pulse Pulse Pulse Resp BP 01/18/21 09:50 36.5 C 77 12 112/64 01/18/21 09:40 73 13 102/60 01/18/21 09:30 76 15 110/59 L 01/18/21 09:24 36.4 C L 79 14 103/57 L 01/18/21 07:30 36.7 C 82 18 108/67 01/18/21 03:36 37.4 C 85 18 101/66 01/18/21 01:08 76 Pulse Ox 01/18/21 09:50 94 01/18/21 09:40 94 01/18/21 09:30 93 01/18/21 09:24 93 01/18/21 07:30 93 01/18/21 03:36 93 01/18/21 01:08 PG Care Time/CCT Total # of Minutes Spent Total Time Spent with Patient: Total time spent is greater than 50% in coordination of care (as documented) at patient's floor/unit and/or counseling patient: Coding Level of Care Code 13207 Subseq Hosp Care Lvl 2 Medical Decision Making Moderate Complexity Diagnoses Renal colic N23 Left ureteral stone N20.1 Acute UTI N39.0 CAD (coronary artery disease) I25.10 Mild ascending aorta dilatation I77.810 HTN (hypertension) I10 Hypertension type: unspecified Hyperlipidemia E78.5 Hyperlipidemia type: unspecified Arthritis M19.90 REJI (obstructive sleep apnea) G47.33 Allergic rhinitis J30.89 Allergic rhinitis seasonality: unspecified Allergic rhinitis trigger: other Esophageal reflux K21.9 Esophagitis presence: without esophagitis DVT prophylaxis Z29.9 (1) Hyperlipidemia Hyperlipidemia type: unspecified Qualified Code(s): E78.5 - Hyperlipidemia, unspecified (2) Esophageal reflux Esophagitis presence: without esophagitis Qualified Code(s): K21.9 - Gastro- esophageal reflux disease without esophagitis (3) Allergic rhinitis Allergic rhinitis seasonality: unspecified Allergic rhinitis trigger: other Qualified Code(s): J30.89 - Other allergic rhinitis (4) HTN (hypertension) Hypertension type: unspecified Qualified Code(s): I10 - Essential (primary) hypertension
[2021-01-18] MEDS: PHENAZOPYRIDINE HCL 100 MG TAB PO PRN ×2 (11:54→20:19)
[2021-01-18] MEDS ORDERED: cefTRIAXone SODIUM 2,000 MG in DEXTROSE 5% 50 ML IV SCH (12:00)
[2021-01-18] MEDS: PANTOprazole 40 MG TAB PO SCH (12:57)
[2021-01-18] MEDS: LOSARTAN POTASSIUM 50 MG TAB PO SCH (20:13)
[2021-01-18] MEDS ORDERED: Nursing to Pharmacy Communication SCH (20:30)
[2021-01-19] MEDS: LACTATED RINGER'S 1,000 ML IV SCH (01:29)
[2021-01-19 07:40] LABS: Estimated Average Glucose 114 mg/dl; Hemoglobin A1C 5.6 % (4.5-5.6)
[2021-01-19] MEDS: PANTOprazole 40 MG TAB PO SCH (07:48)
[2021-01-19] MEDS: METOPROLOL TARTRATE 25 MG TAB PO SCH (07:48)
[2021-01-19] MEDS: HEPARIN SOD 5,000 UNIT/0.5 ML VIAL SQ SCH (07:48)
[2021-01-19] MEDS: TAMSULOSIN HCL 0.4 MG CAP PO SCH (07:48)
[2021-01-19] MEDS: ROSUVASTATIN CALCIUM 20 MG TAB PO SCH (07:48)
[2021-01-19] MEDS: ASPIRIN 81 MG ECTAB PO SCH (07:49)
[2021-01-19 07:58] LABS: Basophils # (auto) 0.02 K/uL (0-0.2); Basophils % (auto) 0.2 %; Eosinophils # (auto) 0.12 K/uL (0-0.5); Eosinophils % (auto) 0.9 %; Hematocrit (blood only) 31.4 % (37-47); Hemoglobin 10.1 g/dL (12.0-16.0); Immature Granulocytes # (auto) 0.04 K/uL (0.00-0.02); Immature Granulocytes % (auto) 0.3 %; Lymphocytes # (auto) 0.91 K/uL (1.2-3.4); Mean Corpuscular Hemoglobin 30.1 pg (25-34); Mean Corpuscular Hgb Conc 32.2 g/dL (32-36); Mean Corpuscular Volume 93.7 fL (80-100); Mean Platelet Volume 10.6 fL (7.4-10.4); Monocytes # (auto) 0.35 K/uL (0.11-0.59); Monocytes % (auto) 2.7 %; Neutrophils # (auto) 11.65 K/uL (1.4-6.5); Neutrophils % (auto) 88.9 %; Platelet Count 149 K/uL (130-400); RDW Coefficient of Variation 12.7 % (11.5-14.5); RDW Standard Deviation 43.2 fL (36.4-46.3); Red Blood Count 3.35 M/uL (4.2-5.4); White Blood Count 13.09 K/uL (4.8-10.8)
[2021-01-19 08:35] LABS: BUN Creatinine Ratio 17.5 (10-20); Calcium 9.1 mg/dl (8.5-10.1); Est GFR (African American) 103.6 ml/min; Est GFR (Non-African American) 89.4 ml/min; Magnesium 1.9 mg/dl (1.8-2.4); Potassium 3.8 mmol/L (3.5-5.1)
[2021-01-19] MEDS ORDERED: CLOPIDOGREL BISULFATE 75 MG TAB PO SCH (09:00)
--- NOTE | 2021-01-19 10:36 | Urology Progress Note ---
Date of Service January 19, 2021 Assessment & Plan (1) Left ureteral stone: (2) S/P ureteral stent placement: (3) Acute UTI: 65 year old female POD #1 s/p left stent placement with Dr. Caldera. - Doing well, progressing as expected - Afebrile, creatinine improved to 0.71, WBC improved to 13.09. - Tolerating ureteral stent with minimal bother - UC&S grew out pansensitive E. coli, on IV Ceftriaxone - recommend transition to PO antibiotics upon discharge - Okay to discharge from perspective - Recommend discharge to home with antibiotics, Flomax, prn Pyridium, prn oxybutynin, and prn pain management for stent discomfort - Expected clinical course reviewed, all questions answered - Will arrange follow-up with our service to discuss definitive stone management Admission and Anticipated Discharge Date Admission Date: January 17, 2021 Subjective 65 year old female POD #1 s/p left stent placement with Dr. Caldera. Pt seen and examined at bedside. No acute issues overnight. Generally feeling better than yesterday. Notes some fatigue and low appetite, but improved. No abdominal or flank pain. Voiding without difficulty. She notes some dysuria and mild bladder discomfort, prn Pyridium is helping. No nausea or vomiting. No fever or chills. No additional concerns today. Chart review: Afebrile, creatinine 0.71, WBC 13.09, Hgb 10.1. UC&S grew out E. coli - pansensitive. On IV Ceftriaxone. Review of Systems Constitutional: as per Subjective / HPI Gastrointestinal: as per Subjective / HPI Genitourinary: as per Subjective / HPI Physical Exam Constitutional: well developed and well nourished; no acute distress and not ill appearing Respiratory: normal respiratory effort and able to speak in complete sentences; no respiratory distress and no labored breathing Cardiovascular: Extremities: no pedal edema Gastrointestinal (Abdomen): Inspection/Auscultation: abdomen normal to inspection; abdomen not distended Percussion/Palpation: abdomen soft; abdomen nontender and no guarding Musculoskeletal: Head/Neck/Chest: normocephalic and head atraumatic Skin: no rashes, warm and dry Neurologic: moves all extremities and awake Psychiatric: Orientation: alert and oriented x 3 Genitourinary: no CVA tenderness Results & Data ([facility]) Vital Signs (Past 12 Hours) Vital Signs Temp Pulse Pulse Resp BP Pulse Ox 01/19/21 07:42 37.2 C 74 17 145/83 H 91 01/19/21 03:30 37.2 C 77 18 110/67 98 01/19/21 00:04 83 PG Care Time/CCT Total # of Minutes Spent Total Time Spent with Patient: Total time spent is greater than 50% in c oordination of care (as documented) at patient's floor/unit and/or counseling patient: Coding Level of Care Code 08718 Subseq Hosp Care Lvl 2 Diagnoses Left ureteral stone N20.1 S/P ureteral stent placement Z96.0 Acute UTI N39.0
[2021-01-19] MEDS: PHENAZOPYRIDINE HCL 100 MG TAB PO PRN (12:23)
--- NOTE | 2021-01-19 16:25 | Discharge Summary ---
Date of Service January 19, 2021 Admission HPI Per Admitting Provider 65 YOF with past medical history of: HTN, HLD, CAD with PCI ANGEL to LAD (2017, remains on DAPT), COPD, Ascending Aortic Aneurysm, obesity, Lyme disease in 2019 associated with myalgias and pond's palsy with lower extremity weakness. She drinks 2-3 glasses of wine per night. Patient comes in today for acute onset of sharp stabbing pain to her left flank and hip area this morning around 0530. This was associated with nausea and vomiting. She had episodes of feeling warm this morning as well. On the way to the EMD she also had some dry heaves and small amount of vomiting. IN the EMD she was given Toradol and morphine. Following the Morphine patient had some rigors with teeth chattering; as concern for reaction to the morphine EMD gave her Benadryl. Patient had a CT scan of her abdomen done and routine labs to include a urine microscopy/culture. CT scan was notable for 7mm left obstructing stone in the mid ureter with mild hydronephrosis, her Urine was positive for trace blood, positive Nit, positive Danielle and bacteria 4+, WBC >30 and 5-10 epi. Patient was started on Rocephin and Urology was called by EMD. On my evaluation patient was comfortable in bed with some residual flank and hip pain. Patient will be admitted for IVF, pain control, IV antibiotics, Urology consultation and following her clinical course. Patient has had morphine prior with no reactions for her tubal per her recollection. Patient anaphylaxis reaction to CONTRAST DYE. Continue Aspirin and Plavix is on hold. NPO until Urology evaluation. Patient has had her COVID vaccine and COVID test is negative on admission Principal Diagnosis Left kidney stone Discharge Exam Constitutional WD/WN, vitals as above Eyes EOM intact bilaterally; no conjunctival abnormality ENMT external ear and nose normal, oropharynx normal Neck trachea midline, no thyromegaly normal visual inspection Respiratory normal respiratory effort, lungs clear to auscultation no respiratory distress Cardiovascular RRR, no murmur, no edema Gastrointestinal (Abdomen) Inspection/Auscultation: abdomen normal to inspection; abdomen not distended Musculoskeletal no cyanosis or clubbing, extremities motor strength 5/5 Skin no rashes, warm and dry Neurologic moves all extremities and awake Psychiatric Orientation: alert, oriented to person and cooperative Discharge Data Allergies Allergy/AdvReac Type Severity Reaction Status Date / Time Iodinated Contrast Media Allergy Severe ANAPHYLAXIS Verified 01/17/21 08:47 pine nut Allergy Intermediate "ITCHY Verified 01/17/21 08:47 MOUTH" walnut Allergy Intermediate "ITCHY Verified 01/17/21 08:47 MOUTH" SEVERAL FRUITS Allergy Intermediate "ITCHY Uncoded 01/17/21 08:47 MOUTH". Consultations 01/17/21 14:37 Consult Urology Routine Procedures Performed Operation Date: 01/18/21 08:30 Actual Procedures p Cystoscopy, (Left) - Ranjeet Caldera MD s Left Ureteral Stent Placement(Left) - Ranjeet Caldera MD Ordered Studies 01/17/21 07:34 CT abd pelvis wo con Stat 01/18/21 FL KUB Routine Hospital Course (1) Renal stone: 7 mm obstructing calculus in the left proximal ureter at the level of L4, which is best seen on image #210. This causes moderate left hydronephrosis. There is associated left-sided perinephric stranding. No additional calculi are identified in either kidney - Left-sided stent placed by Dr. Caldera on 01/18. Pain improved significantly and was essentially resolved by discharge. - Discharged per urology on oral abx (ciprofloxacin x 7 days), Flomax, and pain control. Will follow-up with urology for stone extraction and stent removal in office. (2) UTI (urinary tract infection): Uncomplicated. - As above (3) CAD (coronary artery disease): Stable no chest pain or dyspnea with activity. Patient was actually going out to golf this morning. - ECHO 2020 EF 55-60% - Ascending Aortic dilation/aneurism 4.1 cm - No change in these meds on discharge. (4) Mild ascending aorta dilatation: As above- BP control - stable with no change (5) HTN (hypertension): As above (6) Hyperlipidemia: As above (7) Arthritis: Chronic - Continue Tylenol (8) REJI (obstructive sleep apnea): CPAP 13 cm H20 (9) Allergic rhinitis: Continue albuterol Continue Fluticasone Asthma controlled (10) Esophageal reflux: Can change back to omeprazole PO in morning Total Time Total Time Spent Total Time Spent (In Minutes): 35 Discharge Plan Discharge Items Patient Disposition: Home - Self-Care Reason For Visit: RENAL STONE,UTI Discharge Diagnosis: Kidney stone Activity: Resume your previous activity Non-emergency contact: Primary Care Provider Call non-emergency contact if: your symptoms worsen Follow-up/Referrals: Nasir Araiza MD [Primary Care Provider] - Ranjeet Caldera MD [Physician] - (Please call the Urology office on Tuesday if you haven't heard from them yet.) Diet: Regular Addtl Attending Provider Instructions: You were admitted to the hospital with pain and some mild kidney issues to due to a kidney stone. You had a stent put in on the left side which helped relieve the pressure from the kidney stone on the left kidney. We are sending you home on oral antibiotics and pain medication. Please also take the Flomax (tamsulosin) to help pass the kidney stone if it moves at all. It will likely need to be taken out by the urology team. They should call you this week, but if you don't hear from them, please call their office on Tuesday or . Your next antibiotic dose (ciprofloxacin) should be tonight before bedtime. For pain, you can also take [id number] Tylenol (acetaminophen) or Motrin (ibuprofen). Ibuprofen may be the most helpful as it usually helps with kidney- related pain. Please take up to the bottle recommendation amounts. For the burning sensation, you can take the Pyridium up to 3 times per day as needed. For any bladder spasms, we sent in oxybutynin to take as needed. Pending Studies at Discharge: No Stand-Alone Forms: My [facility] Naked, Smoking Cessation Medications and DC Order Prescriptions: New tamsulosin 0.4 mg Capsule 0.4 mg PO QAM Qty: 14 RF: 0 oxybutynin chloride 5 mg tablet 5 mg PO Q12H PRN (Reason: bladder spasms) Qty: 30 RF: 0 Continued aspirin 81 mg tablet,delayed release (DR/EC) 81 mg PO QAM RF: 0 nitroglycerin 0.4 mg tablet, sublingual 0.4 mg SL Q5M PRN (Reason: Chest Pain) Qty: 30 RF: 0 albuterol sulfate [Ventolin HFA] 90 mcg/actuation HFA aerosol inhaler 2 puffs INH Q4H PRN (Reason: Shortness Of Breath) Qty: 1 RF: 11 phenazopyridine [Pyridium] 100 mg tablet 100 mg PO TID PRN (Reason: pain) Qty: 30 RF: 0 rosuvastatin [Crestor] 20 mg tablet 20 mg PO QAM RF: 0 cinnamon bark [Cinnamon] 500 mg capsule 500 mg PO QAM RF: 0 cholecalciferol (vitamin D3) 1,000 unit (25 mcg) tablet 1,000 units PO QAM RF: 0 metoprolol tartrate 25 mg tablet 25 mg PO BID Qty: 180 RF: 3 losartan 50 mg tablet 50 mg PO PM RF: 0 clopidogrel 75 mg tablet 75 mg PO QAM RF: 0 omeprazole 20 mg capsule,delayed release(DR/EC) 20 mg PO PM RF: 0 vitamin B complex Tablet 1 tab PO PM RF: 0 fluticasone propionate 50 mcg/actuation spray,suspension 2 spray intranasal DAILY PRN (Reason: seasonal allergies) RF: 0 coQ10 (ubiquinol) 200 mg Capsule 200 mg PO PM RF: 0 Probiotic 3 billion cell Capsule 3,000 mmu cells PO PM RF: 0 No Action nitrofurantoin monohyd/m-cryst [Macrobid] 100 mg capsule 100 mg PO Q12H 7 Days Qty: 14 RF: 0 Discharge Orders: Discharge Order (Routine); Ordered 01/19/21 Ordered By: Jarad Mccormack Admission Data Admit Date/Time: 01/17/21 12:02 Attending Provider: Jarad Mccormack Admit Provider: Jabari Wick Primary Care Provider: Nasir Araiza Other Providers: Ranjeet Caldera Other Interventions: Discharge Summary Assessment (RN) Last Done: 01/19/21 12:00 Coding Level of Care Code D/C Day Management >30 mins Diagnoses Renal stone N20.0 UTI (urinary tract infection) N39.0; R31.9 Urinary tract infection type: site unspecified Hematuria presence: with hematuria CAD (coronary artery disease) I25.10 Coronary Disease-Associated Artery/Lesion type: [place] artery [place] vs. transplanted heart: [place] heart Associated angina: without angina Mild ascending aorta dilatation I77.810 HTN (hypertension) I10 Hypertension type: unspecified Hyperlipidemia E78.5 Hyperlipidemia type: unspecified Arthritis M19.90 REJI (obstructive sleep apnea) G47.33 Allergic rhinitis J30.89 Allergic rhinitis trigger: other Allergic rhinitis seasonality: unspecified Esophageal reflux K21.9 Esophagitis presence: without esophagitis
== END 2021-01-19 13:05 | disposition home or self-care (01) | DRG 661 ==
LOC: ED 07:19 → SUATTDRO 12:02 → 2W 12:02

== ENCOUNTER 2022-09-27 09:26 | Inpatient (IN) ==
[2022-09-27] MEDS ORDERED: FAMOTIDINE 20MG IV PUSH 20 MG/5 ML SYR IV STA (09:48)
[2022-09-27] MEDS ORDERED: ONDANSETRON INJ 2 MG/ML 2 ML VIAL IV STA (09:48)
[2022-09-27] MEDS ORDERED: ACETAMINOPHEN 1,000 MG/100 ML VIAL IV STA (09:48)
[2022-09-27] MEDS ORDERED: SODIUM CHLORIDE 0.9% 1000ML 1,000 ML IV ONE (09:48)
--- NOTE | 2022-09-27 10:06 | Emergency Department Note ---
Impression & Plan Diverticulitis, Small bowel obstruction, Leukocytosis ED Provider Note NAME: ELIDA RAND AGE: 67 SEX: F ARRIVES VIA: Walk-In INFORMANT: Patient ED PROVIDER(S): Ilia Alston MD CHIEF COMPLAINT: abd pain PLAN: Disposition: Admit MEDICAL DECISION MAKING: The patient is a pleasant 67-year-old woman with a past medical history of hypertension, nephrolithiasis, REJI, CAD who presents to the emergency department accompanied by her from home for evaluation of ongoing nausea, generalized abdominal pain and frequent diarrhea that has been persistent since Tuesday where she feels she may have been suffering from food poisoning after eating chicken salad. Her had had the same meal but has had no symptoms. She denies any cough or congestion. She denies any chest pain or shortness of breath. She denies any urinary symptoms. On arrival the patient is fatigued and uncomfortable no acute distress, afebrile stable vital signs. She appears clinically dry. She has generalized abdominal discomfort without discrete tenderness to palpation. There is no guarding or rebound. WBC 13.9K, nonspecific. H/H and platelets within normal limits. Chemistry without metabolic acidosis. Electrolytes unremarkable. Total bilirubin 2.7, nonspecific and other LFTs without significant abnormality. Lipase within normal limits. Procalcitonin mildly elevated at 0.55. UA with positive nitrites and WBCs albeit with epithelial cells present. CT of the abdomen pelvis was performed and demonstrates evidence of small bowel obstruction with transition point at the ileum in addition to evidence of sigmoid diverticulitis with the possibility of an enterocolonic fistula. Blood cultures were drawn and the patient was treated with IV Zosyn. Patient was additionally treated with IV fluid hydration with normal saline initially and lactated Ringer's subsequently. Famotidine, analgesia and antiemetics also provided. Case was discussed with Ronna Rubi, general surgery PAC with Dr. Sue general surgery, who evaluated the patient. Appreciate consultation/recommendations with plan for admission to medicine service for IV antibiotics. Case was discussed with FAHAD Perry PA-C with FAHAD Nuñez hospitalist who will evaluate the p atient for admission. Triage Nursing notes reviewed and agree them. Prior/outside medical records reviewed Vital Signs: reviewed Differential diagnosis: See below. ER treatment provided: See below. Diagnostics interpreted by me: Cardiac Monitoring: An order for continuous cardiac monitoring was placed and demonstrated normal sinus rhythm, 88 bpm, no ectopy. Laboratory studies: See below Imaging studies: See below Consultation(s): Ronna Rubi, general surgery PAC with Dr. Sue general surgery. [facility] with [facility]. Metz, [facility] hospitalist. HPI: The patient is a pleasant 67-year-old woman with a past medical history of hypertension, nephrolithiasis, REJI, CAD who presents to the emergency department accompanied by her from home for evaluation of ongoing nausea, generalized abdominal pain and frequent diarrhea that has been persistent since Tuesday where she feels she may have been suffering from food poisoning after eating chicken salad. Her had had the same meal but has had no symptoms. She denies any cough or congestion. She denies any chest pain or shortness of breath. She denies any urinary symptoms. ROS: See above HPI for pertinent positives & negatives. A total of 10 systems reviewed and were otherwise negative. VITALS:See Below PHYSICAL EXAMINATION: GENERAL: Awake, alert, fatigued/uncomfortable-appearing, in no distress, BMI 33.2. HENT: Normocephalic, atraumatic. Oropharynx with dry mucous membranes and otherwise unremarkable. EYES: Normal conjunctiva. Sclera non-icteric. NECK: Supple. No nuchal rigidity. FROM. No JVD. RESPIRATORY: Clear to auscultation. CARDIAC: Regular rate, normal rhythm. Extremities warm and well perfused. Pulses equal. ABDOMEN: Soft, non-distended. Generalized abdominal discomfort without discrete tenderness to palpation. No rebound or guarding. No masses. RECTAL: Deferred. MUSCULOSKELETAL: Chest examination reveals no tenderness. The back is symmetrical on inspection without obvious abnormality. There is no CVA tenderness to palpation. No joint edema. LOWER EXTREMITIES: Calves are equal size bilaterally and non-tender. No edema. No discoloration. NEURO: Normal sensorium. No sensory or motor deficits noted. SKIN: No rash or jaundice noted. 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 Mitchell) Surgical History H/O heart artery stent stent x1 (2016) History of colonoscopy (2008) History of tonsillectomy and adenoidectomy History of total abdominal hysterectomy DEYVI BSO History of tubal ligation Family History Other Asthma Denies family history of Ovarian cancer Breast cancer Colorectal cancer Uterine cancer Social History Smoking Status: Never smoker Second Hand Exposure: No; Do You Dip or Chew Tobacco: No; Tobacco Cessation Education Requested by Patient: No Hx Alcohol Use: Yes Alcohol type: wine Alcohol type Comment: 2-3 glasses of wine per night Alcohol Intake Frequency Comment: nightly Hx Substance Use: No Preferred Language: Thai Communication Ability: Effective Assistant Golf Course Superintendent Required: No Beliefs That Will Affect Care: None marital status: Current Living Situation: Spouse current occupational status: retired current occupation: dental hygenist Other Information That Helps Us Care for You: No Feels Safe at Home: Yes Safety Concerns: Feels Safe At This Time Assistive Devices: None Allergies Allergies Allergy/AdvReac Type Severity Reaction Status Date / Time Iodinated Contrast Media Allergy Severe Anaphylaxis Verified 06/09/22 14:41 pine nut Allergy Intermediate Mouth Verified 06/09/22 14:41 itching walnut Allergy Intermediate Mouth Verified 06/09/22 14:41 itching tamsulosin [From Flomax] AdvReac Verified 06/09/22 14:41 SEVERAL FRUITS Allergy Intermediate Mouth Uncoded 06/09/22 14:41 itching Home Meds Home Medications Medication Instructions Recorded Confirmed cholecalciferol (vitamin D3) 25 1,000 units PO QAM 02/26/19 06/09/22 mcg (1,000 unit) tablet cinnamon bark 500 mg capsule 500 mg PO QAM 02/26/19 06/09/22 (Cinnamon) aspirin 81 mg tablet,delayed 81 mg PO QAM 03/20/19 06/09/22 release coQ10 (ubiquinol) 200 mg capsule 200 mg PO PM 01/17/21 06/09/22 lactobacillus combination no.4 3 3,000 mmu cells PO PM 01/17/21 06/09/22 billion cell capsule (Probiotic) vitamin B complex 1 tab PO PM 01/17/21 06/09/22 Previous Rx's Medication Instructions Recorded beclomethasone dipropionate 80 2 inh intranasal DAILY #10.6 grams 05/20/21 mcg/actuation nasal HFA inhaler (QNASL) nitroglycerin 0.4 mg sublingual 0.4 mg sublingual Q5M PRN Chest 09/08/21 tablet Pain #30 tabs metoprolol tartrate 25 mg tablet 25 mg PO BID #180 tabs 09/24/21 omeprazole 20 mg capsule,delayed 20 mg PO PM #90 caps 09/24/21 release olmesartan 40 mg tablet 40 mg PO DAILY #90 tabs 12/07/21 albuterol sulfate 90 mcg/actuation 2 puff inhalation Q4H PRN 06/07/22 aerosol inhaler (Ventolin HFA) Shortness Of Breath #1 inhaler ezetimibe 10 mg tablet 10 mg PO DAILY #90 tabs 06/09/22 fluconazole 150 mg tablet 150 mg PO .COMPLEX #1 tab 06/24/22 (Diflucan) nitrofurantoin macrocrystal 100 mg 100 mg PO .COMPLEX #10 caps 06/24/22 capsule estradiol 0.01% (0.1 mg/gram) 1 g vaginal 2XWK #42.5 grams 07/15/22 vaginal cream (Estrace) mometasone 220 mcg/actuation(60 1 inh inhalation BID PRN wheezing 07/15/22 doses) breath activated powder #1 inhaler inhaler (Asmanex Twisthaler) nitrofurantoin macrocrystal 100 mg 100 mg PO BID #20 caps 09/23/22 capsule Results & Data (ED) Vital Signs Vital Signs - 24 hr 09/27/22 09:29 09/27/22 09:49 09/27/22 11:56 Temperature 37.1 C Temperature Source Temporal Artery Scan Pulse Rate 95 H Pulse Rate [Right Finger] 73 Respiratory Rate 20 18 Respiratory Effort / Characteristics Non-Labored Spontaneous Non-Labored Respiratory Depth Normal Normal Respiratory Pattern Regular Blood Pressure 138/83 Blood Pressure [Left Arm] 141/72 H Blood Pressure Mean 101 Blood Pressure Mean [Left Arm] 95 Pulse Oximetry 96 97 Oxygen Delivery Method Room Air Room Air Room Air Sepsis New/Unexplained Change in Mental Status N/A Sepsis Action Taken by Nursing No Action Required Laboratory Data Attestation: I reviewed the patient's lab results. 09/27/22 09:39 09/27/22 09:39 Lab Results 09/27/22 09/27/22 09/27/22 Range/Units 09:39 09:39 09:39 WBC 13.91 H (4.8-10.8) K/ul RBC 4.33 (4.20-5.40) M/uL Hgb 12.9 (12.0-16.0) g/dl Hct 39.0 (37.0-47.0) % MCV 90.1 (80.0-100.0) fL MCH 29.8 (25.0-34.0) pg MCHC 33.1 (32.0-36.0) g/dL RDW Std Deviation 41.6 (36.4-46.3) fL RDW Coeff of Priscilla 12.5 (11.5-14.5) % Plt Count 286 (130-400) K/uL MPV 10.5 (9.4-12.4) fL Immature Gran % (Auto) 0.8 % Neut % (Auto) 89.2 % Lymph % (Auto) 6.1 % Gilliam % (Auto) 3.7 % Eos % (Auto) 0.1 % Baso % (Auto) 0.1 % Neut # (Auto) 12.40 H (1.40-6.50) K/uL Lymph # (Auto) 0.85 L (1.2-3.4) K/uL Gilliam # (Auto) 0.52 (0.11-0.59) K/uL Eos # (Auto) 0.01 (0-0.50) K/uL Baso # (Auto) 0.02 (0-0.2) K/uL Immature Gran # (Auto) 0.11 (0.01-0.20) K/uL Sodium 137 (136-145) mmol/L Potassium 3.9 (3.5-5.1) mmol/L Chloride 103 (98-107) mmol/L Carbon Dioxide 22 (21-32) mmol/L Anion Gap 12 H (3-11) BUN 15 (6-23) mg/dl Creatinine 0.88 (0.6-1.2) mg/dl Est Cr Clr Drug Dosing 70.9 ml/min Est GFR ( Amer) 78.8 ml/min Est GFR (Non-Af Amer) 68.0 ml/min BUN/Creatinine Ratio 17.0 (10-20) Glucose 148 H (70-99(Fasting)) mg/dl Calcium 9.5 (8.5-10.1) mg/dl Magnesium 1.7 (1.7-2.4) mg/dl Total Bilirubin 2.7 H (0.2-1.0) mg/dl AST 18 (13-39) U/L ALT 21 (7-52) U/L Alkaline Phosphatase 73 (34-104) U/L Total Protein 6.8 (6.0-8.3) gm/dl Albumin 4.2 (3.4-5.0) gm/dl Globulin 2.6 (2.5-4.0) gm/dl Albumin/Globulin Ratio 1.6 (0.9-2) Lipase 23 (11-82) U/L Procalcitonin 0.55 H (0-0.5) ng/ml SARS-CoV-2 (PCR) (Negative) Influenza Type A (PCR) (Neg) Influenza Type B (PCR) (Neg) RSV (RT-PCR) (Neg) 09/27/22 Range/Units 09:56 WBC (4.8-10.8) K/ul RBC (4.20-5.40) M/uL Hgb (12.0-16.0) g/dl Hct (37.0-47.0) % MCV (80.0-100.0) fL MCH (25.0-34.0) pg MCHC (32.0-36.0) g/dL RDW Std Deviation (36.4-46.3) fL RDW Coeff of Priscilla (11.5-14.5) % Plt Count (130-400) K/uL MPV (9.4-12.4) fL Immature Gran % (Auto) % Neut % (Auto) % Lymph % (Auto) % Gilliam % (Auto) % Eos % (Auto) % Baso % (Auto) % Neut # (Auto) (1.40-6.50) K/uL Lymph # (Auto) (1.2-3.4) K/uL Gilliam # (Auto) (0.11-0.59) K/uL Eos # (Auto) (0-0.50) K/uL Baso # (Auto) (0-0.2) K/uL Immature Gran # (Auto) (0.01-0.20) K/uL Sodium (136-145) mmol/L Potassium (3.5-5.1) mmol/L Chloride (98-107) mmol/L Carbon Dioxide (21-32) mmol/L Anion Gap (3-11) BUN (6-23) mg/dl Creatinine (0.6-1.2) mg/dl Est Cr Clr Drug Dosing ml/min Est GFR ( Amer) ml/min Est GFR (Non-Af Amer) ml/min BUN/Creatinine Ratio (10-20) Glucose (70-99(Fasting)) mg/dl Calcium (8.5-10.1) mg/dl Magnesium (1.7-2.4) mg/dl Total Bilirubin (0.2-1.0) mg/dl AST (13-39) U/L ALT (7-52) U/L Alkaline Phosphatase (34-104) U/L Total Protein (6.0-8.3) gm/dl Albumin (3.4-5.0) gm/dl Globulin (2.5-4.0) gm/dl Albumin/Globulin Ratio (0.9-2) Lipase (11-82) U/L Procalcitonin (0-0.5) ng/ml SARS-CoV-2 (PCR) NEGATIVE (Negative) Influenza Type A (PCR) Negative (Neg) Influenza Type B (PCR) Negative (Neg) RSV (RT-PCR) Negative (Neg) Administered Medications Enoxaparin Sodium (Enoxaparin Inj 40 Mg/0.4 Ml Syr) 40 mg SQ Q24H JACKIE Stop: 10/27/22 14:09 Last Admin: 09/27/22 14:53 Dose: 40 mg Documented By: ZS Lactated Ringer's (Lr) 1,000 mls @ 150 mls/hr IV .Q6H40M JACKIE Stop: 10/27/22 11:14 Last Infusion: 09/27/22 12:37 Dose: 150 mls/hr Documented By: Infusion: 09/27/22 11:53 Dose: 0 mls/hr Documented By: Admin: 09/27/22 11:53 Dose: 150 mls/hr Documented By: RINA Piperacillin Sod/Tazobactam (Sod 3.375 gm/ Dextrose) 115 mls @ 28.75 mls/hr IV Q8H JACKIE; Protocol Stop: 10/07/22 17:59 Last Admin: 09/27/22 17:50 Dose: 28.8 mls/hr Documented By: NAHED Acetaminophen (Ofirmev) 1,000 mg in 100 mls @ 400 mls/hr IV Q8H PRN PRN Reason: pain or fever Stop: 09/30/22 16:34 Last Infusion: 09/27/22 17:23 Dose: 0 mls/hr Documented By: Admin: 09/27/22 16:42 Dose: 400 mls/hr Documented By: NAHED Morphine Sulfate (Morphine Sulfate 4 Mg/Ml 1 Ml Carp\Vial) 4 mg IV Q2H PRN PRN Reason: Severe Pain (Rating 7,8,9,10) Stop: 10/11/22 11:07 Last Admin: 09/27/22 11:52 Dose: 4 mg Documented By: RINA Morphine Sulfate (Morphine Sulfate 2 Mg/Ml Carp) 2 mg IV Q2H PRN PRN Reason: Moderate Pain (Rating 3,4,5,6) Stop: 10/11/22 11:07 Last Admin: 09/27/22 14:50 Dose: 2 mg Documented By: NAHED Discontinued Medications Sodium Chloride (Nss 1000ml) 1,000 mls @ 999 mls/hr IV .Q1H1M ONE Stop: 09/27/22 10:48 Last Infusion: 09/27/22 11:17 Dose: 0 mls/hr Documented By: Admin: 09/27/22 10:09 Dose: 999 mls/hr Documented By: RINA Acetaminophen (Ofirmev) 1,000 mg in 100 mls @ 400 mls/hr IV NOW STA Stop: 09/27/22 10:02 Last Infusion: 09/27/22 10:30 Dose: 0 mls/hr Documented By: Admin: 09/27/22 10:11 Dose: 400 mls/hr Documented By: RINA Famotidine (Pepcid 20mg Iv Push) 20 mg in 5 mls @ 2.5 mls/min IV NOW STA Stop: 09/27/22 09:49 Last Admin: 09/27/22 10:11 Dose: 2.5 mls/min Documented By: RINA Piperacillin Sod/Tazobactam Sod (Zosyn) 4.5 gm in 120 mls @ 240 mls/hr IV NOW ONE Stop: 09/27/22 11:26 Last Infusion: 09/27/22 12:37 Dose: 0 mls/hr Documented By: Admin: 09/27/22 11:53 Dose: 240 mls/hr Documented By: RINA Ondansetron HCl (Ondansetron Inj 2 Mg/Ml 2 Ml Vial) 4 mg IV NOW STA Stop: 09/27/22 09:49 Last Admin: 09/27/22 10:11 Dose: 4 mg Documented By: RINA Imaging Data Radiologist's Impression: Abdomen/Pelvis CT 09/27/22 09:52 CT SCAN OF THE ABDOMEN AND PELVIS WITHOUT IV CONTRAST CLINICAL HISTORY: Generalized abdominal pain. Nausea and diarrhea COMPARISON STUDY: Abdominal CT dated 01/17/2021 TECHNIQUE: CT scan of the abdomen and pelvis is performed from the lung bases to the proximal femora. Images are reviewed in the axial, sagittal, and coronal planes. IV contrast was not administered for this examination. Note that the examination was performed in suboptimal fashion without oral and IV contrast. A dose lowering technique was utilized adhering to the principles of ALARA. CT DOSE: 1093.09 mGy.cm FINDINGS: Lung bases: The heart is top normal in size and without pericardial effusion. The coronary arteries are densely calcified. There is elevation of the right hemidiaphragm and bibasilar atelectasis. No airspace consolidation or pleural effusion is identified. A small hiatal hernia is noted. Liver: The unenhanced liver is enlarged, measuring 20.2 cm in length. The liver demonstrates diffusely diminished attenuation indicating steatosis. There is no intrahepatic biliary ductal dilatation. Gallbladder: A large calcified gallstone measures at least 2.7 cm. There is no CT evidence of acute cholecystitis. Spleen: Normal in size and attenuation. Pancreas: Unremarkable. Adrenal glands: Unremarkable. Kidneys: The unenhanced kidneys are normal in size and without hydronephrosis. There are no renal calculi identified. There is no evidence of contour deforming renal mass lesion. A circumaortic left renal vein is incidentally noted. Abdominal vasculature: The abdominal aorta is normal in course and caliber noting mild atherosclerotic calcification. Bowel: The proximal small bowel loops are distended and fluid-filled, measuring up to 4.8 cm in diameter. A transition point is identified in the ilium on axial image #13. The distal small bowel and colon are decompressed, and the appearance is consistent with a small bowel obstruction. There is trace interloop fluid. No pneumatosis intestinalis or portal venous gas is seen. There is moderate sigmoid diverticulosis. There is wall thickening with inflammation and fluid identified around the sigmoid colon consistent with acute diverticulitis. A fistulous tract is seen extending anteriorly from the sigmoid colon on image #411. There may be an enterocolic fistula on axial image #388. No organized fluid collection is seen to indicate abscess. The appendix is well-visualized and normal. Peritoneum: There is no intraperitoneal free air or abdominal ascites. There is a fat-containing umbilical hernia. Lymphadenopathy: None. Pelvic viscera: The bladder is decompressed and not well evaluated. The uterus is surgically absent. No adnexal lesion is seen. Skeletal structures: The skeletal structures are osteopenic. There is moderate lumbosacral spondylosis. No lytic or blastic lesions are seen. IMPRESSION: 1. There is a small bowel obstruction. A transition point is identified invo lving the ileum and this may be on the basis of adhesions. 2. Colonic diverticulosis with evidence of sigmoid diverticulitis. 3. There is significant inflammation around the sigmoid colon with developing fistulous tracts. There may be an enterocolic fistula with an adjacent loop of small bowel. Sigmoid diverticulitis does not represent the site of bowel obstruction. 4. The bladder is decompressed and not well evaluated. There is no clear CT evidence of colovesicular fistula at the time of examination. Correlate with urinalysis. 5. No organized fluid collection is seen to indicate abscess. 6. Hepatomegaly and hepatic steatosis. 7. Cholelithiasis. 8. Additional findings as above. ACT 112: Negative or not required by law. Electronically signed by: Jose Guadalupe Irene M.D. 09/27/2022 10:21 AM Discharge Plan Visit Data Chief Complaint: Nausea Stated Complaint: POSSIBLE FOOD POISIONING ED Provider: Ilia Alston Discharge Problem: Diverticulitis, Small bowel obstruction, Leukocytosis Patient Disposition: Admitted As Inpatient Discharge Instructions Interventions: ED Discharge Assessment Last Done: 09/27/22 13:33 Leukocytosis Qualifiers: Leukocytosis type: unspecified Qualified Code(s): D72.829 - Elevated white blood cell count, unspecified
[2022-09-27 10:15] LABS: Basophils # (auto) 0.02 K/uL (0-0.2); Basophils % (auto) 0.1 %; Eosinophils # (auto) 0.01 K/uL (0-0.50); Eosinophils % (auto) 0.1 %; Hemoglobin 12.9 g/dl (12.0-16.0); Immature Granulocytes # (auto) 0.11 K/uL (0.01-0.20); Immature Granulocytes % (auto) 0.8 %; Lymphocytes # (auto) 0.85 K/uL (1.2-3.4); Lymphocytes % (auto) 6.1 %; Mean Corpuscular Hemoglobin 29.8 pg (25.0-34.0); Mean Corpuscular Hgb Conc 33.1 g/dL (32.0-36.0); Mean Corpuscular Volume 90.1 fL (80.0-100.0); Mean Platelet Volume 10.5 fL (9.4-12.4); Monocytes # (auto) 0.52 K/uL (0.11-0.59); Monocytes % (auto) 3.7 %; Neutrophils % (auto) 89.2 %; Platelet Count 286 K/uL (130-400); RDW Coefficient of Variation 12.5 % (11.5-14.5); RDW Standard Deviation 41.6 fL (36.4-46.3); Red Blood Count 4.33 M/uL (4.20-5.40); White Blood Count 13.91 K/ul (4.8-10.8)
--- NOTE | 2022-09-27 10:23 | CT Scan Report ---
CT SCAN OF THE ABDOMEN AND PELVIS WITHOUT IV CONTRAST CLINICAL HISTORY: Generalized abdominal pain. Nausea and diarrhea COMPARISON STUDY: Abdominal CT dated 01/17/2021 TECHNIQUE: CT scan of the abdomen and pelvis is performed from the lung bases to the proximal femora. Images are reviewed in the axial, sagittal, and coronal planes. IV contrast was not administered for this examination. Note that the examination was performed in suboptimal fashion without oral and IV contrast. A dose lowering technique was utilized adhering to the principles of ALARA. CT DOSE: 1093.09 mGy.cm FINDINGS: Lung bases: The heart is top normal in size and without pericardial effusion. The coronary arteries a re densely calcified. There is elevation of the right hemidiaphragm and bibasilar atelectasis. No air space consolidation or pleural effusion is identified. A small hiatal hernia is noted. Liver: The unenhanced liver is enlarged, measuring 20.2 cm in length. The liver demonstrates diffusel y diminished attenuation indicating steatosis. There is no intrahepatic biliary ductal dilatation. Gallbladder: A large calcified gallstone measures at least 2.7 cm. There is no CT evidence of acute c holecystitis. Spleen: Normal in size and attenuation. Pancreas: Unremarkable. Adrenal glands: Unremarkable. Kidneys: The unenhanced kidneys are normal in size and without hydronephrosis. There are no renal nettie culi identified. There is no evidence of contour deforming renal mass lesion. A circumaortic left yosef al vein is incidentally noted. Abdominal vasculature: The abdominal aorta is normal in course and caliber noting mild atheroscleroti c calcification. Bowel: The proximal small bowel loops are distended and fluid-filled, measuring up to 4.[address] A transition point is identified in the ilium on axial image #13. The distal small bowel and col on are decompressed, and the appearance is consistent with a small bowel obstruction. There is trace interloop fluid. No pneumatosis intestinalis or portal venous gas is seen. There is moderate sigmoid diverticulosis. There is wall thickening with inflammation and fluid identified around the sigmoid co hai consistent with acute diverticulitis. A fistulous tract is seen extending anteriorly from the sig moid colon on image #411. There may be an enterocolic fistula on axial image #388. No organized fluid collection is seen to indicate abscess. The appendix is well-visualized and normal. Peritoneum: There is no intraperitoneal free air or abdominal ascites. There is a fat-containing umbi lical hernia. Lymphadenopathy: None. Pelvic viscera: The bladder is decompressed and not well evaluated. The uterus is surgically absent. No adnexal lesion is seen. Skeletal structures: The skeletal structures are osteopenic. There is moderate lumbosacral spondylosi s. No lytic or blastic lesions are seen. IMPRESSION: 1. There is a small bowel obstruction. A transition point is identified involving the ileum and this may be on the basis of adhesions. 2. Colonic diverticulosis with evidence of sigmoid diverticulitis. 3. There is significant inflammation around the sigmoid colon with developing fistulous tracts. There may be an enterocolic fistula with an adjacent loop of small bowel. Sigmoid diverticulitis does not represent the site of bowel obstruction. 4. The bladder is decompressed and not well evaluated. There is no clear CT evidence of colovesicular fistula at the time of examination. Correlate with urinalysis. 5. No organized fluid collection is seen to indicate abscess. 6. Hepatomegaly and hepatic steatosis. 7. Cholelithiasis. 8. Additional findings as above. ACT 112: Negative or not required by law. Electronically signed by: Jose Guadalupe Irene M.D. 09/27/2022 10:21 AM
[2022-09-27 10:29] LABS: Creatinine Clr Calc Pharmacy 70.9 ml/min
[2022-09-27 10:54] LABS: Influenza A virus by PCR Negative (Neg); Influenza B virus by PCR Negative (Neg); RSV by PCR Negative (Neg); SARS CoV2 RNA(COVID-19) Ceph NEGATIVE (Negative)
[2022-09-27] MEDS ORDERED: PIPERACILLIN/TAZOBACTAM 4.5 GM/120 ML BAG IV ONE (10:57)
[2022-09-27] MEDS ORDERED: MoRPHine SULFATE 2 MG/ML CARP IV PRN (11:08)
[2022-09-27] MEDS: MoRPHine SULFATE 4 MG/ML 1 ML CARP\\VIAL IV PRN (11:52)
[2022-09-27] MEDS: LACTATED RINGER'S 1,000 ML IV SCH ×2 (11:53→23:29)
--- NOTE | 2022-09-27 12:38 | History & Physical Report ---
Date of Service September 27, 2022 Assessment & Plan (1) Diverticulitis: Plan: Temp 105F at home yesterday and severe abdominal pain/nausea on admission. Hx total hysterectomy. FIRST OCCURRENCE -- reports c-scope ~2yrs ago at [place], no abn. No personal/family hx IBD/crohns/colitis WBC elevation to 13.9k Blood cultures pending, IV Zosyn in ER Admit med/tele CTAP: * SBO w/ transition point involving ileum, possibly based on adhesions * Colonic diverticulosis w/ SIGMOID DIVERTICULITIS * Significant inflammation around sigmoid colon/developing fistulous tracts * ?enterocolic fistula w/ adjacent lop of small bowel. No evidence for colovesicular fistula Discussed w/ General surgery, consult placed -- no NGT for now, continue IV ABx/IVF and will monitor Continue Zosyn Procal pending Blood cultures pending, STRICT NPO LR @ 150cc/hr Continue PPI IVP daily Antiemetics prn Pain control -- tylenol, morphine on sliding scale check stool pcr/cdiff Monitor labs/electrolyte replacement as needed. Keep K~4/mag~2 (check mag/replace if needed w/ AM labs) Lovenox SQ for DVT prophylaxis Likely need CTAP w/ oral contrast once SBO resolved (note allergy/anaphylaxis w/ prior iodinated contrast w/ imaging for her rakesh or kidney stones, UA pending -- does have gallstones as well) Monitor KUB/Labs in AM, electrolyte replacement as needed Will need GI f/u outpatient in 6-8 weeks for c-scope with [facility] (2) Small bowel obstruction: Plan: as above (3) CAD (coronary artery disease): Plan: Follows with Dr Mitchell, Hx CAD/HTN/HLD/mild ascending aorta dilation stable on echo/severe REJI on CPAP Hx NSTEMI -- 03/2017, thought secondary to small non revascularizable diagonal Multivessel CAD -- s/p PCI with ANGEL to mid LAD; moderate to severe non flow- limiting circumflex Holding olmesartan, metoprolol, atorvastatin unable to tolerate and on rosuvasatin/repatha -- also held while npo but mention she hasn't been taking statin due to myalgias (myalgia from chronic lyme reported as well) Place on tele, lopressor available prn BP stable 141/72 presently EKG w/ CP Monitoring on telemetry (4) Hyperlipidemia: Plan: holding PO meds as above (5) REJI (obstructive sleep apnea): Plan: CPAP HS -- may use own machine if able to bring in (6) HTN (hypertension): Plan: hold PO meds lopressor available prn (7) Esophageal reflux: Plan: continue PPI IV daily while NPO (8) Asthma: Plan: continue usual home inhalers, albuterol HFA prn (uses ~1x/week) History of Present Illness Chief Complaint: abdominal pain Primary Care Provider: Nasir Araiza MD 67yo female with PMHx significant for CAD, HTN, HLD, Asthma, REJI, Lyme presented with abdominal pain and thought she had food poisoning however with same meal and no issues. CTAP with evidence for SBO and diverticulitis with possible fistula tracts. Hx hysterectomy/tubal ligation, kidney stones but did not need any open procedures. Patient seen in [facility]10 with at present. Pain was 8/10 this morning and currently 3/10 with medications. Pain primarily along her right side, upper/lower however had been having generalized abdominal pain/spasm prior to admission which has resolved. NEVER had pain like this or prior episodes of diverticulitis. Had some nausea but improved since medication. NO vomiting. Had been having several salads and chicken tenders over the weekend. She had BM this morning liquid, but has been having mixed bowel/urine when going so she doesn't know color of urine. BM this morning liquid yellow/bile in color. No vomiting at present. She notes symptoms started on Tuesday evening and she had a temperature of 105F at home yesterday. Never had history of diverticulitis, reports she had a c-scope in [facility] about 2 years ago but does not remember their name. Denies any abn findings at that time. No family history of IBD/crohns/colitis. Discussed will consult [facility] if needed inpatient but will require outpt follow up regardless. No chest pain/shortness of breath. Hx asthma but uses albuterol HFA only about once a week. can bring in her CPAP. Discussed with and seen by general surgery this morning -- no need for NGT at this time but recommends continued IV antibiotics, NPO/supportive care and continued monitoring for now. Patient already received dose of IV Zosyn and 1L NSS bolus with tylenol/zofran and famotidine push. WBC elevated to 13.9k, procal pending. Chemistries with Na 135, K 3.6. BUN/Cr 15/0.93, Glu 152. TB 2.7 with normal AST/ALT/ALP Discussed admitting for ongoing IV abx and monitoring and hopefully will be able to have conservative treatment. She inquired about oral contrast for any further imaging as she did have anaphylactic reaction in the past with contrast for her kidney stone. No PO intake discussed at this time/bowel rest discussed. Questions/concerns addressed at this time. Allergies Allergy/AdvReac Type Severity Reaction Status Date / Time Iodinated Contrast Media Allergy Severe Anaphylaxis Verified 06/09/22 14:41 pine nut Allergy Intermediate Mouth Verified 06/09/22 14:41 itching walnut Allergy Intermediate Mouth Verified 06/09/22 14:41 itching tamsulosin [From Flomax] AdvReac Verified 06/09/22 14:41 SEVERAL FRUITS Allergy Intermediate Mouth Uncoded 06/09/22 14:41 itching Home Medications Medication Instructions Recorded Confirmed Type cholecalciferol (vitamin D3) 25 1,000 units PO QAM 02/26/19 06/09/22 History mcg (1,000 unit) tablet cinnamon bark 500 mg capsule 500 mg PO QAM 02/26/19 06/09/22 History (Cinnamon) aspirin 81 mg tablet,delayed 81 mg PO QAM 03/20/19 06/09/22 History release coQ10 (ubiquinol) 200 mg capsule 200 mg PO PM 01/17/21 06/09/22 History lactobacillus combination no.4 3 3,000 mmu cells PO PM 01/17/21 06/09/22 History billion cell capsule (Probiotic) vitamin B complex 1 tab PO PM 01/17/21 06/09/22 History beclomethasone dipropionate 80 2 inh intranasal DAILY #10.6 grams 05/20/21 06/09/22 Rx mcg/actuation nasal HFA inhaler (QNASL) nitroglycerin 0.4 mg sublingual 0.4 mg sublingual Q5M PRN Chest 09/08/21 06/09/22 Rx tablet Pain #30 tabs metoprolol tartrate 25 mg tablet 25 mg PO BID #180 tabs 09/24/21 06/09/22 Rx omeprazole 20 mg capsule,delayed 20 mg PO PM #90 caps 09/24/21 06/09/22 Rx release olmesartan 40 mg tablet 40 mg PO DAILY #90 tabs 12/07/21 06/09/22 Rx albuterol sulfate 90 mcg/actuation 2 puff inhalation Q4H PRN 06/07/22 06/09/22 Rx aerosol inhaler (Ventolin HFA) Shortness Of Breath #1 inhaler ezetimibe 10 mg tablet 10 mg PO DAILY #90 tabs 06/09/22 06/09/22 Rx fluconazole 150 mg tablet 150 mg PO .COMPLEX #1 tab 06/24/22 Rx (Diflucan) nitrofurantoin macrocrystal 100 mg 100 mg PO .COMPLEX #10 caps 06/24/22 Rx capsule estradiol 0.01% (0.1 mg/gram) 1 g vaginal 2XWK #42.5 grams 07/15/22 07/15/22 Rx vaginal cream (Estrace) mometasone 220 mcg/actuation(60 1 inh inhalation BID PRN wheezing 07/15/22 07/15/22 Rx doses) breath activated powder #1 inhaler inhaler (Asmanex Twisthaler) nitrofurantoin macrocrystal 100 mg 100 mg PO BID #20 caps 09/23/22 09/23/22 Rx capsule Past Med/Surg History Medical History Anemia Arthritis Asthma CAD (coronary artery disease) stent x1 (2016) Generalized osteoarthritis of hand History of multiple miscarriages 2 miscarriaged and two tubal hx of D&E HTN (hypertension) Hx of Teran's palsy Left side r/t Lyme disease (2019) Hyperlipidemia Lyme disease Myalgia Residual d/t Lyme disease (2019) Nephrolithiasis Obesity REJI (obstructive sleep apnea) CPAP Thoracic aortic aneurysm 4.[address] scan 03/2017; stable on echo 01/2020, under surveillance by [facility] [place] [facility] (Dr. Mitchell) Surgical History H/O heart artery stent stent x1 (2016) History of colonoscopy (2008) History of tonsillectomy and adenoidectomy History of total abdominal hysterectomy DEYVI BSO History of tubal ligation Family History Other Asthma Denies family history of Ovarian cancer Breast cancer Colorectal cancer Uterine cancer Social History Smoking Status: Never smoker Second Hand Exposure: No; Do You Dip or Chew Tobacco: No; Tobacco Cessation Education Requested by Patient: No Hx Alcohol Use: Yes Alcohol type: wine Alcohol type Comment: 2-3 glasses of wine per night Alcohol Intake Frequency Comment: nightly Hx Substance Use: No Preferred Language: Yi Communication Ability: Effective Control Equipment Electrician Required: No Beliefs That Will Affect Care: None marital status: Current Living Situation: Spouse current occupational status: retired current occupation: dental hygenist Other Information That Helps Us Care for You: No Feels Safe at Home: Yes Safety Concerns: Feels Safe At This Time Assistive Devices: None Review of Systems Review of Systems: All systems reviewed & are unremarkable except as noted in HPI & below Physical Exam Physical Exam: General: WD female sitting up in bed, at bedside, NAD but mildly uncomfortable with position changes HEENT: head normocephalic, atraumatic, mm slightly dry, thick neck, no JVD, no NGT present Resp: CTA, no w/c, on room air CV: RRR, no significant m/r/g, no pitting edema GI: +BS hyperactive LLQ, decreased BS RUQ/RLQ, moderate-sig tenderness to palpation RLQ, mild-mod tenderness palpation RUQ, voluntary guarding but no rigidity/peritoneal signs GI: no palmer MSK/Neuro: moves all extremities, no focal deficits R knee prior surgical scar well healed, no evidence for infection Psych: alert/oriented, pleasant and cooperative Skin: cool, dry Results & Data Results & Data ([facility]) Vital Signs (Past 12 Hours) Vital Signs Temp Pulse Pulse Resp BP BP Pulse Ox 09/27/22 11:56 73 18 141/72 H 97 09/27/22 09:49 09/27/22 09:29 37.1 C 95 H 20 138/83 96 O2 Del Method 09/27/22 11:56 Room Air 09/27/22 09:49 Room Air 09/27/22 09:29 Room Air Laboratory Results 09/27/22 09/27/22 09/27/22 Range/Units 09:56 09:39 09:39 WBC (4.8-10.8) K/ul RBC (4.20-5.40) M/uL Hgb (12.0-16.0) g/dl Hct (37.0-47.0) % MCV (80.0-100.0) fL MCH (25.0-34.0) pg MCHC (32.0-36.0) g/dL RDW Std Deviation (36.4-46.3) fL RDW Coeff of Priscilla (11.5-14.5) % Plt Count (130-400) K/uL MPV (9.4-12.4) fL Immature Gran % (Auto) % Neut % (Auto) % Lymph % (Auto) % Garvin % (Auto) % Eos % (Auto) % Baso % (Auto) % Neut # (Auto) (1.40-6.50) K/uL Lymph # (Auto) (1.2-3.4) K/uL Garvin # (Auto) (0.11-0.59) K/uL Eos # (Auto) (0-0.50) K/uL Baso # (Auto) (0-0.2) K/uL Immature Gran # (Auto) (0.01-0.20) K/uL Sodium 135 L (136-145) mmol/L Potassium 3.6 (3.5-5.1) mmol/L Chloride 101 (98-107) mmol/L Carbon Dioxide 23 (21-32) mmol/L Anion Gap 11 (3-11) BUN 15 (6-23) mg/dl Creatinine 0.93 (0.6-1.2) mg/dl Est Cr Clr Drug Dosing 70.9 ml/min Est GFR ( Amer) 73.7 ml/min Est GFR (Non-Af Amer) 63.6 ml/min BUN/Creatinine Ratio 16.1 (10-20) Glucose 152 H (70-99(Fasting)) mg/dl Calcium 9.7 (8.5-10.1) mg/dl Total Bilirubin 2.7 H (0.2-1.0) mg/dl AST 18 (13-39) U/L ALT 21 (7-52) U/L Alkaline Phosphatase 75 (34-104) U/L Total Protein 7.8 (6.0-8.3) gm/dl Albumin 4.2 (3.4-5.0) gm/dl Globulin 3.6 (2.5-4.0) gm/dl Albumin/Globulin Ratio 1.2 (0.9-2) Lipase 23 (11-82) U/L Procalcitonin Pending SARS-CoV-2 (PCR) NEGATIVE (Negative) Influenza Type A (PCR) Negative (Neg) Influenza Type B (PCR) Negative (Neg) RSV (RT-PCR) Negative (Neg) 09/27/22 Range/Units 09:39 WBC 13.91 H (4.8-10.8) K/ul RBC 4.33 (4.20-5.40) M/uL Hgb 12.9 (12.0-16.0) g/dl Hct 39.0 (37.0-47.0) % MCV 90.1 (80.0-100.0) fL MCH 29.8 (25.0-34.0) pg MCHC 33.1 (32.0-36.0) g/dL RDW Std Deviation 41.6 (36.4-46.3) fL RDW Coeff of Priscilla 12.5 (11.5-14.5) % Plt Count 286 (130-400) K/uL MPV 10.5 (9.4-12.4) fL Immature Gran % (Auto) 0.8 % Neut % (Auto) 89.2 % Lymph % (Auto) 6.1 % Garvin % (Auto) 3.7 % Eos % (Auto) 0.1 % Baso % (Auto) 0.1 % Neut # (Auto) 12.40 H (1.40-6.50) K/uL Lymph # (Auto) 0.85 L (1.2-3.4) K/uL Garvin # (Auto) 0.52 (0.11-0.59) K/uL Eos # (Auto) 0.01 (0-0.50) K/uL Baso # (Auto) 0.02 (0-0.2) K/uL Immature Gran # (Auto) 0.11 (0.01-0.20) K/uL Sodium (136-145) mmol/L Potassium (3.5-5.1) mmol/L Chloride (98-107) mmol/L Carbon Dioxide (21-32) mmol/L Anion Gap (3-11) BUN (6-23) mg/dl Creatinine (0.6-1.2) mg/dl Est Cr Clr Drug Dosing ml/min Est GFR ( Amer) ml/min Est GFR (Non-Af Amer) ml/min BUN/Creatinine Ratio (10-20) Glucose (70-99(Fasting)) mg/dl Calcium (8.5-10.1) mg/dl Total Bilirubin (0.2-1.0) mg/dl AST (13-39) U/L ALT (7-52) U/L Alkaline Phosphatase (34-104) U/L Total Protein (6.0-8.3) gm/dl Albumin (3.4-5.0) gm/dl Globulin (2.5-4.0) gm/dl Albumin/Globulin Ratio (0.9-2) Lipase (11-82) U/L Procalcitonin SARS-CoV-2 (PCR) (Negative) Influenza Type A (PCR) (Neg) Influenza Type B (PCR) (Neg) RSV (RT-PCR) (Neg) Diagnostic Findings Abdomen/Pelvis CT 09/27/22 09:52 CT SCAN OF THE ABDOMEN AND PELVIS WITHOUT IV CONTRAST CLINICAL HISTORY: Generalized abdominal pain. Nausea and diarrhea COMPARISON STUDY: Abdominal CT dated 01/17/2021 TECHNIQUE: CT scan of the abdomen and pelvis is performed from the lung bases to the proximal femora. Images are reviewed in the axial, sagittal, and coronal planes. IV contrast was not administered for this examination. Note that the examination was performed in suboptimal fashion without oral and IV contrast. A dose lowering technique was utilized adhering to the principles of ALARA. CT DOSE: 1093.09 mGy.cm FINDINGS: Lung bases: The heart is top normal in size and without pericardial effusion. The coronary arteries are densely calcified. There is elevation of the right hemidiaphragm and bibasilar atelectasis. No airspace consolidation or pleural effusion is identified. A small hiatal hernia is noted. Liver: The unenhanced liver is enlarged, measuring 20.2 cm in length. The liver demonstrates diffusely diminished attenuation indicating steatosis. There is no intrahepatic biliary ductal dilatation. Gallbladder: A large calcified gallstone measures at least 2.7 cm. There is no CT evidence of acute cholecystitis. Spleen: Normal in size and attenuation. Pancreas: Unremarkable. Adrenal glands: Unremarkable. Kidneys: The unenhanced kidneys are normal in size and without hydronephrosis. There are no renal calculi identified. There is no evidence of contour deforming renal mass lesion. A circumaortic left renal vein is incidentally noted. Abdominal vasculature: The abdominal aorta is normal in course and caliber noting mild atherosclerotic calcification. Bowel: The proximal small bowel loops are distended and fluid-filled, measuring up to 4.8 cm in diameter. A transition point is identified in the ilium on axial image #13. The distal small bowel and colon are decompressed, and the appearance is consistent with a small bowel obstruction. There is trace interloop fluid. No pneumatosis intestinalis or portal venous gas is seen. There is moderate sigmoid diverticulosis. There is wall thickening with inflammation and fluid identified around the sigmoid colon consistent with acute diverticulitis. A fistulous tract is seen extending anteriorly from the sigmoid colon on image #411. There may be an enterocolic fistula on axial image #388. No organized fluid collection is seen to indicate abscess. The appendix is well-visualized and normal. Peritoneum: There is no intraperitoneal free air or abdominal ascites. There is a fat-containing umbilical hernia. Lymphadenopathy: None. Pelvic viscera: The bladder is decompressed and not well evaluated. The uterus is surgically absent. No adnexal lesion is seen. Skeletal structures: The skeletal structures are osteopenic. There is moderate lumbosacral spondylosis. No lytic or blastic lesions are seen. IMPRESSION: 1. There is a small bowel obstruction. A transition point is identified involving the ileum and this may be on the basis of adhesions. 2. Colonic diverticulosis with evidence of sigmoid diverticulitis. 3. There is significant inflammation around the sigmoid colon with developing fistulous tracts. There may be an enterocolic fistula with an adjacent loop of small bowel. Sigmoid diverticulitis does not represent the site of bowel obstruction. 4. The bladder is decompressed and not well evaluated. There is no clear CT evidence of colovesicular fistula at the time of examination. Correlate with urinalysis. 5. No organized fluid collection is seen to indicate abscess. 6. Hepatomegaly and hepatic steatosis. 7. Cholelithiasis. 8. Additional findings as above. ACT 112: Negative or not required by law. Electronically signed by: Jose Guadalupe Irene M.D. 09/27/2022 10:21 AM Supervising Physician Co-Signing Physician Notes I personally saw and examined the patient. I verified all almanza points and agree with Shannen Babcock PA-C with the following exceptions and/or additions: 67 year old female admission for nausea, vomiting and abdominal pain that started on Tuesday evening. O/E A&Ox3, non-septic appearing, HS RRR, no murmurs, Chest CTAB, Abdo generalized tenderness but worse on lower abdomen, guarding but no rebound tenderness, BS normal A/P Diverticulitis - Zosyn, NPO, will need very slow advancement in diet given likely lead to SBO SBO - NPO, IV fluids, Pain and anti-nausea medication, consult surgery PG Care Time/CCT Total # of Minutes Spent Total Time Spent with Patient: Total time spent is greater than 50% in coordination of care (as documented) at patient's floor/unit and/or counseling patient: Coding Level of Care Code 00890 INT INP/OBS CARE MIN Diagnoses Diverticulitis K57.92 Small bowel obstruction K56.609 CAD (coronary artery disease) I25.10 Associated angina: without angina Coronary Disease-Associated Artery/Lesion type: [place] artery [place] vs. transplanted heart: [place] heart Hyperlipidemia E78.5 Hyperlipidemia type: unspecified REJI (obstructive sleep apnea) G47.33 HTN (hypertension) I10 Hypertension type: unspecified Esophageal reflux K21.9 Esophagitis presence: without esophagitis Asthma J45.909 (3) CAD (coronary artery disease) Associated angina: without angina Coronary Disease-Associated Artery/Lesion type: [place] artery [place] vs. transplanted heart: [place] heart Qualified Code(s): I25.10 - Atherosclerotic heart disease of [place] coronary artery without angina pectoris (4) Hyperlipidemia Hyperlipidemia type: unspecified Qualified Code(s): E78.5 - Hyperlipidemia, unspecified (6) HTN (hypertension) Hypertension type: unspecified Qualified Code(s): I10 - Essential (primary) hypertension (7) Esophageal reflux Esophagitis presence: without esophagitis Qualified Code(s): K21.9 - Gastro- esophageal reflux disease without esophagitis
--- NOTE | 2022-09-27 12:56 | Surgery Consultation ---
Date of Consultation September 27, 2022 Assessment & Plan (1) Small bowel obstruction: This is a 67yF with a PMH of HTN, asthma, CAD s/p stenting, REJI, GERD who presents to the [facility] ED on 09/27/22 with complaints of abdominal pain, nausea and diarrhea that started over the weekend. In the ER a CT a/p was obtained that revealed evidence of a small bowel obstruction with transition point is identified involving the ileum, evidence of sigmoid diverticulitis, with concern for possible enterocolic fistula. Interestingly they read the CT as the area of sigmoid diverticulitis does not represent the site of SBO. Patient's vital signs are stable. WBC 13.9. On exam patient's abdomen is soft, distended, with generalized tenderness to palpation throughout. Would give patient a trial of conservative management. Keep NPO with IVF for bowel rest and start IV abx for her diverticulitis. Hope to avoid surgical intervention. We will follow along closely. (2) Diverticulitis: Supervising Physician Co-Signing Physician Notes I personally saw and evaluated the patient with Ronna Ward PA-C and agree with the assessment and plan. 67-year-old female with acute diverticulitis, small bowel obstruction CT images and results personally viewed by myself, she does have a fair amount of inflammation around her sigmoid colon with no drainable abscess or pneumoperitoneum as well as dilated small bowel consistent with an obstruction She is without peritoneal signs and her vitals are stable, no plans for emergent operation at this time She is being admitted to the medical team, would recommend keeping n.p.o., starting IV antibiotics We will follow along for any worsening vitals or clinical exam History of Present Illness Reason for Consultation: Small bowel obstruction, diverticulitis History of Present Illness This is a 67yF with a PMH of HTN, asthma, CAD s/p stenting, REJI, GERD who presents to the [facility] ED on 09/27/22 with complaints of abdominal pain, nausea and diarrhea. Patient states her symptoms began on Tuesday evening. She thought it was maybe related to food poisoning. Her pain came in intermittent waves of severe discomfort throughout the abdomen. This was associated with nausea, no emesis, and bouts of watery diarrhea. She came into the ER due to ongoing symptoms. A CT a/p was obtained that revealed evidence of a small bowel obstruction with transition point is identified involving the ileum, evidence of sigmoid diverticulitis, with concern for possible enterocolic fistula. The area of sigmoid diverticulitis does not represent the site of SBO. Patient's past surgical history includes a hysterectomy. Allergies Allergy/AdvReac Type Severity Reaction Status Date / Time Iodinated Contrast Media Allergy Severe Anaphylaxis Verified 06/09/22 14:41 pine nut Allergy Intermediate Mouth Verified 06/09/22 14:41 itching walnut Allergy Intermediate Mouth Verified 06/09/22 14:41 itching tamsulosin [From Flomax] AdvReac Verified 06/09/22 14:41 SEVERAL FRUITS Allergy Intermediate Mouth Uncoded 06/09/22 14:41 itching Home Medications Medication Instructions Recorded Confirmed Type cholecalciferol (vitamin D3) 25 1,000 units PO QAM 02/26/19 06/09/22 History mcg (1,000 unit) tablet cinnamon bark 500 mg capsule 500 mg PO QAM 02/26/19 06/09/22 History (Cinnamon) aspirin 81 mg tablet,delayed 81 mg PO QAM 03/20/19 06/09/22 History release coQ10 (ubiquinol) 200 mg capsule 200 mg PO PM 01/17/21 06/09/22 History lactobacillus combination no.4 3 3,000 mmu cells PO PM 01/17/21 06/09/22 History billion cell capsule (Probiotic) vitamin B complex 1 tab PO PM 01/17/21 06/09/22 History beclomethasone dipropionate 80 2 inh intranasal DAILY #10.6 grams 05/20/21 06/09/22 Rx mcg/actuation nasal HFA inhaler (QNASL) nitroglycerin 0.4 mg sublingual 0.4 mg sublingual Q5M PRN Chest 09/08/21 06/09/22 Rx tablet Pain #30 tabs metoprolol tartrate 25 mg tablet 25 mg PO BID #180 tabs 09/24/21 06/09/22 Rx omeprazole 20 mg capsule,delayed 20 mg PO PM #90 caps 09/24/21 06/09/22 Rx release olmesartan 40 mg tablet 40 mg PO DAILY #90 tabs 12/07/21 06/09/22 Rx albuterol sulfate 90 mcg/actuation 2 puff inhalation Q4H PRN 06/07/22 06/09/22 Rx aerosol inhaler (Ventolin HFA) Shortness Of Breath #1 inhaler ezetimibe 10 mg tablet 10 mg PO DAILY #90 tabs 06/09/22 06/09/22 Rx fluconazole 150 mg tablet 150 mg PO .COMPLEX #1 tab 06/24/22 Rx (Diflucan) nitrofurantoin macrocrystal 100 mg 100 mg PO .COMPLEX #10 caps 06/24/22 Rx capsule estradiol 0.01% (0.1 mg/gram) 1 g vaginal 2XWK #42.5 grams 07/15/22 07/15/22 Rx vaginal cream (Estrace) mometasone 220 mcg/actuation(60 1 inh inhalation BID PRN wheezing 07/15/22 07/15/22 Rx doses) breath activated powder #1 inhaler inhaler (Asmanex Twisthaler) nitrofurantoin macrocrystal 100 mg 100 mg PO BID #20 caps 09/23/22 09/23/22 Rx capsule Patient History Medical History Anemia Arthritis Asthma CAD (coronary artery disease) stent x1 (2016) Generalized osteoarthritis of hand History of multiple miscarriages 2 miscarriaged and two tubal hx of D&E HTN (hypertension) Hx of Teran's palsy Left side r/t Lyme disease (2019) Hyperlipidemia Lyme disease Myalgia Residual d/t Lyme disease (2019) Nephrolithiasis Obesity REJI (obstructive sleep apnea) CPAP Thoracic aortic aneurysm 4.3 [address] scan 03/2017; stable on echo 01/2020, under surveillance by [facility] cardiovascular (Dr. Mitchell) Surgical History H/O heart artery stent stent x1 (2016) History of colonoscopy (2008) History of tonsillectomy and adenoidectomy History of total abdominal hysterectomy DEYVI BSO History of tubal ligation Family History Other Asthma Denies family history of Ovarian cancer Breast cancer Colorectal cancer Uterine cancer Social History Smoking Status: Never smoker Second Hand Exposure: No; Hx Alcohol Use: Yes Alcohol type: wine Alcohol type Comment: 2-3 glasses of wine per night Alcohol Intake Frequency Comment: nightly Hx Substance Use: No Preferred Language: [place] Communication Ability: Effective Clinical Specialist Medical Device Required: No Beliefs That Will Affect Care: None marital status: Current Living Situation: Spouse current occupational status: retired current occupation: dental hygenist Feels Safe at Home: Yes Assistive Devices: Glasses Review of Systems Constitutional: + fever (subjective); no chills Respiratory: no dyspnea Cardiovascular: no chest pain Gastrointestinal: + abdominal pain (throughout abdomen), + nausea and + diarrhea/loose stools; no vomiting and no blood in stools Physical Exam Physical Exam: awake/alert Constitutional: + obese; no acute distress Respiratory: normal respiratory effort Gastrointestinal (Abdomen): Inspection/Auscultation: + abdomen distended Percussion/Palpation: + abdomen tender (generalized discomfort to palpation) and abdomen soft; abdomen not rigid Results & Data ([facility]) Vital Signs (Past 12 Hours) Vital Signs Temp Pulse Pulse Resp BP BP Pulse Ox 09/27/22 11:56 73 18 141/72 H 97 09/27/22 09:49 09/27/22 09:29 37.1 C 95 H 20 138/83 96 O2 Del Method 09/27/22 11:56 Room Air 09/27/22 09:49 Room Air 09/27/22 09:29 Room Air Diagnostic Findings CT SCAN OF THE ABDOMEN AND PELVIS WITHOUT IV CONTRAST CLINICAL HISTORY: Generalized abdominal pain. Nausea and diarrhea COMPARISON STUDY: Abdominal CT dated 01/17/2021 TECHNIQUE: CT scan of the abdomen and pelvis is performed from the lung bases to the proximal femora. Images are reviewed in the axial, sagittal, and coronal planes. IV contrast was not administered for this examination. Note that the examination was performed in suboptimal fashion without oral and IV contrast. A dose lowering technique was utilized adhering to the principles of ALARA. CT DOSE: 1093.09 mGy.cm FINDINGS: Lung bases: The heart is top normal in size and without pericardial effusion. The coronary arteries are densely calcified. There is elevation of the right hemidiaphragm and bibasilar atelectasis. No airspace consolidation or pleural effusion is identified. A small hiatal hernia is noted. Liver: The unenhanced liver is enlarged, measuring 20.2 cm in length. The liver demonstrates diffusely diminished attenuation indicating steatosis. There is no intrahepatic biliary ductal dilatation. Gallbladder: A large calcified gallstone measures at least 2.7 cm. There is no CT evidence of acute cholecystitis. Spleen: Normal in size and attenuation. Pancreas: Unremarkable. Adrenal glands: Unremarkable. Kidneys: The unenhanced kidneys are normal in size and without hydronephrosis. There are no renal calculi identified. There is no evidence of contour deforming renal mass lesion. A circumaortic left renal vein is incidentally noted. Abdominal vasculature: The abdominal aorta is normal in course and caliber noting mild atherosclerotic calcification. Bowel: The proximal small bowel loops are distended and fluid-filled, measuring up to 4.8 cm in diameter. A transition point is identified in the ilium on axial image #13. The distal small bowel and colon are decompressed, and the appearance is consistent with a small bowel obstruction. There is trace interloop fluid. No pneumatosis intestinalis or portal venous gas is seen. There is moderate sigmoid diverticulosis. There is wall thickening with inflammation and fluid identified around the sigmoid colon consistent with acute diverticulitis. A fistulous tract is seen extending anteriorly from the sigmoid colon on image #411. There may be an enterocolic fistula on axial image #388. No organized fluid collection is seen to indicate abscess. The appendix is well-visualized and normal. Peritoneum: There is no intraperitoneal free air or abdominal ascites. There is a fat-containing umbilical hernia. Lymphadenopathy: None. Pelvic viscera: The bladder is decompressed and not well evaluated. The uterus is surgically absent. No adnexal lesion is seen. Skeletal structures: The skeletal structures are osteopenic. There is moderate lumbosacral spondylosis. No lytic or blastic lesions are seen. IMPRESSION: 1. There is a small bowel obstruction. A transition point is identified involving the ileum and this may be on the basis of adhesions. 2. Colonic diverticulosis with evidence of sigmoid diverticulitis. 3. There is significant inflammation around the sigmoid colon with developing fistulous tracts. There may be an enterocolic fistula with an adjacent loop of small bowel. Sigmoid diverticulitis does not represent the site of bowel obstruction. 4. The bladder is decompressed and not well evaluated. There is no clear CT evidence of colovesicular fistula at the time of examination. Correlate with urinalysis. 5. No organized fluid collection is seen to indicate abscess. 6. Hepatomegaly and hepatic steatosis. 7. Cholelithiasis. 8. Additional findings as above. ACT 112: Negative or not required by law. Electronically signed by: Jose Guadalupe Irene M.D. 09/27/2022 10:21 AM PG Care Time/CCT Total # of Minutes Spent Total Time Spent with Patient: Total time spent is greater than 50% in coordination of care (as documented) at patient's floor/unit and/or counseling patient: Coding Level of Care Code 49034 INT INP/OBS CARE MIN Diagnoses Small bowel obstruction K56.609 Diverticulitis K57.92
[2022-09-27 13:53] LABS: Appearance Urine Clear (Clear); Bacteria Urine Automated Negative (Negative); Bilirubin Urine Negative (Negative); Blood Urine Trace (Negative); Color Urine Yellow; Epithelial Cell Urine Auto >30 /lpf (0-5); Glucose Urine UA Negative (Negative); Ketones Urine Negative (Negative); Leukocyte Esterase Urine Negative (Negative); Nitrite Urine Positive (Negative); Protein Urine Negative (Negative); RBC Urine Automated 0-4 /hpf (0-4); Specific Gravity Urine 1.013 (1.000-1.030); Urobilinogen Urine Negative (Negative)
[2022-09-27] MEDS ORDERED: METOPROLOL TARTRATE 1 MG/ML VIAL IV PRN (14:10)
[2022-09-27] MEDS ORDERED: ALBUTEROL HFA 8 GM INHALER INH PRN (14:10)
[2022-09-27] MEDS: ENOXAPARIN INJ 40 MG/0.4 ML SYR SQ SCH (14:53)
[2022-09-27 15:32] LABS: Albumin Level 4.2 gm/dl (3.4-5.0); Bilirubin,Total 2.7 mg/dl (0.2-1.0); Calcium 9.5 mg/dl (8.5-10.1); Magnesium 1.7 mg/dl (1.7-2.4); Potassium 3.9 mmol/L (3.5-5.1)
[2022-09-27 15:38] LABS: Albumin Globulin Ratio 1.6 (0.9-2); Est GFR (African American) 78.8 ml/min; Globulin 2.6 gm/dl (2.5-4.0); Total Protein 6.8 gm/dl (6.0-8.3)
[2022-09-27] MEDS: ACETAMINOPHEN 1,000 MG/100 ML VIAL IV PRN (16:42)
[2022-09-27] MEDS: PIPERACILLIN/TAZOBACTAM 3.375 GM in DEXTROSE 5% 100 ML IV SCH (17:50)
[2022-09-27] MEDS ORDERED: ACETAMINOPHEN 1,000 MG/100 ML VIAL IV PRN ×2 (18:00)
[2022-09-27] MEDS: MAGNESIUM SULFATE / D5W 1 GM/100 ML BAG IV SCH ×2 (21:39→23:30)
[2022-09-27] MEDS: ONDANSETRON INJ 2 MG/ML 2 ML VIAL IV PRN (23:47)
[2022-09-28] MEDS: PIPERACILLIN/TAZOBACTAM 3.375 GM in DEXTROSE 5% 100 ML IV SCH ×3 (01:34→17:21)
[2022-09-28] MEDS ORDERED: FAMOTIDINE 10 MG in SYRINGE 1.5 ML IV ONE (02:15)
[2022-09-28] MEDS: MoRPHine SULFATE 4 MG/ML 1 ML CARP\\VIAL IV PRN ×5 (04:05→20:51)
[2022-09-28] MEDS ORDERED: HYDROmorphone INJ 0.5 MG/0.5 ML SYR IV STA (04:22)
--- NOTE | 2022-09-28 04:24 | Communication Note ---
Date of Service: September 28, 2022 Worsened pain overnight, currently 10/10. Mild diffuse ttp, no rigidity. Ordering KUB to r/o perf. Next step would be NG tube. States has not passed flatus all day. Had reflux earlier in night, received tums for NG tube insertion unsuccessful. KUB w/ worsened dilated bowel loop. Can consider repeat CT abd, though last scan was yesterday. Dayshift to discuss w/ gen surg.
[2022-09-28] MEDS: LACTATED RINGER'S 1,000 ML IV SCH ×3 (05:15→17:30)
--- NOTE | 2022-09-28 07:53 | XRay Report ---
XR KUB/Abdomen 1 view CLINICAL HISTORY: 04/26 abd pain. SBO TECHNIQUE: 1 view of the abdomen was obtained. Comparison: Comparison is made to abdomen radiograph 09/17/2019 FINDINGS: Lung bases are unremarkable. Degenerative changes are seen in the visualized skeleton. Gas distended loops of small bowel measure up to 63 mm in diameter. A moderate amount of stool is noted within the large bowel. IMPRESSION: Findings compatible with continued small bowel obstruction. ACT 112: Negative or not required by law. Electronically signed by: Jose Elias Jalloh M.D. 09/28/2022 7:51 AM
[2022-09-28 08:22] LABS: Hematocrit (blood only) 34.4 % (37.0-47.0); Hemoglobin 11.2 g/dl (12.0-16.0); Mean Corpuscular Hemoglobin 29.8 pg (25.0-34.0); Mean Corpuscular Hgb Conc 32.6 g/dL (32.0-36.0); Mean Corpuscular Volume 91.5 fL (80.0-100.0); Mean Platelet Volume 10.5 fL (9.4-12.4); Platelet Count 233 K/uL (130-400); RDW Coefficient of Variation 12.7 % (11.5-14.5); RDW Standard Deviation 42.1 fL (36.4-46.3); Red Blood Count 3.76 M/uL (4.20-5.40); White Blood Count 4.89 K/ul (4.8-10.8)
[2022-09-28 08:25] LABS: Albumin Globulin Ratio 1.2 (0.9-2); Albumin Level 3.5 gm/dl (3.4-5.0); BUN Creatinine Ratio 17.1 (10-20); Bilirubin,Total 2.4 mg/dl (0.2-1.0); Calcium 8.3 mg/dl (8.5-10.1); Creatinine Clr Calc Pharmacy 89.7 ml/min; Est GFR (African American) 103.9 ml/min; Est GFR (Non-African American) 89.7 ml/min; Globulin 2.9 gm/dl (2.5-4.0); Magnesium 1.8 mg/dl (1.7-2.4); Potassium 3.4 mmol/L (3.5-5.1); Total Protein 6.4 gm/dl (6.0-8.3)
[2022-09-28 08:32] LABS: Basophils # (auto) 0.01 K/uL (0-0.2); Basophils % (auto) 0.2 %; Immature Granulocytes # (auto) 0.01 K/uL (0.01-0.20); Immature Granulocytes % (auto) 0.2 %; Lymphocytes # (auto) 0.35 K/uL (1.2-3.4); Lymphocytes % (auto) 7.2 %; Monocytes # (auto) 0.26 K/uL (0.11-0.59); Monocytes % (auto) 5.3 %; Neutrophils # (auto) 4.26 K/uL (1.40-6.50); Neutrophils % (auto) 87.1 %
--- NOTE | 2022-09-28 09:43 | XRay Report ---
XR KUB/Abdomen 1 view CLINICAL HISTORY: NG tube placement TECHNIQUE: 1 view of the abdomen was obtained. Comparison: Comparison is made to abdomen radiograph 09/28/2022 FINDINGS: Tip and side port of the enteric tube lie within the stomach. Degenerative changes are seen in the vi sualized skeleton. Partial visualization of numerous dilated loops of. No significant stool burden is seen. IMPRESSION: Satisfactory appearance of enteric tube with the tip and side-port within the stomach. ACT 112: Negative or not required by law. Electronically signed by: Jose Elias Jalloh M.D. 09/28/2022 9:42 AM
--- NOTE | 2022-09-28 09:51 | XRay Report ---
XR chest 1V portable HISTORY: to check NG tube position COMPARISON: Chest 06/23/2022. FINDINGS: Nasogastric tube terminates below the diaphragm with the tip curled within the fundus of th e stomach. No pneumothorax. The heart remains top normal in size. There are low lung volumes with a f ew bibasilar linear densities suggestive of subsegmental atelectasis. No new focal lung consolidation s to suggest a pneumonia. No evidence for pulmonary edema. No pleural effusions. IMPRESSION: Nasogastric tube terminates in the stomach. ACT 112: Negative or not required by law. Electronically signed by: Abraham Morocho M.D. 09/28/2022 9:50 AM
[2022-09-28] MEDS: PANTOprazole 40 MG in SYRINGE 0 ML IV SCH (10:14)
[2022-09-28] MEDS: ONDANSETRON INJ 2 MG/ML 2 ML VIAL IV PRN (10:18)
[2022-09-28] MEDS: FLUTICASONE PROPIONATE NA SPR 16 GM BTL SCH (10:21)
[2022-09-28] MEDS: POTASSIUM CHLORIDE / WTR 10 MEQ/100 ML PLCT IV SCH ×4 (10:44→14:13)
--- NOTE | 2022-09-28 10:51 | Surgery Progress Note ---
Date of Service September 28, 2022 Assessment & Plan (1) Small bowel obstruction: Plan: Patient here with evidence of both SBO and sigmoid diverticulitis- both unrelated founded on CT scan WBC 4.8. Continue to monitor vitals, slightly tachy with her pain Agree with NGT placement for symptoms, she is feeling improved since, however still with generalized abdominal discomfort Continue NPO/IVF and IV abx Will continue a trial of supportive care...if does not improve and develops worsening symptoms or deteriorates clinically will have to consider taking patient to the OR for exploratory laparotomy, possible bowel resection, possible colostomy formation (2) Diverticulitis: Admission and Anticipated Discharge Date Admission Date: September 27, 2022 Supervising Physician Co-Signing Physician Notes I personally saw and evaluated the patient with Ronna hernandez PA-C and agree with the assessment and plan. 67-year-old female with small bowel obstruction and diverticulitis Patient's pain is slightly worsened since admission, but does feel better after NG tube was placed She remains afebrile without a white count, however with worsening pain we will tentatively place her on the schedule for tomorrow for exploratory laparotomy, possible bowel resection, possible ostomy Subjective Patient with worsening pain early this AM, rating it a 10/10. Feels better now with NGT in place. No bowel function. Physical Exam Physical Exam: awake/alert Constitutional: + obese Respiratory: normal respiratory effort Gastrointestinal (Abdomen): Inspection/Auscultation: + abdomen distended Percussion/Palpation: + abdomen tender (generalized discomfort to palpation) and abdomen soft; abdomen not rigid Results & Data ([facility]) Vital Signs (Past 12 Hours) Vital Signs Temp Pulse Resp BP Pulse Ox O2 Del Method 09/28/22 10:44 Room Air 09/28/22 07:18 37.5 C 112 H 20 149/84 H 93 Room Air 09/28/22 03:54 36.5 C 97 H 20 147/86 H 93 CPAP 09/27/22 23:49 37.4 C 92 H 20 131/76 93 CPAP PG Care Time/CCT Total # of Minutes Spent Total Time Spent with Patient: Total time spent is greater than 50% in coordination of care (as documented) at patient's floor/unit and/or counseling patient: Coding Level of Care Code 82507 SUB INP/OBS CARE 08/11MIN Diagnoses Small bowel obstruction K56.609 Diverticulitis K57.22
--- NOTE | 2022-09-28 14:32 | Hospitalist Progress Note ---
Date of Service September 28, 2022 Assessment & Plan (1) Small bowel obstruction: Plan: Patient presented with nausea, abdominal pain CT showing small bowel obstruction Patient has a history of total abdominal hysterectomy but this is her first time episode of small bowel obstruction Currently being conservatively managed with bowel rest, IV fluids, NG suction General surgery involved Overnight, pain worsened requiring multiple IV doses of narcotics. However patient is feeling better now since the NG tube has been placed. Plan is to monitor clinically for now and continue conservative management. If however fails conservative management, surgery will be the next step. Monitor BMP Replete potassium Present on Admission?: Yes (2) Diverticulitis: Plan: CT abdomen also showed sigmoid diverticulitis Most likely unrelated to the bowel obstruction as it is in a different location Patient had leukocytosis and fever Continue IV Zosyn Follow blood cultures Continue n.p.o. Check stool PCR/C. difficile if able to collect stool sample. At this time patient has not had any bowel movement (3) CAD (coronary artery disease): Plan: Follows with Dr Mitchell, Hx CAD/HTN/HLD/mild ascending aorta dilation stable on echo/severe REJI on CPAP Hx NSTEMI -- 03/2017, thought secondary to small non revascularizable diagonal Multivessel CAD -- s/p PCI with ANGEL to mid LAD; moderate to severe non flow- limiting circumflex Holding olmesartan, metoprolol, atorvastatin unable to tolerate and on rosuvasatin/repatha -- also held while npo but mention she hasn't been taking statin due to myalgias (myalgia from chronic lyme reported as well) Place on tele, lopressor available prn BP stable EKG w/ CP Monitoring on telemetry (4) Hyperlipidemia: Plan: holding PO meds as above (5) REJI (obstructive sleep apnea): Plan: CPAP HS -- may use own machine if able to bring in (6) HTN (hypertension): Plan: hold PO meds lopressor available prn (7) Esophageal reflux: Plan: continue PPI IV daily while NPO (8) Asthma: Plan: continue usual home inhalers, albuterol HFA prn (uses ~1x/week) Admission and Anticipated Discharge Date Admission Date: September 27, 2022 Subjective Patient states that she had a rough night. She was in severe pain requiring several doses of IV narcotics. A repeat abdominal x-ray showed worsening. NG tube placement was attempted and failed initially. However, eventually, the NG tube was successfully placed. Review of Systems Review of Systems: All systems reviewed & are unremarkable except as noted in Subjective Physical Exam Physical Exam: General: Awake, conversant, NG tube in place. Patient appears tired. Heart: S1, S2/regular rate and rhythm, no murmur rubs or gallops Lungs: Clear to auscultation bilaterally. Normal effort Abdomen: Soft. Distended and tympanic. Moderate tenderness on palpation diffusely but most pronounced in the lower abdomen. No rebound, rigidity or guarding. No hepatosplenomegaly Extremities: No clubbing/cyanosis. No edema Behavior: Appropriate, cooperative Results & Data Results & Data ([facility]) Vital Signs (Past 12 Hours) Vital Signs Temp Pulse Resp BP Pulse Ox O2 Del Method 09/28/22 11:13 37.9 C H 118 H 20 152/84 H 93 Room Air 09/28/22 10:44 Room Air 09/28/22 07:18 37.5 C 112 H 20 149/84 H 93 Room Air 09/28/22 03:54 36.5 C 97 H 20 147/86 H 93 CPAP Laboratory Results Abnormal lab results 09/27/22 09/28/22 09/28/22 Range/Units 09:39 07:15 07:15 RBC 3.76 L (4.20-5.40) M/uL Hgb 11.2 L (12.0-16.0) g/dl Hct 34.4 L (37.0-47.0) % Lymph # (Auto) 0.35 L (1.2-3.4) K/uL Potassium 3.4 L (3.5-5.1) mmol/L Anion Gap 12 H (3-11) Glucose 148 H 128 H (70-99(Fasting)) mg/dl Calcium 8.3 L (8.5-10.1) mg/dl Total Bilirubin 2.7 H 2.4 H (0.2-1.0) mg/dl Diagnostic Findings KUB X-Ray 09/28/22 04:21 XR KUB/Abdomen 1 view CLINICAL HISTORY: 10 abd pain. SBO TECHNIQUE: 1 view of the abdomen was obtained. Comparison: Comparison is made to abdomen radiograph 09/17/2019 FINDINGS: Lung bases are unremarkable. Degenerative changes are seen in the visualized skeleton. Gas distended loops of small bowel measure up to 63 mm in diameter. A moderate amount of stool is noted within the large bowel. IMPRESSION: Findings compatible with continued small bowel obstruction. ACT 112: Negative or not required by law. Electronically signed by: Jose Elias Jalloh M.D. 09/28/2022 7:51 AM KUB X-Ray 09/28/22 09:01 XR KUB/Abdomen 1 view CLINICAL HISTORY: NG tube placement TECHNIQUE: 1 view of the abdomen was obtained. Comparison: Comparison is made to abdomen radiograph 09/28/2022 FINDINGS: Tip and side port of the enteric tube lie within the stomach. Degenerative changes are seen in the visualized skeleton. Partial visualization of numerous dilated loops of. No significant stool burden is seen. IMPRESSION: Satisfactory appearance of enteric tube with the tip and side-port within the stomach. ACT 112: Negative or not required by law. Electronically signed by: Jose Elias Jalloh M.D. 09/28/2022 9:42 AM Chest X-Ray 09/28/22 09:12 XR chest 1V portable HISTORY: to check NG tube position COMPARISON: Chest 06/23/2022. FINDINGS: Nasogastric tube terminates below the diaphragm with the tip curled within the fundus of the stomach. No pneumothorax. The heart remains top normal in size. There are low lung volumes with a few bibasilar linear densities suggestive of subsegmental atelectasis. No new focal lung consolidations to suggest a pneumonia. No evidence for pulmonary edema. No pleural effusions. IMPRESSION: Nasogastric tube terminates in the stomach. ACT 112: Negative or not required by law. Electronically signed by: Abraham Morocho M.D. 09/28/2022 9:50 AM PG Care Time/CCT Total # of Minutes Spent Total Time Spent: 35 Total Time Spent with Patient: I spent 35 minutes in the care of this patient. The time was spent in talking to the patient, nurse, care management team, market consultant: General surgery, reviewing the chart, formulating plan and placing the orders accordingly. Coding Level of Care Code 47634 SUB INP/OBS CARE 3/50MIN Diagnoses Small bowel obstruction K56.609 Diverticulitis K57.92 CAD (coronary artery disease) I25.10 Coronary Disease-Associated Artery/Lesion type: [place] artery [place] vs. transplanted heart: [place] heart Associated angina: without angina Hyperlipidemia E78.5 Hyperlipidemia type: unspecified REJI (obstructive sleep apnea) G47.33 HTN (hypertension) I10 Hypertension type: unspecified Esophageal reflux K21.9 Esophagitis presence: without esophagitis Asthma J45.909 (3) CAD (coronary artery disease) Coronary Disease-Associated Artery/Lesion type: [place] artery [place] vs. transplanted heart: [place] heart Associated angina: without angina Qualified Code(s): I25.10 - Atherosclerotic heart disease of [place] coronary artery without angina pectoris (4) Hyperlipidemia Hyperlipidemia type: unspecified Qualified Code(s): E78.5 - Hyperlipidemia, unspecified (6) HTN (hypertension) Hypertension type: unspecified Qualified Code(s): I10 - Essential (primary) hypertension (7) Esophageal reflux Esophagitis presence: without esophagitis Qualified Code(s): K21.9 - Gastro- esophageal reflux disease without esophagitis
[2022-09-28] MEDS: ENOXAPARIN INJ 40 MG/0.4 ML SYR SQ SCH (14:36)
[2022-09-28] MEDS: ACETAMINOPHEN 1,000 MG/100 ML VIAL IV PRN (17:14)
--- NOTE | 2022-09-28 19:37 | Communication Note ---
Date of Service: September 28, 2022 This is a 67-year-old female who is currently admitted with diverticulitis and a small bowel obstruction. The patient was noted to have some worsening abdominal pain earlier this morning and she had an NG tube placed. The patient notes that since the NG tube has been placed her abdominal pain has improved. She does not have any nausea or vomiting. She was noted to have some low-grade fevers throughout the day but denies any shakes or chills. Patient was noted to be tachycardic earlier today but this has improved. The patient was seen and examined at the bedside and her abdomen is soft without distention or rigidity. She does continue to have tenderness in the left lower quadrant. We will continue close monitoring of the patient. She is tentatively scheduled for exploratory laparotomy with Dr. Sue tomorrow.
[2022-09-29] MEDS: LACTATED RINGER'S 1,000 ML IV SCH ×4 (00:07→22:16)
--- NOTE | 2022-09-29 00:23 | Communication Note ---
Date of Service: September 29, 2022 Patient revisited at bedside. She notes she has continued pain in the left lower quadrant similar to what she noted during my prior visit but denies any w orsening abdominal pain. No nausea or vomiting has been noted. Most recent vitals show patient is hemodynamically stable without hypotension. Her pulse has improved to 80. Respirations are 20 nonlabored and she is now afebrile. Pulse ox is 90% on room air. On exam her abdomen is again soft and nonrigid. There is pain with palpation in the left lower quadrant similar to what was noted on prior exam. I did discuss with the RN who is attending to the patient she did not note any concerns at this time. We will continue close clinical monitoring
[2022-09-29] MEDS: MoRPHine SULFATE 4 MG/ML 1 ML CARP\\VIAL IV PRN ×3 (01:41→18:27)
[2022-09-29] MEDS: PIPERACILLIN/TAZOBACTAM 3.375 GM in DEXTROSE 5% 100 ML IV SCH ×3 (01:43→18:27)
[2022-09-29] MEDS ORDERED: CHLORASEPTIC 1.4% SOLN 180 ML BTL MT PRN (06:03)
--- NOTE | 2022-09-29 06:23 | Communication Note ---
Date of Service: September 29, 2022 Patient revisited at bedside. She reports that her abdominal pain remains present but is no worse. No nausea or vomiting. No episodes of hypotension noted. The patient has a slight tachycardia now with a heart rate in the 90s. She also continues to have some intermittent low-grade fevers. Abdominal exam remains unchanged as it is soft and nonrigid with tenderness in the left lower quadrant as noted before.
[2022-09-29 07:27] LABS: Basophils # (auto) 0.02 K/uL (0-0.2); Basophils % (auto) 0.3 %; Eosinophils # (auto) 0.15 K/uL (0-0.50); Eosinophils % (auto) 2.1 %; Hematocrit (blood only) 31.7 % (37.0-47.0); Hemoglobin 10.3 g/dl (12.0-16.0); Immature Granulocytes # (auto) 0.05 K/uL (0.01-0.20); Immature Granulocytes % (auto) 0.7 %; Lymphocytes # (auto) 0.72 K/uL (1.2-3.4); Lymphocytes % (auto) 10.3 %; Mean Corpuscular Hemoglobin 29.7 pg (25.0-34.0); Mean Corpuscular Hgb Conc 32.5 g/dL (32.0-36.0); Mean Corpuscular Volume 91.4 fL (80.0-100.0); Mean Platelet Volume 10.2 fL (9.4-12.4); Monocytes # (auto) 0.42 K/uL (0.11-0.59); Neutrophils # (auto) 5.64 K/uL (1.40-6.50); Neutrophils % (auto) 80.6 %; Platelet Count 234 K/uL (130-400); RDW Coefficient of Variation 12.5 % (11.5-14.5); RDW Standard Deviation 41.5 fL (36.4-46.3); Red Blood Count 3.47 M/uL (4.20-5.40)
[2022-09-29 07:47] LABS: Albumin Globulin Ratio 1.1 (0.9-2); Albumin Level 3.1 gm/dl (3.4-5.0); BUN Creatinine Ratio 15.6 (10-20); Bilirubin,Total 1.8 mg/dl (0.2-1.0); Calcium 8.3 mg/dl (8.5-10.1); Creatinine Clr Calc Pharmacy 105.3 ml/min; Est GFR (Non-African American) 92.3 ml/min; Globulin 2.8 gm/dl (2.5-4.0); Magnesium 1.7 mg/dl (1.7-2.4); Potassium 3.9 mmol/L (3.5-5.1); Total Protein 5.9 gm/dl (6.0-8.3)
--- NOTE | 2022-09-29 07:48 | Surgery Progress Note ---
Date of Service September 29, 2022 Assessment & Plan (1) Diverticulitis: Plan: Patient here with SBO and acute diverticulitis Pt was admitted to medical service and made NPO with IVF and started on IV abx. She was doing okay until yesterday AM she experienced acute worsening of her abdominal pain rating it an 10/10 in severity. An NGT was placed with improvement in symptoms. She has been intermittently tachycardic and febrile with stable blood pressures. She is feeling mild improvement in symptoms since NGT placement, however still uncomfortable with ttp primarily in the LLQ This AM WBC 7. BMP is pending. Temp 99F, HR 90s', BP 168/70. On exam abdomen softly distended with generalized discomfort in the abdomen, but primarily in the LLQ. Discussed with patient that we placed the patient on the schedule for an exlap, possible bowel resection, possible ostomy formation for today if she did not have vast improvement in her symptoms/vitals/exam. She is agreeable with the plan Continue NPO/IVF/NGT/IV Abx. Please let us know if patient has any major changes in her status prior to taking her to the OR later this morning (2) Small bowel obstruction: Admission and Anticipated Discharge Date Admission Date: September 27, 2022 Supervising Physician Co-Signing Physician Notes I personally saw and evaluated the patient with Ronna Ward PA-C and agree with the assessment and plan. 67-year-old female with small bowel obstruction and diverticulitis KUB images and results personally viewed by myself on this morning She remains with a persistent small bowel obstruction as well as fevers and low- grade tachycardia, likely from her diverticulitis I think at this point she has had no improvement over about 48 hours and operative intervention is indicated We will proceed with exploratory laparotomy, possible bowel resection, possible ostomy, possible wound VAC today Consent was obtained, risk discussed including bleeding, infection, leak, abscess, injury to surrounding structures Subjective Patient reports feeling mild improvement in her symptoms since yesterday. Still fairly tender in the abdomen. Mild nausea this AM despite NGT. No bowel function. Physical Exam Physical Exam: awake/alert Respiratory: normal respiratory effort Gastrointestinal (Abdomen): Inspection/Auscultation: + abdomen distended (mild) Percussion/Palpation: + abdomen tender (ttp generalized abdomen, but primarily in the LLQ) and abdomen soft; abdomen not rigid NGT draining green output- 725 since yesterday Results & Data ([facility]) Vital Signs (Past 12 Hours) Vital Signs Temp Pulse Pulse Resp BP Pulse Ox O2 Del Method 09/29/22 02:57 95 Nasal Cannula 09/29/22 02:51 37.6 C H 98 H 16 168/78 H 88 L Room Air 09/29/22 00:14 80 09/28/22 22:48 37.4 C 99 H 20 155/74 H 90 Room Air 09/28/22 21:03 Room Air O2 Flow Rate 09/29/22 02:57 2 09/29/22 02:51 09/29/22 00:14 09/28/22 22:48 09/28/22 21:03 PG Care Time/CCT Total # of Minutes Spent Total Time Spent with Patient: Total time spent is greater than 50% in coordination of care (as documented) at patient's floor/unit and/or counseling patient: Coding Level of Care Code 11204 SUB INP/OBS CARE 2/35MIN Diagnoses Diverticulitis K57.92 Small bowel obstruction K56.609
[2022-09-29] MEDS: FLUTICASONE PROPIONATE NA SPR 16 GM BTL SCH (08:02)
[2022-09-29] MEDS: ONDANSETRON INJ 2 MG/ML 2 ML VIAL IV PRN ×2 (08:04→18:30)
--- NOTE | 2022-09-29 09:32 | Anesthesiology Consultation ---
Date of Service September 29, 2022 Assessment & Plan (1) Encounter for pre-operative examination: Chart Review Chart Review: Acceptable Risk for Surgery History Surgery Operation Date: 09/29/22 10:40 Proposed Procedures p Exploratory Laparotomy, Possible Bowel Resection, Possible Ostomy - Holden Sue DO Height/Weight Height: 5 ft 6 in Weight: 106.5 kg Allergies Allergy/AdvReac Type Severity Reaction Status Date / Time Iodinated Contrast Media Allergy Severe Anaphylaxis Verified 06/09/22 14:41 pine nut Allergy Intermediate Mouth Verified 06/09/22 14:41 itching walnut Allergy Intermediate Mouth Verified 06/09/22 14:41 itching avocado Allergy Verified 09/28/22 11:34 banana Allergy Verified 09/28/22 11:34 cantaloupe Allergy Verified 09/28/22 11:34 kiwi Allergy Verified 09/28/22 11:34 pineapple Allergy Verified 09/28/22 11:34 tamsulosin [From Flomax] AdvReac Verified 06/09/22 14:41 Medications Home Medications Medication Instructions Recorded Confirmed Last Taken cholecalciferol (vitamin D3) 25 1,000 units PO QAM 02/26/19 06/09/22 02/18/21 21:00 mcg (1,000 unit) tablet cinnamon bark 500 mg capsule 500 mg PO QAM 02/26/19 06/09/22 02/18/21 07:00 (Cinnamon) aspirin 81 mg tablet,delayed 81 mg PO QAM 03/20/19 06/09/22 02/19/21 07:00 release coQ10 (ubiquinol) 200 mg capsule 200 mg PO PM 01/17/21 06/09/22 02/18/21 19:00 lactobacillus combination no.4 3 3,000 mmu cells PO PM 01/17/21 06/09/22 02/18/21 21:00 billion cell capsule (Probiotic) vitamin B complex 1 tab PO PM 01/17/21 06/09/22 02/18/21 21:00 beclomethasone dipropionate 80 2 inh intranasal DAILY #10.6 grams 05/20/21 1 08/09/21 Unknown mcg/actuation nasal HFA inhaler (QNASL) nitroglycerin 0.4 mg sublingual 0.4 mg sublingual Q5M PRN Chest 09/08/21 06/09/22 Unknown tablet Pain #30 tabs metoprolol tartrate 25 mg tablet 25 mg PO BID #180 tabs 09/24/21 06/09/22 Unknown omeprazole 20 mg capsule,delayed 20 mg PO PM #90 caps 09/24/21 06/09/22 Unknown release olmesartan 40 mg tablet 40 mg PO DAILY #90 tabs 12/07/21 06/09/22 Unknown albuterol sulfate 90 mcg/actuation 2 puff inhalation Q4H PRN 06/07/22 06/09/22 Unknown aerosol inhaler (Ventolin HFA) Shortness Of Breath #1 inhaler ezetimibe 10 mg tablet 10 mg PO DAILY #90 tabs 06/09/22 06/09/22 Unknown fluconazole 150 mg tablet 150 mg PO .COMPLEX #1 tab 06/24/22 Unknown (Diflucan) nitrofurantoin macrocrystal 100 mg 100 mg PO .COMPLEX #10 caps 06/24/22 Unknown capsule estradiol 0.01% (0.1 mg/gram) 1 g vaginal 2XWK #42.5 grams 07/15/22 07/15/22 Unknown vaginal cream (Estrace) mometasone 220 mcg/actuation(60 1 inh inhalation BID PRN wheezing 07/15/22 07/15/22 Unknown doses) breath activated powder #1 inhaler inhaler (Asmanex Twisthaler) nitrofurantoin macrocrystal 100 mg 100 mg PO BID #20 caps 09/23/22 09/23/22 Unknown capsule Active Medications Generic Name Dose Route Start Last Admin Trade Name Freq PRN Reason Stop Dose Admin Enoxaparin Sodium 40 mg 09/27/22 14:10 09/28/22 14:36 Enoxaparin Inj 40 Mg/0.4 Ml Syr SQ 10/27/22 14:09 40 mg Q24H JACKIE Administration Fluticasone Propionate 2 sprays 09/28/22 09:00 09/29/22 08:02 Fluticasone Propionate Na Spr 16 Gm Btl NA 10/28/22 08:59 Not Given DAILY JACKIE Protocol Lactated Ringer's 1,000 mls @ 150 mls/hr 09/27/22 11:15 09/29/22 05:57 Lr IV 10/27/22 11:14 150 mls/hr .Q6H40M JACKIE Administration Piperacillin Sod/Tazobactam 115 mls @ 28.75 mls/hr 09/27/22 18:00 09/29/22 09:16 Sod 3.375 gm/ Dextrose IV 10/07/22 17:59 28.8 mls/hr Q8H JACKIE Administration Protocol Pantoprazole Sodium 40 mg/ 10 mls @ 5 mls/min 09/28/22 11:00 09/28/22 10:14 Syringe IV 10/28/22 10:59 5 mls/min DAILY@1100 JACKIE Administration Acetaminophen 1,000 mg in 100 mls @ 400 mls/hr 09/27/22 16:35 09/28/22 17:29 Ofirmev IV 09/30/22 16:34 Infused Q8H PRN Infusion pain or fever Morphine Sulfate 4 mg 09/27/22 11:08 09/29/22 08:03 Morphine Sulfate 4 Mg/Ml 1 Ml Carp\Vial IV 10/11/22 11:07 4 mg Q2H PRN Administration Severe Pain (Rating 7,8,9,10) Morphine Sulfate 2 mg 09/27/22 11:08 09/27/22 14:50 Morphine Sulfate 2 Mg/Ml Carp IV 10/11/22 11:07 2 mg Q2H PRN Administration Moderate Pain (Rating 3,4,5,6) Ondansetron HCl 4 mg 09/27/22 23:23 09/29/22 08:04 Ondansetron Inj 2 Mg/Ml 2 Ml Vial IV 10/27/22 23:22 4 mg Q6H PRN Administration Nausea NPO Date Last Intake of Fluids: 09/28/22 Time Last Intake of Fluids: 09:00 Date Last Intake of Solids: 09/28/22 Time Last Intake of Solids: 09:00 Past Medical History Medical History Anemia Arthritis Asthma CAD (coronary artery disease) stent x1 (2016) Generalized osteoarthritis of hand History of multiple miscarriages 2 miscarriaged and two tubal hx of D&E HTN (hypertension) Hx of Teran's palsy Left side r/t Lyme disease (2019) Hyperlipidemia Lyme disease Myalgia Residual d/t Lyme disease (2019) Nephrolithiasis Obesity REJI (obstructive sleep apnea) CPAP Thoracic aortic aneurysm 4.[address] scan 03/2017; stable on echo 01/2020, under surveil al[place] by [facility] [place] [facility] (Dr. Mitchell) Past Family History Family History Other Asthma Denies family history of Ovarian cancer Breast cancer Colorectal cancer Uterine cancer Past Surgical History Surgical History H/O heart artery stent stent x1 (2016) History of colonoscopy (2008) History of tonsillectomy and adenoidectomy History of total abdominal hysterectomy DEYVI BSO History of tubal ligation Social History Smoking Status: Never smoker Do You Dip or Chew Tobacco: No Hx Alcohol Use: Yes Alcohol type: wine alcohol intake frequency: 0-2 drinks per day Hx Substance Use: No substance use type: does not use Last Used Substance Other:: THC/CBD cream for arthritis Physical Exam Vital Signs Last Vital Signs Temp 37.7 C H 09/29/22 08:20 Pulse 93 H 09/29/22 08:20 Resp 18 09/29/22 08:20 BP 148/87 H 09/29/22 08:20 Pulse Ox 95 09/29/22 08:20 O2 Del Method Room Air 09/29/22 08:20 O2 Flow Rate 2 09/29/22 02:57 Testing Laboratory Results 09/29/22 07:03 09/29/22 07:03 Urine Color Yellow 09/27/22 13:27 Urine Appearance Clear (Clear) 09/27/22 13:27 Urine pH 6.0 (4.5-7.5) 09/27/22 13:27 Ur Specific [place] 1.013 (1.000-1.030) 09/27/22 13:27 Urine Protein Negative (Negative) 09/27/22 13:27 Urine Glucose (UA) Negative (Negative) 09/27/22 13:27 Urine Ketones Negative (Negative) 09/27/22 13:27 Urine Nitrite Positive (Negative) A 09/27/22 13:27 Ur Leukocyte Esterase Negative (Negative) 09/27/22 13:27 Urine WBC (Auto) 5-10 /hpf (0-5) H 09/27/22 13:27 Urine RBC (Auto) 0-4 /hpf (0-4) 09/27/22 13:27 U Hyaline Cast (Auto) 1-5 /lpf (0-5) 09/27/22 13:27 U Epithel Cells (Auto) >30 /lpf (0-5) H 09/27/22 13:27 Urine Bacteria (Auto) Negative (Negative) 09/27/22 13:27 Blood Type A Positive 09/28/22 07:15 Antibody Screen NEGATIVE 09/28/22 07:15 09/27/22 11:18 Aerobic Blood Culture - Preliminary Blood No growth in Aerobic bottle after 24 hours. Anaerobic Blood Culture - Preliminary No growth in Anaerobic bottle after 24 hours. 09/27/22 11:18 Aerobic Blood Culture - Preliminary Blood No growth in Aerobic bottle after 24 hours. Anaerobic Blood Culture - Preliminary No growth in Anaerobic bottle after 24 hours. Electrocardiogram Date: 09/28/22 Findings: + NSR @ (81) Echocardiogram Date: 09/28/22 EF: 55-60% LV Function: normal Valvular Disease: + no significant valvular disease
[2022-09-29] MEDS ORDERED: PROPOFOL IV EMULSION 10 MG/ML 20 ML VIAL IV ONE (09:40)
[2022-09-29] MEDS ORDERED: DEXAMETHASONE SOD INJ 4 MG/ML VIAL ONE (09:40)
[2022-09-29] MEDS ORDERED: ONDANSETRON INJ 2 MG/ML 2 ML VIAL ONE ×2 (09:40→14:10)
[2022-09-29] MEDS ORDERED: fentaNYL citrate PF 100 MCG/2 ML VIAL ONE (09:41)
[2022-09-29] MEDS ORDERED: MIDAZOLAM HCL 1 MG/ML 2ML VIAL ONE (09:41)
--- NOTE | 2022-09-29 09:50 | XRay Report ---
KUB HISTORY: Bowel obstruction. Follow-up. follow obstruction COMPARISON: KUB 09/28/2022. Abdomen and pelvis CT 09/27/2022. FINDINGS: Nasogastric tube remains curled within the stomach. Dilated gas-filled loops of small bowel within the midabdomen have progressed. These measure up to 7 cm in diameter, previously measuring 6. 3 cm. Gas again noted within the nondistended colon. No renal calculi. No ureteral calculi. Calcific ations in the deep pelvis likely represent phleboliths. No pneumoperitoneum or pneumatosis. Cholelith iasis. IMPRESSION: 1. Interval progression of the small bowel distention consistent with a high-grade small bowel obstru ction. 2. Nasogastric tube appears in good position. ACT 112: Negative or not required by law. Electronically signed by: Abrahma Morocho M.D. 09/29/2022 9:48 AM
[2022-09-29] MEDS: PANTOprazole 40 MG in SYRINGE 0 ML IV SCH (10:05)
[2022-09-29] MEDS ORDERED: HYDROmorphone INJ 1 MG/ML SYRINGE IV PRN (10:46)
[2022-09-29] MEDS ORDERED: KETOROLAC 30 MG/ML VIAL IV PRN (10:46)
[2022-09-29] MEDS ORDERED: ONDANSETRON INJ 2 MG/ML 2 ML VIAL IV PRN (10:46)
[2022-09-29] MEDS ORDERED: ATROPINE SULFATE 0.1 MG/ML 10ML SYR IV PRN (10:46)
[2022-09-29] MEDS ORDERED: PROMETHAZINE HCL 6.25 MG in SODIUM CHLORIDE 0.9% 50 ML IV PRN (10:46)
[2022-09-29] MEDS ORDERED: LIDOCAINE 2% MPF LOCAL 5 ML VIAL INFIL ONE (10:50)
[2022-09-29] MEDS ORDERED: ROCURONIUM BROMIDE 10 MG/ML 5 ML VIAL IV ONE ×7 (10:50→13:08)
[2022-09-29] MEDS ORDERED: PHENYLEPHRINE HCL 10 MG/ML VIAL ONE (11:34)
[2022-09-29] MEDS ORDERED: KETAMINE 50 MG/5 ML SYRINGE ONE (11:34)
[2022-09-29] MEDS ORDERED: HYDROmorphone INJ 2 MG/ML SYR/VIAL ONE (11:42)
[2022-09-29] MEDS ORDERED: SUGAMMADEX SODIUM 200 MG/2 ML VIAL IV ONE (13:08)
--- NOTE | 2022-09-29 13:57 | Post Operative Brief Note ---
PG Immediate Post Op with CF Date of Surgery September 29, 2022 Pre & Post Diagnosis Operation Date: 09/29/22 10:40 Pre-Op Diagnosis: Small Bowel Obstruction, Diverticulitis Post-Op Diagnosis: Small Bowel Obstruction, Diverticulitis I identified the patient and participated in the time-out.: Yes Procedure Operation Date: 09/29/22 10:40 Actual Procedures p Exploratory Laparotomy, Release of Small Bowel Obstruction, Sigmoidectomy with End Colostomy, Appendectomy(Not Applicable) - Holden Sue DO Surgeon Holden Sue DO Manufacturing Scheduler Deb Wynn DO Estimated Blood Loss 100 Findings See Below Hinchey 3 diverticulitis Small bowel obstruction with viable small bowel Specimens Specimen Description: Culture set #1 Peritoneal fluid. Aero/Celine Culture & Gram Stain Routine Abdomen. A. Sigmoid Colon B. Appendix Drains Cope Catheter Complications None Disposition Disposition: Recovery Room
--- NOTE | 2022-09-29 14:10 | Operative Report ---
PG Post Operative Report Pre & Post Diagnosis Operation Date: 09/29/22 10:40 Pre-Op Diagnosis: Small Bowel Obstruction, Diverticulitis Post-Op Diagnosis: Small Bowel Obstruction, Diverticulitis I identified the patient and participated in the time-out.: Yes Procedure Operation Date: 09/29/22 10:40 Actual Procedures p Exploratory Laparotomy,Release of Small Bowel Obstruction, Sigmoidectomy with End Colostomy, Appendectomy(Not Applicable) - Holden Sue DO Surgeon Holden Sue DO Mineral Surveying Technician Deb Wynn DO Estimated Blood Loss 100 Findings See Below Hinchey 3 diverticulitis Small bowel obstruction with viable small bowel Specimens Sigmoid colon to pathology Appendix to pathology Peritoneal fluid for culture Drains None Anesthesia Type General Complications none None Disposition Disposition: Recovery Room Indications 67-year-old female with small bowel obstruction and diverticulitis Description of Procedure The patient was brought to the OR and placed in the supine position with both arms abducted. At this time she underwent general endotracheal anesthesia without any problems. She was given appropriate pre-operative antibiotics. Her abdomen was prepped and draped in the usual sterile fashion. Timeout was called. The procedure was verified as Exploratory laparotomy, possible bowel resection, possible ostomy, possible wound vac. Surgical, anesthesia and nursing teams agreed and the procedure was begun. A standard midline incision was made using a #10 blade scalpel. This was carried down to the fascia using electrocautery. The midline fascia was then incised with electrocautery. The peritoneum was then entered bluntly. The incision was then opened up through its entirety. At this point the abdomen was explored and we immediately encountered some murky fluid and this was sent for culture. The small bowel itself was very dilated. The small bowel was eviscerated and then run from the ileocecal valve retrograde to the ligament of Treitz. Deep in the pelvis there was an adhesive band that was causing a mechanical small bowel obstruction. This was lysed using electrocautery. At this point the bowel was free. The bowel itself was edematous and dilated but without any signs of ischemia or necrosis. We then turned our attention to the pelvis. I was able to free up the sigmoid colon using finger fraction and delivered this superiorly into the wound. There was some purulent peritonitis in the pelvis that was suctioned ou t. At this point the colon was inspected and the sigmoid colon itself was severely thickened and inflamed. We then proceeded with a sigmoidectomy and end colostomy creation. The healthy proximal rectum was transected using a KE 60 purple load stapler. We then took the mesentery using the LigaSure device after mobilizing the white line of [place] proximally to healthy descending colon. We then found our proximal transection point of the descending colon that appeared healthy. This was again transected using a KE 60 purple load stapler. The rest the mesentery was then taken using the LigaSure device and the specimen was passed off as sigmoid colon. We then performed an appendectomy using a KE 60 mm sapp load stapler to come across the base. We then took the mesentery using the LigaSure device. At this time the descending colon was mobilized laterally and the mesentery was scored using letter cautery to minimize tension. The colon itself did reach the abdominal wall without tension. The colon was without any signs of ischemia. A spot was chosen in the left midabdomen for the colostomy. Using a Junior the skin was grasped and using a 10 blade scalpel the skin was incised. This was taken down to the fascia using [place] retraction as well as electrocautery. A cruciate incision was made in the fascia and the muscle was split. The incision was able to accept 2 fingers from the operating surgeon. At this point with a [place] the proximal colon was grasped and brought through the incision without issue. We then turned our attention to closing the abdomen. The abdomen itself was irrigated with multiple liters of warm saline. Hemostasis was achieved using electrocautery. Hemostasis was complete. The peritoneum was closed using 0 chromic suture in a running fashion. The fascia was then closed in a running fashion using 2 #1 looped PDS suture starting superiorly and inferiorly and meeting in the middle. Skin was closed with melanie. We then turned our attention to maturing the ostomy. Using Rasmussen scissors the staple line was transected and the colon was opened. Using 3-0 Vicryl suture and using full-thickness bites the ostomy was sutured to the skin in all directions. Prior to this using a 2-0 Vicryl stitch the colon wall was tacked to the fascia of the abdominal wall. Ostomy appliance was applied. Sterile dressing was applied. All needle and sponge counts were correct x 2. At this point the patient was awakened from anesthesia, and transported to PACU in stable condition. Dr. Susan Carlson was present scrubbed the entire case. She assisted in the case due to the complexity. I attest to the content of the Intraoperative Record and any orders documented therein. Any exceptions are noted below.
--- NOTE | 2022-09-29 15:00 | Anesthesiology Progress Note ---
Date of Service September 29, 2022 Anesthesia Post Procedure Vital Signs Vital Signs: Temp Pulse Pulse Pulse Resp BP Pulse Ox 09/29/22 14:50 91 H 12 172/94 H 95 09/29/22 14:40 94 H 20 149/98 H 94 09/29/22 14:30 93 H 13 157/111 H 91 09/29/22 14:20 94 H 12 180/104 H 95 09/29/22 14:10 93 H 12 156/106 H 94 09/29/22 14:00 36.6 C 96 H 16 172/94 H 95 09/29/22 10:04 37.1 C 102 H 18 149/80 H 91 09/29/22 07:15 94 H 09/29/22 08:20 37.7 C H 93 H 18 148/87 H 95 09/29/22 07:37 09/29/22 02:57 95 09/29/22 02:51 37.6 C H 98 H 16 168/78 H 88 L 09/29/22 00:14 80 09/28/22 22:48 37.4 C 99 H 20 155/74 H 90 09/28/22 21:03 09/28/22 19:36 37.5 C 91 H 20 148/78 H 92 09/28/22 16:32 114 H 09/28/22 15:44 38.1 C H 108 H 18 164/87 H 95 O2 Del Method O2 Flow Rate 09/29/22 14:50 Nasal Cannula 2 09/29/22 14:40 Nasal Cannula 2 09/29/22 14:30 Nasal Cannula 2 09/29/22 14:20 Oxymask 5 09/29/22 14:10 Oxymask 5 09/29/22 14:00 Oxymask 5 09/29/22 10:04 Room Air 09/29/22 07:15 09/29/22 08:20 Room Air 09/29/22 07:37 Room Air, Nasal Cannula 09/29/22 02:57 Nasal Cannula 2 09/29/22 02:51 Room Air 09/29/22 00:14 09/28/22 22:48 Room Air 09/28/22 21:03 Room Air 09/28/22 19:36 Room Air 09/28/22 16:32 09/28/22 15:44 Room Air Pain Intensity Lower Abdomen: Pain Intensity: 5 Abdomen: Pain Intensity: 2 Transfer of Care Handoff Completed per policy Notes Mental Status: alert / awake / arousable Patient Amnestic to Procedure: Yes Nausea / Vomiting: adequately controlled Pain: adequately controlled Airway Patency, RR, SpO2: stable & adequate BP & HR: stable & adequate Hydration State: stable & adequate Anesthetic Complications: no major complications apparent
[2022-09-29] MEDS: ENOXAPARIN INJ 40 MG/0.4 ML SYR SQ SCH (15:19)
[2022-09-29] MEDS: ACETAMINOPHEN 1,000 MG/100 ML VIAL IV SCH ×2 (15:37→23:10)
--- NOTE | 2022-09-29 18:21 | Hospitalist Progress Note ---
Date of Service September 29, 2022 Assessment & Plan (1) Small bowel obstruction: Plan: Patient presented with nausea, abdominal pain CT showing small bowel obstruction Patient has a history of total abdominal hysterectomy but this is her first time episode of small bowel obstruction Failed conservative management and thus was taken to the OR 09/29 for release of bowel obstruction Patient is not doing well postsurgery Pain being managed by the surgical team (2) Diverticulitis: Plan: CT abdomen also showed sigmoid diverticulitis Status post sigmoid colectomy 09/29 Continue IV Zosyn for now Blood cultures negative x2 days Continue n.p.o. (3) CAD (coronary artery disease): Plan: Follows with Dr Mitchell, Hx CAD/HTN/HLD/mild ascending aorta dilation stable on echo/severe REJI on CPAP Hx NSTEMI -- 03/2017, thought secondary to small non revascularizable diagonal Multivessel CAD -- s/p PCI with ANGEL to mid LAD; moderate to severe non flow- limiting circumflex Holding olmesartan, metoprolol, atorvastatin unable to tolerate and on rosuvasatin/repatha -- also held while npo but mention she hasn't been taking st atin due to myalgias (myalgia from chronic lyme reported as well) BP stable (4) Hyperlipidemia: Plan: holding PO meds as above (5) REJI (obstructive sleep apnea): Plan: CPAP HS -- may use own machine if able to bring in (6) HTN (hypertension): Plan: hold PO meds lopressor available prn (7) Esophageal reflux: Plan: continue PPI IV daily while NPO (8) Asthma: Plan: continue usual home inhalers, albuterol HFA prn (uses ~1x/week) Admission and Anticipated Discharge Date Admission Date: September 27, 2022 Subjective Patient was taken to the OR. Had Elap, release of small bowel obstruction, sigmoidectomy with end colostomy and appendectomy. She is doing well postsurgery Review of Systems Review of Systems: All systems reviewed & are unremarkable except as noted in Subjective Physical Exam Physical Exam: General: Awake, conversant Heart: S1, S2/regular rate and rhythm, no murmur rubs or gallops Lungs: Clear to auscultation bilaterally. Normal effort Abdomen: Soft/nondistended. No hepatosplenomegaly. Surgical dressing on abdominal wall. Newly-placed colostomy bag noted. Extremities: No clubbing/cyanosis. No edema Behavior: Appropriate, cooperative Results & Data Results & Data Vital Signs (Past 12 Hours) Vital Signs Temp Pulse Pulse Pulse Resp BP Pulse Ox 09/29/22 16:30 36.4 C L 85 18 162/98 H 97 09/29/22 15:46 36.7 C 85 18 166/89 H 95 09/29/22 15:34 36.7 C 86 18 178/99 H 97 09/29/22 15:10 88 19 165/93 H 93 09/29/22 15:00 36.4 C L 91 H 14 159/93 H 96 09/29/22 14:50 91 H 12 172/94 H 95 09/29/22 14:40 94 H 20 149/98 H 94 09/29/22 14:30 93 H 13 157/111 H 91 09/29/22 14:20 94 H 12 180/104 H 95 09/29/22 14:10 93 H 12 156/106 H 94 09/29/22 14:00 36.6 C 96 H 16 172/94 H 95 09/29/22 10:04 37.1 C 102 H 18 149/80 H 91 09/29/22 07:15 94 H 09/29/22 08:20 37.7 C H 93 H 18 148/87 H 95 09/29/22 07:37 O2 Del Method O2 Flow Rate 09/29/22 16:30 Nasal Cannula 2 09/29/22 15:46 Nasal Cannula 2 09/29/22 15:34 Nasal Cannula 2 09/29/22 15:10 Nasal Cannula 2 09/29/22 15:00 Nasal Cannula 2 09/29/22 14:50 Nasal Cannula 2 09/29/22 14:40 Nasal Cannula 2 09/29/22 14:30 Nasal Cannula 2 09/29/22 14:20 Oxymask 5 09/29/22 14:10 Oxymask 5 09/29/22 14:00 Oxymask 5 09/29/22 10:04 Room Air 09/29/22 07:15 09/29/22 08:20 Room Air 09/29/22 07:37 Room Air, Nasal Cannula Laboratory Results Abnormal lab results 09/29/22 09/29/22 Range/Units 07:03 07:03 RBC 3.47 L (4.20-5.40) M/uL Hgb 10.3 L (12.0-16.0) g/dl Hct 31.7 L (37.0-47.0) % Lymph # (Auto) 0.72 L (1.2-3.4) K/uL Glucose 107 H (70-99(Fasting)) mg/dl Calcium 8.3 L (8.5-10.1) mg/dl Total Bilirubin 1.8 H (0.2-1.0) mg/dl AST 11 L (13-39) U/L Total Protein 5.9 L (6.0-8.3) gm/dl Albumin 3.1 L (3.4-5.0) gm/dl Diagnostic Findings KUB X-Ray 09/29/22 08:41 KUB HISTORY: Bowel obstruction. Follow-up. follow obstruction COMPARISON: KUB 09/28/2022. Abdomen and pelvis CT 09/27/2022. FINDINGS: Nasogastric tube remains curled within the stomach. Dilated gas-filled loops of small bowel within the midabdomen have progressed. These measure up to 7 cm in diameter, previously measuring 6.3 cm. Gas again noted within the nondistended colon. No renal calculi. No ureteral calculi. Calcifications in the deep pelvis likely represent phleboliths. No pneumoperitoneum or pneumatosis. Cholelithiasis. IMPRESSION: 1. Interval progression of the small bowel distention consistent with a high- grade small bowel obstruction. 2. Nasogastric tube appears in good position. ACT 112: Negative or not required by law. Electronically signed by: Abraham Morocho M.D. 09/29/2022 9:48 AM PG Care Time/CCT Total # of Minutes Spent Total Time Spent: 35 Total Time Spent with Patient: I spent 35 minutes in the care of this patient. The time was spent in talking to the patient, the center consultant: Surgery team, nurse, care management team, reviewing the chart, formulating plan and placing the orders accordingly. Coding Level of Care Code 83773 SUB INP/OBS CARE 2/35MIN Diagnoses Small bowel obstruction K56.609 Diverticulitis K57.92 CAD (coronary artery disease) I25.10 Associated angina: without angina Coronary Disease-Associated Artery/Lesion type: [place] artery [place] vs. transplanted heart: [place] heart Hyperlipidemia E78.5 Hyperlipidemia type: unspecified REJI (obstructive sleep apnea) G47.33 HTN (hypertension) I10 Hypertension type: unspecified Esophageal reflux K21.9 Esophagitis presence: without esophagitis Asthma J45.909 (3) CAD (coronary artery disease) Associated angina: without angina Coronary Disease-Associated Artery/Lesion type: [place] artery [place] vs. transplanted heart: [place] heart Qualified Code(s): I25.10 - Atherosclerotic heart disease of [place] coronary artery without angina pectoris (4) Hyperlipidemia Hyperlipidemia type: unspecified Qualified Code(s): E78.5 - Hyperlipidemia, unspecified (6) HTN (hypertension) Hypertension type: unspecified Qualified Code(s): I10 - Essential (primary) hypertension (7) Esophageal reflux Esophagitis presence: without esophagitis Qualified Code(s): K21.9 - Gastro- esophageal reflux disease without esophagitis
[2022-09-30] MEDS: PIPERACILLIN/TAZOBACTAM 3.375 GM in DEXTROSE 5% 100 ML IV SCH ×3 (01:20→17:12)
[2022-09-30] MEDS: LACTATED RINGER'S 1,000 ML IV SCH ×4 (04:09→22:51)
[2022-09-30] MEDS: MoRPHine SULFATE 4 MG/ML 1 ML CARP\\VIAL IV PRN (04:10)
--- NOTE | 2022-09-30 05:56 | Electrocardiogram Report ---
Test Reason : Blood Pressure : / mmHG Vent. Rate : 081 BPM Atrial Rate : 081 BPM P-R Int : 140 ms QRS Dur : 082 ms QT Int : 382 ms P-R-T Axes : 063 021 049 degrees QTc Int : 443 ms Normal sinus rhythm Normal ECG When compared with ECG of 23-JUN-2022 11:07, T wave amplitude has decreased in Inferior leads Confirmed by Clifton Borges ([id number]) on 09/30/2022 5:55:50 AM Referred By: REFERRED SELF Confirmed By:Clifton Borges
[2022-09-30] MEDS: ACETAMINOPHEN 1,000 MG/100 ML VIAL IV SCH ×3 (07:17→22:50)
[2022-09-30 07:39] LABS: Eosinophils # (auto) 0.03 K/uL (0-0.50); Eosinophils % (auto) 0.3 %; Hematocrit (blood only) 31.3 % (37.0-47.0); Hemoglobin 10.4 g/dl (12.0-16.0); Immature Granulocytes # (auto) 0.11 K/uL (0.01-0.20); Immature Granulocytes % (auto) 1.3 %; Lymphocytes % (auto) 9.2 %; Mean Corpuscular Hemoglobin 29.6 pg (25.0-34.0); Mean Corpuscular Hgb Conc 33.2 g/dL (32.0-36.0); Mean Corpuscular Volume 89.2 fL (80.0-100.0); Mean Platelet Volume 10.2 fL (9.4-12.4); Monocytes # (auto) 0.59 K/uL (0.11-0.59); Monocytes % (auto) 6.8 %; Neutrophils # (auto) 7.12 K/uL (1.40-6.50); Neutrophils % (auto) 82.4 %; Platelet Count 269 K/uL (130-400); RDW Coefficient of Variation 12.2 % (11.5-14.5); RDW Standard Deviation 39.8 fL (36.4-46.3); Red Blood Count 3.51 M/uL (4.20-5.40); White Blood Count 8.65 K/ul (4.8-10.8)
[2022-09-30 07:56] LABS: BUN Creatinine Ratio 16.7 (10-20); Calcium 8.2 mg/dl (8.5-10.1); Creatinine Clr Calc Pharmacy 140.4 ml/min; Est GFR (African American) 117.6 ml/min; Est GFR (Non-African American) 101.5 ml/min; Potassium 3.6 mmol/L (3.5-5.1)
[2022-09-30] MEDS: FLUTICASONE PROPIONATE NA SPR 16 GM BTL SCH (09:17)
--- NOTE | 2022-09-30 09:59 | Surgery Progress Note ---
Date of Service September 30, 2022 Assessment & Plan (1) Small bowel obstruction: Plan: POD#1 ex lap, release of SBO, and hartmanns wbc 8.6, cr. 0.4, hbg 10.4, k 3.6. vitals stable patient doing as expected post op will add toradol for additional pain control ngt 210 cc documented, leave in for today palmer catheter in place...if pt is a little more mobile can consider d/c palmer later today encouraged pulmonary toilet and OOB as tolerates. IS ordered will resume dvt ppx-lovenox (2) Diverticulitis: Admission and Anticipated Discharge Date Admission Date: September 27, 2022 Supervising Physician Co-Signing Physician Notes I personally saw and evaluated the patient with Ronna Ward PA-C and agree with the assessment and plan. 67-year-old female postoperative day 1 exploratory laparotomy, release of small bowel obstruction, sigmoidectomy with end colostomy, appendectomy She is doing well overall, labs reviewed and stable Remove Palmer Encourage incentive spirometry and ambulation/out of bed to chair We will start Lovenox for DVT prophylaxis We will continue IV antibiotics for 5-day postoperative course Continue NG tube and IV fluids Await ostomy function Subjective Patient is doing okay. Provided reassurance. Has some abdominal pain worse with movement, she is getting relief with the morphine and tylenol. Denies nausea. Physical Exam Physical Exam: awake/alert, no distress Respiratory: normal respiratory effort Gastrointestinal (Abdomen): Inspection/Auscultation: + abdominal surgical incision (dressings c/d/i); abdomen not distended Percussion/Palpation: + abdomen tender (expected [place] incisional discomfort) and abdomen soft + ostomy with scant amount of serous/blood in bag. no gas/BM. NGT draining bilious output Results & Data Vital Signs (Past 12 Hours) Vital Signs Temp Pulse Pulse Resp BP Pulse Ox O2 Del Method 09/30/22 07:20 93 H 09/30/22 07:08 36.6 C 90 16 161/80 H 97 Nasal Cannula 09/30/22 03:21 36.8 C 84 18 179/77 H 97 Nasal Cannula 09/30/22 00:30 83 09/29/22 22:45 36.9 C 93 H 16 163/82 H 97 Nasal Cannula O2 Flow Rate 09/30/22 07:20 03/16/23 07:08 2 09/30/22 03:21 2 09/30/22 00:30 09/29/22 22:45 2 PG Care Time/CCT Total # of Minutes Spent Total Time Spent with Patient: Total time spent is greater than 50% in coordination of care (as documented) at patient's floor/unit and/or counseling patient: Coding Level of Care Code 79038 Post Operative Follow-Up Diagnoses Small bowel obstruction K56.609 Diverticulitis K57.92
[2022-09-30] MEDS: KETOROLAC TROMETHAMINE 15 MG/ML VIAL IV SCH ×3 (10:21→20:41)
[2022-09-30] MEDS: ENOXAPARIN INJ 40 MG/0.4 ML SYR SQ SCH (10:22)
[2022-09-30] MEDS: PANTOprazole 40 MG in SYRINGE 0 ML IV SCH (10:56)
--- NOTE | 2022-09-30 12:04 | Hospitalist Progress Note ---
Date of Service September 30, 2022 Assessment & Plan (1) Small bowel obstruction: Plan: Patient presented with nausea, abdominal pain CT showing small bowel obstruction Patient has a history of total abdominal hysterectomy but this is her first time episode of small bowel obstruction Failed conservative management and thus was taken to the OR 09/29 for release of bowel obstruction Patient is doing well postsurgery Pain being managed by the surgical team Still n.p.o. NG tube in place (2) Diverticulitis: Plan: CT abdomen also showed sigmoid diverticulitis Status post sigmoid colectomy 09/29 Consider discontinuing IV Zosyn soon Blood cultures negative x2 days Continue n.p.o. (3) CAD (coronary artery disease): Plan: Follows with Dr Mitchell, Hx CAD/HTN/HLD/mild ascending aorta dilation stable on echo/severe REJI on CPAP Hx NSTEMI -- 03/2017, thought secondary to small non revascularizable diagonal Multivessel CAD -- s/p PCI with ANGEL to mid LAD; moderate to severe non flow- limiting circumflex Holding olmesartan, metoprolol, atorvastatin unable to tolerate and on rosuvasatin/repatha -- also held while npo but mention she hasn't been taking statin due to myalgias (myalgia from chronic lyme reported as well) BP stable (4) Hyperlipidemia: Plan: holding PO meds as above (5) REJI (obstructive sleep apnea): Plan: CPAP HS -- may use own machine if able to bring in (6) HTN (hypertension): Plan: hold PO meds lopressor available prn (7) Esophageal reflux: Plan: continue PPI IV daily while NPO (8) Asthma: Plan: continue usual home inhalers, albuterol HFA prn (uses ~1x/week) Admission and Anticipated Discharge Date Admission Date: September 27, 2022 Subjective Patient is complaining of postsurgical pain. Heating pad ordered. Surgery team managing pain Review of Systems Review of Systems: All systems reviewed & are unremarkable except as noted in Subjective Physical Exam Physical Exam: General: Awake, conversant Heart: S1, S2/regular rate and rhythm, no murmur rubs or gallops Lungs: Clear to auscultation bilaterally. Normal effort Abdomen: Soft/nondistended. No hepatosplenomegaly. Surgical dressing on abdominal wall. Newly-placed colostomy bag noted. Extremities: No clubbing/cyanosis. No edema Behavior: Appropriate, cooperative Results & Data Results & Data Vital Signs (Past 12 Hours) Vital Signs Temp Pulse Pulse Resp BP Pulse Ox O2 Del Method 09/30/22 11:53 36.8 C 92 H 16 152/79 H 97 Nasal Cannula 09/30/22 09:35 Nasal Cannula, CPAP 09/30/22 07:20 93 H 09/30/22 07:08 36.6 C 90 16 161/80 H 97 Nasal Cannula 09/30/22 03:21 36.8 C 84 18 179/77 H 97 Nasal Cannula 09/30/22 00:30 83 O2 Flow Rate 09/30/22 11:53 2 09/30/22 09:35 09/30/22 07:20 09/30/22 07:08 2 09/30/22 03:21 2 09/30/22 00:30 PG Care Time/CCT Total # of Minutes Spent Total Time Spent: 35 Total Time Spent with Patient: I spent 35 minutes in the care of this patient. The time was spent in talking to the patient, nurse, care management team, reviewing the chart, formulating plan and placing the orders accordingly. Coding Level of Care Code 34752 SUB INP/OBS CARE 2MIN Diagnoses Small bowel obstruction K56.609 Diverticulitis K57.92 CAD (coronary artery disease) I25.10 Associated angina: without angina Coronary Disease-Associated Artery/Lesion type: [place] artery [place] vs. transplanted heart: [place] heart Hyperlipidemia E78.5 Hyperlipidemia type: unspecified REJI (obstructive sleep apnea) G47.33 HTN (hypertension) I10 Hypertension type: unspecified Esophageal reflux K21.9 Esophagitis presence: without esophagitis Asthma J45.909 (3) CAD (coronary artery disease) Associated angina: without angina Coronary Disease-Associated Artery/Lesion type: [place] artery [place] vs. transplanted heart: [place] heart Qualified Code(s): I25.10 - Atherosclerotic heart disease of [place] coronary artery without angina pectoris (4) Hyperlipidemia Hyperlipidemia type: unspecified Qualified Code(s): E78.5 - Hyperlipidemia, unspecified (6) HTN (hypertension) Hypertension type: unspecified Qualified Code(s): I10 - Essential (primary) hypertension (7) Esophageal reflux Esophagitis presence: without esophagitis Qualified Code(s): K21.9 - Gastro- esophageal reflux disease without esophagitis
[2022-10-01] MEDS: PIPERACILLIN/TAZOBACTAM 3.375 GM in DEXTROSE 5% 100 ML IV SCH ×2 (01:16→10:27)
[2022-10-01] MEDS: KETOROLAC TROMETHAMINE 15 MG/ML VIAL IV SCH ×3 (02:12→14:23)
[2022-10-01] MEDS: LACTATED RINGER'S 1,000 ML IV SCH (05:52)
[2022-10-01] MEDS: ONDANSETRON INJ 2 MG/ML 2 ML VIAL IV PRN ×2 (06:32→19:27)
[2022-10-01 08:16] LABS: Basophils # (auto) 0.05 K/uL (0-0.2); Basophils % (auto) 0.5 %; Hematocrit (blood only) 31.4 % (37.0-47.0); Hemoglobin 10.3 g/dl (12.0-16.0); Immature Granulocytes # (auto) 0.35 K/uL (0.01-0.20); Immature Granulocytes % (auto) 3.5 %; Mean Corpuscular Hemoglobin 29.8 pg (25.0-34.0); Mean Corpuscular Hgb Conc 32.8 g/dL (32.0-36.0); Mean Corpuscular Volume 90.8 fL (80.0-100.0); Mean Platelet Volume 9.9 fL (9.4-12.4); Monocytes # (auto) 0.52 K/uL (0.11-0.59); Monocytes % (auto) 5.2 %; Neutrophils % (auto) 70.8 %; Platelet Count 347 K/uL (130-400); RDW Coefficient of Variation 12.5 % (11.5-14.5); RDW Standard Deviation 41.5 fL (36.4-46.3); Red Blood Count 3.46 M/uL (4.20-5.40); White Blood Count 10.02 K/ul (4.8-10.8)
[2022-10-01 08:40] LABS: Calcium 8.3 mg/dl (8.5-10.1); Creatinine Clr Calc Pharmacy 116.6 ml/min; Est GFR (African American) 110.5 ml/min; Est GFR (Non-African American) 95.4 ml/min; Potassium 3.1 mmol/L (3.5-5.1)
[2022-10-01] MEDS: ACETAMINOPHEN 1,000 MG/100 ML VIAL IV SCH ×3 (08:41→23:37)
[2022-10-01] MEDS: FLUTICASONE PROPIONATE NA SPR 16 GM BTL SCH (08:42)
[2022-10-01] MEDS: ENOXAPARIN INJ 40 MG/0.4 ML SYR SQ SCH (08:42)
[2022-10-01] MEDS: PANTOprazole 40 MG in SYRINGE 0 ML IV SCH (10:28)
[2022-10-01] MEDS: D5NSS + 20MEQ KCL 20 MEQ/1,000 ML BAG IV SCH ×2 (10:38→20:12)
--- NOTE | 2022-10-01 11:06 | Surgery Progress Note ---
Date of Service October 01, 2022 Assessment & Plan (1) Small bowel obstruction: Plan: Postoperative day 2 ex lap, release of small bowel obstruction, sigmoidectomy with end colostomy, appendectomy She is progressing well and has been out of bed to the chair Continue to encourage ambulation incentive spirometry We will switch her IV fluids replace her potassium We will await ostomy output and keep NG tube in place still putting out bilious fluid If she does not progress over the weekend to a regular diet, will likely place a PICC line and start TPN Lovenox for DVT prophylaxis (2) Diverticulitis: Admission and Anticipated Discharge Date Admission Date: September 27, 2022 Subjective Patient seen and examined. Abdominal pain controlled. Afebrile. Minimal gas output from the ostomy. No nausea or vomiting. NG tube still with bilious output. Review of Systems Constitutional: no fever and no chills Physical Exam Constitutional: WD/WN, vitals as above Gastrointestinal (Abdomen): Left abdominal ostomy, pink without output Midline incision with melanie, no erythema or drainage Appropriately tender to palpation, no guarding, nonrigid Results & Data Vital Signs (Past 12 Hours) Vital Signs Temp Pulse Pulse Resp BP Pulse Ox O2 Del Method 10/01/22 08:13 90 10/01/22 08:01 36.6 C 96 H 18 158/88 H 92 Room Air 10/01/22 02:09 36.7 C 91 H 20 170/89 H 96 Nasal Cannula O2 Flow Rate 10/01/22 08:13 10/01/22 08:01 10/01/22 02:09 2 PG Care Time/CCT Total # of Minutes Spent Total Time Spent with Patient: Total time spent is greater than 50% in coordination of care (as documented) at patient's floor/unit and/or counseling patient: Coding Level of Care Code 89835 Post Operative Follow-Up Diagnoses Small bowel obstruction K56.609 Diverticulitis K57.92
--- NOTE | 2022-10-01 15:06 | Hospitalist Progress Note ---
Date of Service October 01, 2022 Assessment & Plan (1) Small bowel obstruction: Plan: Patient presented with nausea, abdominal pain CT showing small bowel obstruction Patient has a history of total abdominal hysterectomy but this is her first time episode of small bowel obstruction Failed conservative management and thus was taken to the OR 09/29 for release of bowel obstruction Patient is doing fairly well postsurgery Pain being managed by the surgical team Still n.p.o. NG tube in place Peritoneal culture grew Citrobacter. Spoke to surgery team and pharmacy. We will start cefepime (2) Diverticulitis: Plan: CT abdomen also showed sigmoid diverticulitis Status post sigmoid colectomy 09/29 Discontinue Zosyn Blood cultures negative x2 days (3) CAD (coronary artery disease): Plan: Follows with Dr Mitchell, Hx CAD/HTN/HLD/mild ascending aorta dilation stable on echo/severe RJEI on CPAP Hx NSTEMI -- 03/2017, thought secondary to small non revascularizable diagonal Multivessel CAD -- s/p PCI with ANGEL to mid LAD; moderate to severe non flow- limiting circumflex Holding olmesartan, metoprolol, atorvastatin unable to tolerate and on rosuvasatin/repatha -- also held while npo but mention she hasn't been taking statin due to myalgias (myalgia from chronic lyme reported as well) BP creeping up Start IV enalapril every 6 (4) Hyperlipidemia: Plan: holding PO meds as above (5) REJI (obstructive sleep apnea): Plan: CPAP HS -- may use own machine (6) HTN (hypertension): Plan: hold PO meds lopressor available prn Added IV enalapril every 6 (7) Esophageal reflux: Plan: continue PPI IV daily while NPO (8) Asthma: Plan: continue usual home inhalers, albuterol HFA prn (uses ~1x/week) (9) Hypokalemia due to excessive gastrointestinal loss of potassium: Plan: Repleted by the surgery team Monitor Admission and Anticipated Discharge Date Admission Date: September 27, 2022 Subjective Patient says she feels weak. Still having a lot of drainage out of the NG tube Review of Systems Review of Systems: All systems reviewed & are unremarkable except as noted in Subjective Physical Exam Physical Exam: General: Awake, conversant Heart: S1, S2/regular rate and rhythm, no murmur rubs or gallops Lungs: Clear to auscultation bilaterally. Normal effort Abdomen: Soft/nondistended. No hepatosplenomegaly. Surgical dressing on abdominal wall. Newly-placed colostomy bag noted. Extremities: No clubbing/cyanosis. No edema Behavior: Appropriate, cooperative Results & Data Results & Data Vital Signs (Past 12 Hours) Vital Signs Temp Pulse Pulse Resp BP Pulse Ox O2 Del Method 10/01/22 14:58 36.5 C 93 H 18 168/89 H 96 Room Air 10/01/22 13:07 95 Room Air 10/01/22 11:21 36.9 C 90 20 159/81 H 91 Room Air 10/01/22 08:13 90 10/01/22 08:01 36.6 C 96 H 18 158/88 H 92 Room Air Laboratory Results Abnormal lab results 10/01/22 10/01/22 Range/Units 07:09 07:09 RBC 3.46 L (4.20-5.40) M/uL Hgb 10.3 L (12.0-16.0) g/dl Hct 31.4 L (37.0-47.0) % Neut # (Auto) 7.10 H (1.40-6.50) K/uL Eos # (Auto) 0.70 H (0-0.50) K/uL Immature Gran # (Auto) 0.35 H (0.01-0.20) K/uL Potassium 3.1 L (3.5-5.1) mmol/L Creatinine 0.58 L (0.6-1.2) mg/dl Calcium 8.3 L (8.5-10.1) mg/dl PG Care Time/CCT Total # of Minutes Spent Total Time Spent: 35 Total Time Spent with Patient: I spent 35 minutes in the care of this patient. The time was spent in talking to the patient, nurse, advanced manufacturing consultant: Surgery, pharmacist, care management team, reviewing the chart, formulating plan and placing the orders accordingly. Coding Level of Care Code 86346 SUB INP/OBS CARE 2/35MIN Diagnoses Small bowel obstruction K56.609 Diverticulitis K57.92 CAD (coronary artery disease) I25.10 Coronary Disease-Associated Artery/Lesion type: [place] artery [place] vs. transplanted heart: [place] heart Associated angina: without angina Hyperlipidemia E78.5 Hyperlipidemia type: unspecified REJI (obstructive sleep apnea) G47.33 HTN (hypertension) I10 Hypertension type: unspecified Esophageal reflux K21.9 Esophagitis presence: without esophagitis Asthma J45.909 Hypokalemia due to excessive gastrointestinal loss of potassium E87.6 (3) CAD (coronary artery disease) Coronary Disease-Associated Artery/Lesion type: [place] artery [place] vs. transplanted heart: [place] heart Associated angina: without angina Qualified Code(s): I25.10 - Atherosclerotic heart disease of [place] coronary artery without angina pectoris (4) Hyperlipidemia Hyperlipidemia type: unspecified Qualified Code(s): E78.5 - Hyperlipidemia, unspecified (6) HTN (hypertension) Hypertension type: unspecified Qualified Code(s): I10 - Essential (primary) hypertension (7) Esophageal reflux Esophagitis presence: without esophagitis Qualified Code(s): K21.9 - Gastro- esophageal reflux disease without esophagitis
[2022-10-01] MEDS: POTASSIUM CHLORIDE / WTR 10 MEQ/100 ML PLCT IV SCH ×3 (15:18→19:20)
[2022-10-01] MEDS: ENALAPRILAT 1.25 MG in DEXTROSE 5% 25 ML IV SCH ×2 (16:26→21:30)
[2022-10-01] MEDS: CEFEPIME 2,000 MG in SYRINGE 0 ML IV SCH (17:42)
[2022-10-01] MEDS ORDERED: CEFEPIME 2,000 MG in SYRINGE 0 ML IV SCH (18:00)
[2022-10-01] MEDS ORDERED: diphenhydrAMINE Capsule 25 MG CAP PO ONE (19:58)
[2022-10-01] MEDS ORDERED: diphenhydrAMINE 50 MG/ML VIAL IV STA (20:17)
[2022-10-02] MEDS: CEFEPIME 2,000 MG in SYRINGE 0 ML IV SCH ×3 (01:48→17:52)
[2022-10-02] MEDS: ENALAPRILAT 1.25 MG in DEXTROSE 5% 25 ML IV SCH ×4 (03:16→22:35)
[2022-10-02] MEDS: D5NSS + 20MEQ KCL 20 MEQ/1,000 ML BAG IV SCH ×3 (03:32→20:34)
[2022-10-02] MEDS ORDERED: diphenhydrAMINE Capsule 25 MG CAP PO ONE (03:40)
[2022-10-02] MEDS ORDERED: diphenhydrAMINE 50 MG/ML VIAL IV STA (03:43)
[2022-10-02] MEDS: KETOROLAC TROMETHAMINE 15 MG/ML VIAL IV PRN ×3 (04:04→18:38)
[2022-10-02 07:02] LABS: Hematocrit (blood only) 29.5 % (37.0-47.0); Hemoglobin 9.6 g/dl (12.0-16.0); Mean Corpuscular Hemoglobin 29.3 pg (25.0-34.0); Mean Corpuscular Hgb Conc 32.5 g/dL (32.0-36.0); Mean Corpuscular Volume 89.9 fL (80.0-100.0); Mean Platelet Volume 9.6 fL (9.4-12.4); Platelet Count 355 K/uL (130-400); RDW Coefficient of Variation 12.6 % (11.5-14.5); RDW Standard Deviation 41.7 fL (36.4-46.3); Red Blood Count 3.28 M/uL (4.20-5.40); White Blood Count 9.82 K/ul (4.8-10.8)
[2022-10-02 07:29] LABS: Basophils # (auto) 0.06 K/uL (0-0.2); Basophils % (auto) 0.6 %; Eosinophils # (auto) 0.73 K/uL (0-0.50); Eosinophils % (auto) 7.4 %; Immature Granulocytes # (auto) 0.56 K/uL (0.01-0.20); Immature Granulocytes % (auto) 5.7 %; Lymphocytes # (auto) 1.53 K/uL (1.2-3.4); Lymphocytes % (auto) 15.6 %; Monocytes # (auto) 0.51 K/uL (0.11-0.59); Monocytes % (auto) 5.2 %; Neutrophils # (auto) 6.43 K/uL (1.40-6.50); Neutrophils % (auto) 65.5 %; RBC Morphology Unremarkable
[2022-10-02 07:40] LABS: BUN Creatinine Ratio 13.7 (10-20); Calcium 7.9 mg/dl (8.5-10.1); Creatinine Clr Calc Pharmacy 134.3 ml/min; Est GFR (African American) 115.3 ml/min; Est GFR (Non-African American) 99.5 ml/min; Magnesium 1.7 mg/dl (1.7-2.4); Potassium 3.4 mmol/L (3.5-5.1)
[2022-10-02] MEDS: POTASSIUM CHLORIDE / WTR 10 MEQ/100 ML PLCT IV SCH ×4 (08:55→12:29)
[2022-10-02] MEDS: ACETAMINOPHEN 1,000 MG/100 ML VIAL IV SCH (09:02)
[2022-10-02] MEDS: ENOXAPARIN INJ 40 MG/0.4 ML SYR SQ SCH (09:03)
[2022-10-02] MEDS: FLUTICASONE PROPIONATE NA SPR 16 GM BTL SCH (09:04)
[2022-10-02] MEDS: PANTOprazole 40 MG in SYRINGE 0 ML IV SCH (10:29)
--- NOTE | 2022-10-02 13:33 | Hospitalist Progress Note ---
Date of Service October 02, 2022 Assessment & Plan (1) Small bowel obstruction: Plan: Patient presented with nausea, abdominal pain CT showing small bowel obstruction Patient has a history of total abdominal hysterectomy but this is her first time episode of small bowel obstruction Failed conservative management and thus was taken to the OR 09/29 for release of bowel obstruction Progressing slowly postsurgery Pain being managed by the surgical team Still n.p.o. NG tube in place Peritoneal culture grew Citrobacter. On cefepime Patient says that she is more output through her ostomy today Encouraged mobilization (2) Diverticulitis: Plan: CT abdomen also showed sigmoid diverticulitis Status post sigmoid colectomy 09/29 Discontinue Zosyn Blood cultures negative x2 days (3) CAD (coronary artery disease): Plan: Follows with Dr Mitchell, Hx CAD/HTN/HLD/mild ascending aorta dilation stable on echo/severe REJI on CPAP Hx NSTEMI -- 03/2017, thought secondary to small non revascularizable diagonal Multivessel CAD -- s/p PCI with ANGEL to mid LAD; moderate to severe non flow- limiting circumflex Holding olmesartan, metoprolol, atorvastatin unable to tolerate and on rosuvasatin/repatha -- also held while npo but mention she hasn't been taking statin due to myalgias (myalgia from chronic lyme reported as well) Blood pressure better controlled on IV enalapril every 6 (4) Hyperlipidemia: Plan: holding PO meds as above (5) REJI (obstructive sleep apnea): Plan: CPAP HS -- may use own machine (6) HTN (hypertension): Plan: hold PO meds lopressor available prn Added IV enalapril every 6 (7) Esophageal reflux: Plan: continue PPI IV daily while NPO (8) Asthma: Plan: continue usual home inhalers, albuterol HFA prn (uses ~1x/week) (9) Hypokalemia due to excessive gastrointestinal loss of potassium: Plan: Repleted Monitor Admission and Anticipated Discharge Date Admission Date: September 27, 2022 Subjective Patient feels weak. She is sitting on the bedside chair. She says that there is more stool in the ostomy bag now. Physical Exam Physical Exam: General: Awake, conversant Heart: S1, S2/regular rate and rhythm, no murmur rubs or gallops Lungs: Clear to auscultation bilaterally. Normal effort Abdomen: Soft/nondistended. No hepatosplenomegaly. Surgical dressing on abdominal wall. Newly-placed colostomy bag noted. Extremities: No clubbing/cyanosis. No edema Behavior: Appropriate, cooperative Results & Data Results & Data Vital Signs (Past 12 Hours) Vital Signs Temp Pulse Pulse Resp BP Pulse Ox O2 Del Method 10/02/22 10:57 36.7 C 84 16 149/87 H 96 Room Air 10/02/22 07:44 36.8 C 80 16 160/85 H 97 Nasal Cannula 10/02/22 07:37 79 10/02/22 03:12 36.6 C 91 H 16 167/96 H 91 Room Air O2 Flow Rate 10/02/22 10:57 10/02/22 07:44 2 10/02/22 07:37 10/02/22 03:12 Laboratory Results Abnormal lab results 10/02/22 10/02/22 Range/Units 05:58 05:58 RBC 3.28 L (4.20-5.40) M/uL Hgb 9.6 L (12.0-16.0) g/dl Hct 29.5 L (37.0-47.0) % Eos # (Auto) 0.73 H (0-0.50) K/uL Immature Gran # (Auto) 0.56 H (0.01-0.20) K/uL Potassium 3.4 L (3.5-5.1) mmol/L Chloride 108 H (98-107) mmol/L Creatinine 0.51 L (0.6-1.2) mg/dl Glucose 125 H (70-99(Fasting)) mg/dl Calcium 7.9 L (8.5-10.1) mg/dl PG Care Time/CCT Total # of Minutes Spent Total Time Spent with Patient: Total time spent is greater than 50% in coordination of care (as documented) at patient's floor/unit and/or counseling patient: Coding Level of Care Code 37852 SUB INP/OBS CARE 2MIN Diagnoses Small bowel obstruction K56.609 Diverticulitis K57.92 CAD (coronary artery disease) I25.10 Coronary Disease-Associated Artery/Lesion type: [place] artery [place] vs. transplanted heart: [place] heart Associated angina: without angina Hyperlipidemia E78.5 Hyperlipidemia type: unspecified REJI (obstructive sleep apnea) G47.33 HTN (hypertension) I10 Hypertension type: unspecified Esophageal reflux K21.9 Esophagitis presence: without esophagitis Asthma J45.909 Hypokalemia due to excessive gastrointestinal loss of potassium E87.6 (3) CAD (coronary artery disease) Coronary Disease-Associated Artery/Lesion type: [place] artery [place] vs. transplanted heart: [place] heart Associated angina: without angina Qualified Code(s): I25.10 - Atherosclerotic heart disease of [place] coronary artery without angina pectoris (4) Hyperlipidemia Hyperlipidemia type: unspecified Qualified Code(s): E78.5 - Hyperlipidemia, unspecified (6) HTN (hypertension) Hypertension type: unspecified Qualified Code(s): I10 - Essential (primary) hypertension (7) Esophageal reflux Esophagitis presence: without esophagitis Qualified Code(s): K21.9 - Gastro- esophageal reflux disease without esophagitis
--- NOTE | 2022-10-02 14:53 | Surgery Progress Note ---
Date of Service October 02, 2022 Assessment & Plan (1) Postoperative follow-up: Plan: F/U S/P Exploratory Laparotomy, Small Bowel Resection, Sigmoidectomy with Colostomy, POD 3 doing better, correct low K, NG - 800ml, may pull out NG tube tomorrow, pt dose not want to pull out today, continue treatment, OOB will F/U, Admission and Anticipated Discharge Date Admission Date: September 27, 2022 Supervising Physician Co-Signing Physician Notes I personally saw and evaluated the patient with Ronna Ward PA-C and agree with the assessment and plan. 67-year-old female postoperative day 1 exploratory laparotomy, release of small bowel obstruction, sigmoidectomy with end colostomy, appendectomy She is doing well overall, labs reviewed and stable Remove Cope Encourage incentive spirometry and ambulation/out of bed to chair We will start Lovenox for DVT prophylaxis We will continue IV antibiotics for 5-day postoperative course Continue NG tube and IV fluids Await ostomy function Subjective Patient feels weak. She is sitting on the bedside chair. She says that there is more stool in the ostomy bag now. 10/02/2022 2:51PM, DR. Avilez F/U -S/P, Exploratory Laparotomy, Small Bowel Resection, Sigmoidectomy with Colostomy, POD 3, pt is doing better, no significant abdominal pain, no fever, colostomy working , some stool in bag, NG 800ml Physical Exam Constitutional: WD/WN, vitals as above Neck: trachea midline, no thyromegaly Respiratory: normal respiratory effort, lungs clear to auscultation Cardiovascular: RRR, no murmur, no edema Gastrointestinal (Abdomen): soft, incision intact, no redness, colostomy working, some stool in bag, BS +, Musculoskeletal: no cyanosis or clubbing, extremities motor strength 5/5 Neurologic: patellar DTR's 2+ bilat, sensation intact Psychiatric: A+Ox3, euthymic affect Results & Data Vital Signs (Past 12 Hours) Vital Signs Temp Pulse Pulse Resp BP Pulse Ox O2 Del Method 10/02/22 10:57 36.7 C 84 16 149/87 H 96 Room Air 10/02/22 07:44 36.8 C 80 16 160/85 H 97 Nasal Cannula 10/02/22 07:37 79 10/02/22 03:12 36.6 C 91 H 16 167/96 H 91 Room Air O2 Flow Rate 10/02/22 10:57 10/02/22 07:44 2 10/02/22 07:37 10/02/22 03:12 Laboratory Results Abnormal lab results 10/02/22 10/02/22 Range/Units 05:58 05:58 RBC 3.28 L (4.20-5.40) M/uL Hgb 9.6 L (12.0-16.0) g/dl Hct 29.5 L (37.0-47.0) % Eos # (Auto) 0.73 H (0-0.50) K/uL Immature Gran # (Auto) 0.56 H (0.01-0.20) K/uL Potassium 3.4 L (3.5-5.1) mmol/L Chloride 108 H (98-107) mmol/L Creatinine 0.51 L (0.6-1.2) mg/dl Glucose 125 H (70-99(Fasting)) mg/dl Calcium 7.9 L (8.5-10.1) mg/dl
[2022-10-02] MEDS: ONDANSETRON INJ 2 MG/ML 2 ML VIAL IV PRN (18:38)
[2022-10-02] MEDS: diphenhydrAMINE 50 MG/ML VIAL IV PRN (20:31)
[2022-10-03] MEDS: CEFEPIME 2,000 MG in SYRINGE 0 ML IV SCH ×3 (02:04→18:09)
[2022-10-03] MEDS: ENALAPRILAT 1.25 MG in DEXTROSE 5% 25 ML IV SCH ×4 (03:29→21:26)
[2022-10-03] MEDS: KETOROLAC TROMETHAMINE 15 MG/ML VIAL IV PRN ×3 (03:33→15:06)
[2022-10-03] MEDS: diphenhydrAMINE 50 MG/ML VIAL IV PRN ×2 (03:34→15:06)
[2022-10-03] MEDS: D5NSS + 20MEQ KCL 20 MEQ/1,000 ML BAG IV SCH ×3 (05:11→23:58)
[2022-10-03 06:56] LABS: Hematocrit (blood only) 29.5 % (37.0-47.0); Hemoglobin 9.5 g/dl (12.0-16.0); Mean Corpuscular Hemoglobin 29.7 pg (25.0-34.0); Mean Corpuscular Hgb Conc 32.2 g/dL (32.0-36.0); Mean Corpuscular Volume 92.2 fL (80.0-100.0); Mean Platelet Volume 9.4 fL (9.4-12.4); Platelet Count 374 K/uL (130-400); RDW Coefficient of Variation 12.7 % (11.5-14.5); RDW Standard Deviation 42.9 fL (36.4-46.3); White Blood Count 9.89 K/ul (4.8-10.8)
[2022-10-03 07:20] LABS: Basophils # (auto) 0.03 K/uL (0-0.2); Basophils % (auto) 0.3 %; Eosinophils # (auto) 0.82 K/uL (0-0.50); Eosinophils % (auto) 8.3 %; Immature Granulocytes # (auto) 0.59 K/uL (0.01-0.20); Lymphocytes # (auto) 1.68 K/uL (1.2-3.4); Monocytes # (auto) 0.49 K/uL (0.11-0.59); Neutrophils # (auto) 6.28 K/uL (1.40-6.50); Neutrophils % (auto) 63.4 %; RBC Morphology Unremarkable
[2022-10-03 07:22] LABS: BUN Creatinine Ratio 12.2 (10-20); Calcium 8.1 mg/dl (8.5-10.1); Creatinine Clr Calc Pharmacy 137.6 ml/min; Est GFR (African American) 116.8 ml/min; Est GFR (Non-African American) 100.8 ml/min; Potassium 3.6 mmol/L (3.5-5.1)
[2022-10-03] MEDS: ENOXAPARIN INJ 40 MG/0.4 ML SYR SQ SCH (08:38)
[2022-10-03] MEDS: FLUTICASONE PROPIONATE NA SPR 16 GM BTL SCH (08:39)
[2022-10-03] MEDS: PANTOprazole 40 MG in SYRINGE 0 ML IV SCH (10:08)
--- NOTE | 2022-10-03 12:42 | Hospitalist Progress Note ---
Date of Service October 03, 2022 Assessment & Plan (1) Small bowel obstruction: Plan: Patient presented with nausea, abdominal pain CT showing small bowel obstruction Patient has a history of total abdominal hysterectomy but this is her first time episode of small bowel obstruction Failed conservative management and thus was taken to the OR 09/29 for release of bowel obstruction Progressing slowly postsurgery Pain being managed by the surgical team. Patient is not using IV narcotics anymore. Using Toradol Still n.p.o. NG tube in place. Patient is hopeful that the NG tube can be removed today. Defer decision to the surgical team. Peritoneal culture grew Citrobacter. On cefepime Patient says that she is more output through her ostomy today Encouraged mobilization (2) Diverticulitis: Plan: CT abdomen also showed sigmoid diverticulitis Status post sigmoid colectomy 09/29 Discontinue Zosyn Blood cultures negative x2 days (3) CAD (coronary artery disease): Plan: Follows with Dr Mitchell, Hx CAD/HTN/HLD/mild ascending aorta dilation stable on echo/severe REJI on CPAP Hx NSTEMI -- 03/2017, thought secondary to small non revascularizable diagonal Multivessel CAD -- s/p PCI with ANGEL to mid LAD; moderate to severe non flow- limiting circumflex Holding olmesartan, metoprolol, atorvastatin unable to tolerate and on rosuvasatin/repatha -- also held while npo but mention she hasn't been taking statin due to myalgias (myalgia from chronic lyme reported as well) Blood pressure fairly controlled on IV enalapril every 6. Will resume p.o. meds once able to take p.o. (4) Hyperlipidemia: Plan: holding PO meds as above (5) REJI (obstructive sleep apnea): Plan: CPAP HS -- may use own machine (6) HTN (hypertension): Plan: hold PO meds lopressor available prn Added IV enalapril every 6 (7) Esophageal reflux: Plan: continue PPI IV daily while NPO (8) Asthma: Plan: continue usual home inhalers, albuterol HFA prn (uses ~1x/week) (9) Hypokalemia due to excessive gastrointestinal loss of potassium: Plan: Repleted Monitor Admission and Anticipated Discharge Date Admission Date: September 27, 2022 Subjective Patient feels better today. She just had a sponge bath and is feeling refreshed. She is sitting upright on the bedside chair. She says that she is feeling more energetic today. She is hopeful that the NG tube can be removed so she can walk more. She says that her ostomy bag has more output today. Review of Systems Review of Systems: All systems reviewed & are unremarkable except as noted in Subjective Physical Exam Physical Exam: General: Awake, conversant Heart: S1, S2/regular rate and rhythm, no murmur rubs or gallops Lungs: Clear to auscultation bilaterally. Normal effort Abdomen: Soft/nondistended. No hepatosplenomegaly. Surgical dressing on abdominal wall. Newly-placed colostomy bag noted. Extremities: No clubbing/cyanosis. No edema Behavior: Appropriate, cooperative Results & Data Results & Data Vital Signs (Past 12 Hours) Vital Signs Temp Pulse Pulse Resp BP Pulse Ox O2 Del Method 10/03/22 08:14 74 10/03/22 07:54 36.8 C 82 18 153/88 H 95 Room Air 10/03/22 03:56 36.9 C 80 20 162/98 H 97 Room Air Laboratory Results Abnormal lab results 10/03/22 10/03/22 Range/Units 05:48 05:48 RBC 3.20 L (4.20-5.40) M/uL Hgb 9.5 L (12.0-16.0) g/dl Hct 29.5 L (37.0-47.0) % Eos # (Auto) 0.82 H (0-0.50) K/uL Immature Gran # (Auto) 0.59 H (0.01-0.20) K/uL Chloride 109 H (98-107) mmol/L Creatinine 0.49 L (0.6-1.2) mg/dl Glucose 117 H (70-99(Fasting)) mg/dl Calcium 8.1 L (8.5-10.1) mg/dl PG Care Time/CCT Total # of Minutes Spent Total Time Spent with Patient: Total time spent is greater than 50% in coordination of care (as documented) at patient's floor/unit and/or counseling patient: Coding Level of Care Code 08068 SUB INP/OBS CARE 2/35MIN Diagnoses Small bowel obstruction K56.609 Diverticulitis K57.92 CAD (coronary artery disease) I25.10 Coronary Disease-Associated Artery/Lesion type: [place] artery [place] vs. transplanted heart: [place] heart Associated angina: without angina Hyperlipidemia E78.5 Hyperlipidemia type: unspecified REJI (obstructive sleep apnea) G47.33 HTN (hypertension) I10 Hypertension type: unspecified Esophageal reflux K21.9 Esophagitis presence: without esophagitis Asthma J45.909 Hypokalemia due to excessive gastrointestinal loss of potassium E87.6 (3) CAD (coronary artery disease) Coronary Disease-Associated Artery/Lesion type: [place] artery [place] vs. transplanted heart: [place] heart Associated angina: without angina Qualified Code(s): I25.10 - Atherosclerotic heart disease of [place] coronary artery without angina pectoris (4) Hyperlipidemia Hyperlipidemia type: unspecified Qualified Code(s): E78.5 - Hyperlipidemia, unspecified (6) HTN (hypertension) Hypertension type: unspecified Qualified Code(s): I10 - Essential (primary) hypertension (7) Esophageal reflux Esophagitis presence: without esophagitis Qualified Code(s): K21.9 - Gastro- esophageal reflux disease without esophagitis
--- NOTE | 2022-10-03 13:30 | Surgery Progress Note ---
Date of Service October 03, 2022 Assessment & Plan (1) Postoperative follow-up: Plan: F/U S/P Exploratory Laparotomy, Small Bowel Resection, Sigmoidectomy with Colostomy, POD 3 doing better, correct low K, NG - 800ml, may pull out NG tube tomorrow, pt dose not want to pull out today, continue treatment, OOB will F/U, 10/03/2022 1:32PM F/U S/P Exploratory Laparotomy, Small Bowel Resection, Sigmoidectomy with Colostomy, POD 4 doing better, colostomy working well, pull out Ng Clear diet, will F/U, doing better, Admission and Anticipated Discharge Date Admission Date: September 27, 2022 Supervising Physician Co-Signing Physician Notes I personally saw and evaluated the patient with Ronna Ward PA-C and agree with the assessment and plan. 67-year-old female postoperative day 1 exploratory laparotomy, release of small bowel obstruction, sigmoidectomy with end colostomy, appendectomy She is doing well overall, labs reviewed and stable Remove Cope Encourage incentive spirometry and ambulation/out of bed to chair We will start Lovenox for DVT prophylaxis We will continue IV antibiotics for 5-day postoperative course Continue NG tube and IV fluids Await ostomy function Subjective Patient feels better today. She just had a sponge bath and is feeling refreshed. She is sitting upright on the bedside chair. She says that she is feeling more energetic today. She is hopeful that the NG tube can be removed so she can walk more. She says that her ostomy bag has more output today. 10/03/2022 1:[address] Avilez doing better, no significant abdominal pain, no fever, colostomy working well, stool in bag, NG 800ml Physical Exam Constitutional: WD/WN, vitals as above Neck: trachea midline, no thyromegaly Respiratory: normal respiratory effort, lungs clear to auscultation Cardiovascular: RRR, no murmur, no edema Gastrointestinal (Abdomen): soft, NT, ND, colostomy working well, incision intact, no redness, Musculoskeletal: no cyanosis or clubbing, extremities motor strength 5/5 Neurologic: patellar DTR's 2+ bilat, sensation intact Psychiatric: A+Ox3, euthymic affect Results & Data Vital Signs (Past 12 Hours) Vital Signs Temp Pulse Pulse Resp BP Pulse Ox O2 Del Method 10/03/22 08:14 74 10/03/22 07:54 36.8 C 82 18 153/88 H 95 Room Air 10/03/22 03:56 36.9 C 80 20 162/98 H 97 Room Air Laboratory Results Abnormal lab results 10/03/22 10/03/22 Range/Units 05:48 05:48 RBC 3.20 L (4.20-5.40) M/uL Hgb 9.5 L (12.0-16.0) g/dl Hct 29.5 L (37.0-47.0) % Eos # (Auto) 0.82 H (0-0.50) K/uL Immature Gran # (Auto) 0.59 H (0.01-0.20) K/uL Chloride 109 H (98-107) mmol/L Creatinine 0.49 L (0.6-1.2) mg/dl Glucose 117 H (70-99(Fasting)) mg/dl Calcium 8.1 L (8.5-10.1) mg/dl
[2022-10-03] MEDS: METOPROLOL TARTRATE 25 MG TAB PO SCH (19:53)
[2022-10-04] MEDS: CEFEPIME 2,000 MG in SYRINGE 0 ML IV SCH ×3 (02:09→18:25)
[2022-10-04] MEDS: ENALAPRILAT 1.25 MG in DEXTROSE 5% 25 ML IV SCH ×2 (03:34→09:37)
[2022-10-04] MEDS: METOPROLOL TARTRATE 25 MG TAB PO SCH ×2 (09:35→20:03)
[2022-10-04] MEDS: ENOXAPARIN INJ 40 MG/0.4 ML SYR SQ SCH (09:35)
[2022-10-04] MEDS: FLUTICASONE PROPIONATE NA SPR 16 GM BTL SCH (09:36)
[2022-10-04] MEDS ORDERED: oxyCODONE HCL IR 5 MG TAB (IMMEDIATE RELEASE) PO PRN (10:44)
[2022-10-04] MEDS: ACETAMINOPHEN 325 MG TAB PO PRN ×2 (10:45→18:25)
[2022-10-04] MEDS: PANTOprazole 40 MG in SYRINGE 0 ML IV SCH (10:46)
--- NOTE | 2022-10-04 10:48 | Surgery Progress Note ---
Date of Service October 04, 2022 Assessment & Plan (1) Small bowel obstruction: Plan: s/pExploratory Laparotomy, release of SBO, Sigmoidectomy with Colostomy pt is doing very well ostomy is functioning. tolerating clear liquids, will continue to advance diet as tolerates. D/c IVF continue iv abx-today cefepime po pain control ordered possible discharge to home tomorrow if continues to do well pending medical clearance (2) Diverticulitis: Admission and Anticipated Discharge Date Admission Date: September 27, 2022 Supervising Physician Co-Signing Physician Notes I personally saw and evaluated the patient with Ronna Ward PA-C and agree with the assessment and plan. 67-year-old female postoperative day 5 exploratory laparotomy, release of small bowel obstruction, sigmoidectomy with end colostomy, appendectomy She is tolerating clear liquids, advance to full's for dinner Encourage ambulation spirometry Continue IV antibiotics for 1 more day Her colostomy is functioning well Anticipate advancing her diet tomorrow and possible discharge Subjective Patient is feeling well this AM. Tolerating clears, hungry for more. Having + bowel function via ostomy. No nausea. Mild pain present that is manageable on prn Tylenol and Toradol. Physical Exam Physical Exam: awake/alert, no distress Respiratory: normal respiratory effort Gastrointestinal (Abdomen): Inspection/Auscultation: + abdominal surgical incision (c/d/i midline melanie with mild skin reaction. no signs of infection); abdomen not distended Percussion/Palpation: abdomen soft; abdomen nontender + ostomy viable with liquid stool in bag Results & Data Vital Signs (Past 12 Hours) Vital Signs Temp Pulse Pulse Resp BP Pulse Ox O2 Del Method 10/04/22 08:03 81 10/04/22 07:26 36.9 C 85 18 165/86 H 96 Room Air 10/04/22 04:20 36.7 C 83 20 178/103 H 96 BiPAP 10/03/22 23:00 74 10/03/22 23:41 36.7 C 75 20 159/84 H 96 BiPAP PG Care Time/CCT Total # of Minutes Spent Total Time Spent with Patient: Total time spent is greater than 50% in coordination of care (as documented) at patient's floor/unit and/or counseling patient: Coding Level of Care Code 19189 Post Operative Follow-Up Diagnoses Small bowel obstruction K56.609 Diverticulitis K57.92
--- NOTE | 2022-10-04 12:17 | Hospitalist Progress Note ---
Date of Service October 04, 2022 Assessment & Plan (1) Small bowel obstruction: Plan: Patient presented with nausea, abdominal pain CT showing small bowel obstruction Patient has a history of total abdominal hysterectomy but this is her first time episode of small bowel obstruction Failed conservative management and thus was taken to the OR 09/29 for release of bowel obstruction Progressing slowly postsurgery Pain being managed by the surgical team. Patient is not using IV narcotics anymore. Using Toradol NG tube was removed yesterday. Patient was started on clear liquid diet. She is tolerating her diet well. Peritoneal culture grew Citrobacter. On cefepime Encouraged mobilization (2) Diverticulitis: Plan: CT abdomen also showed sigmoid diverticulitis Status post sigmoid colectomy 09/29 Discontinued Zosyn Blood cultures negative x2 days (3) CAD (coronary artery disease): Plan: Follows with Dr Mitchell, Hx CAD/HTN/HLD/mild ascending aorta dilation stable on echo/severe REJI on CPAP Hx NSTEMI -- 03/2017, thought secondary to small non revascularizable diagonal Multivessel CAD -- s/p PCI with ANGEL to mid LAD; moderate to severe non flow- limiting circumflex Resume olmesartan now that taking p.o. On metoprolol. Discontinue IV enalapril (4) Hyperlipidemia: Plan: Resume statin at the time of discharge (5) REJI (obstructive sleep apnea): Plan: CPAP HS -- may use own machine (6) HTN (hypertension): Plan: Back on metoprolol Resume olmesartan Discontinue IV fluids now that tolerating diet. Blood pressure elevated. We will make the above adjustments and monitor closely. (7) Esophageal reflux: Plan: continue PPI IV daily while NPO (8) Asthma: Plan: continue usual home inhalers, albuterol HFA prn (uses ~1x/week) (9) Hypokalemia due to excessive gastrointestinal loss of potassium: Plan: Repleted Monitor Admission and Anticipated Discharge Date Admission Date: September 27, 2022 Subjective Patient has her NG tube out! She is tolerating clear liquid diet. Passing gas. Ostomy bag is getting full. Review of Systems Review of Systems: All systems reviewed & are unremarkable except as noted in Subjective Physical Exam Physical Exam: General: Awake, conversant Heart: S1, S2/regular rate and rhythm, no murmur rubs or gallops Lungs: Clear to auscultation bilaterally. Normal effort Abdomen: Soft/nondistended. No hepatosplenomegaly. Well-healing surgical scar on abdominal wall. Newly-placed colostomy bag noted. Extremities: No clubbing/cyanosis. No edema Behavior: Appropriate, cooperative Results & Data Results & Data Vital Signs (Past 12 Hours) Vital Signs Temp Pulse Pulse Resp BP BP Pulse Ox 10/04/22 11:01 36.8 C 75 18 160/84 H 98 10/04/22 08:03 81 10/04/22 07:26 36.9 C 85 18 165/86 H 96 10/04/22 04:20 36.7 C 83 20 178/103 H 96 O2 Del Method 10/04/22 11:01 Room Air 10/04/22 08:03 10/04/22 07:26 Room Air 10/04/22 04:20 BiPAP PG Care Time/CCT Total # of Minutes Spent Total Time Spent with Patient: Total time spent is greater than 50% in coordination of care (as documented) at patient's floor/unit and/or counseling patient: Coding Level of Care Code 89791 SUB INP/OBS CARE 2/35MIN Diagnoses Small bowel obstruction K56.609 Diverticulitis K57.92 CAD (coronary artery disease) I25.10 Coronary Disease-Associated Artery/Lesion type: [place] artery [place] vs. transplanted heart: [place] heart Associated angina: without angina Hyperlipidemia E78.5 Hyperlipidemia type: unspecified REJI (obstructive sleep apnea) G47.33 HTN (hypertension) I10 Hypertension type: unspecified Esophageal reflux K21.9 Esophagitis presence: without esophagitis Asthma J45.909 Hypokalemia due to excessive gastrointestinal loss of potassium E87.6 (3) CAD (coronary artery disease) Coronary Disease-Associated Artery/Lesion type: [place] artery [place] vs. transplanted heart: [place] heart Associated angina: without angina Qualified Code(s): I25.10 - Atherosclerotic heart disease of [place] coronary artery without angina pectoris (4) Hyperlipidemia Hyperlipidemia type: unspecified Qualified Code(s): E78.5 - Hyperlipidemia, unspecified (6) HTN (hypertension) Hypertension type: unspecified Qualified Code(s): I10 - Essential (primary) hypertension (7) Esophageal reflux Esophagitis presence: without esophagitis Qualified Code(s): K21.9 - Gastro- esophageal reflux disease without esophagitis
[2022-10-04] MEDS: LOSARTAN POTASSIUM 50 MG TAB PO SCH (12:37)
[2022-10-04] MEDS: D5NSS + 20MEQ KCL 20 MEQ/1,000 ML BAG IV SCH (19:14)
[2022-10-04] MEDS: diphenhydrAMINE 50 MG/ML VIAL IV PRN (20:03)
[2022-10-05] MEDS: CEFEPIME 2,000 MG in SYRINGE 0 ML IV SCH ×2 (02:32→09:59)
[2022-10-05] MEDS: ACETAMINOPHEN 325 MG TAB PO PRN ×2 (02:42→10:01)
[2022-10-05] MEDS: diphenhydrAMINE 50 MG/ML VIAL IV PRN (02:42)
[2022-10-05] MEDS ORDERED: PANTOprazole 40 MG TAB PO SCH (09:00)
[2022-10-05] MEDS ORDERED: METOPROLOL TARTRATE 50 MG TAB PO SCH (09:00)
[2022-10-05] MEDS: LOSARTAN POTASSIUM 50 MG TAB PO SCH (09:58)
[2022-10-05] MEDS: ENOXAPARIN INJ 40 MG/0.4 ML SYR SQ SCH (10:00)
[2022-10-05] MEDS: FLUTICASONE PROPIONATE NA SPR 16 GM BTL SCH (10:00)
--- NOTE | 2022-10-05 13:30 | Discharge Summary ---
Date of Service October 05, 2022 Admission HPI Per Admitting Provider 67yo female with PMHx significant for CAD, HTN, HLD, Asthma, REJI, Lyme presented with abdominal pain and thought she had food poisoning however with same meal and no issues. CTAP with evidence for SBO and diverticulitis with possible fistula tracts. Hx hysterectomy/tubal ligation, kidney stones but did not need any open procedures. Patient seen in B10 with at present. Pain was 8/10 this morning and currently 3/10 with medications. Pain primarily along her right side, upper/lower however had been having generalized abdominal pain/spasm prior to admission which has resolved. NEVER had pain like this or prior episodes of diverticulitis. Had some nausea but improved since medication. NO vomiting. Had been having several salads and chicken tenders over the weekend. She had BM this morning liquid, but has been having mixed bowel/urine when going so she doesn't know color of urine. BM this morning liquid yellow/bile in color. No vomiting at present. She notes symptoms started on Tuesday evening and she had a temperature of 105F at home yesterday. Never had history of diverticulitis, reports she had a c-scope in [facility] about 2 years ago but does not remember their name. Denies any abn findings at that time. No family history of IBD/crohns/colitis. Discussed will consult [facility] GI if needed inpatient but will require outpt follow up regardless. No chest pain/shortness of breath. Hx asthma but uses albuterol HFA only about once a week. can bring in her CPAP. Discussed with and seen by general surgery this morning -- no need for NGT at this time but recommends continued IV antibiotics, NPO/supportive care and continued monitoring for now. Patient already received dose of IV Zosyn and 1L NSS bolus with tylenol/zofran and famotidine push. WBC elevated to 13.9k, procal pending. Chemistries with Na 135, K 3.6. BUN/Cr 15/0.93, Glu 152. TB 2.7 with normal AST/ALT/ALP Discussed admitting for ongoing IV abx and monitoring and hopefully will be able to have conservative treatment. She inquired about oral contrast for any further imaging as she did have anaphylactic reaction in the past with contrast for her kidney stone. No PO intake discussed at this time/bowel rest discussed. Questions/concerns addressed at this time. Admission Exam Per Admitting Provider General: WD female sitting up in bed, at bedside, NAD but mildly uncomfortable with position changes HEENT: head normocephalic, atraumatic, mm slightly dry, thick neck, no JVD, no NGT present Resp: CTA, no w/c, on room air CV: RRR, no significant m/r/g, no pitting edema GI: +BS hyperactive LLQ, decreased BS RUQ/RLQ, moderate-sig tenderness to palpation RLQ, mild-mod tenderness palpation RUQ, voluntary guarding but no rigidity/peritoneal signs GI: no palmer MSK/Neuro: moves all extremities, no focal deficits R knee prior surgical scar well healed, no evidence for infection Psych: alert/oriented, pleasant and cooperative Skin: cool, dry Principal Diagnosis Bowel obstruction status post small bowel resection, sigmoidectomy with c olostomy. Sigmoid diverticulitis status post sigmoidectomy Discharge Exam General: Awake, conversant Heart: S1, S2/regular rate and rhythm, no murmur rubs or gallops Lungs: Clear to auscultation bilaterally. Normal effort Abdomen: Soft/nondistended. No hepatosplenomegaly. Well-healing surgical scar on abdominal wall. Newly-placed colostomy bag noted. Extremities: No clubbing/cyanosis. No edema Behavior: Appropriate, cooperative Discharge Data Allergies Allergy/AdvReac Type Severity Reaction Status Date / Time Iodinated Contrast Media Allergy Severe Anaphylaxis Verified 06/09/22 14:41 pine nut Allergy Intermediate Mouth Verified 06/09/22 14:41 itching walnut Allergy Intermediate Mouth Verified 06/09/22 14:41 itching avocado Allergy Verified 09/28/22 11:34 banana Allergy Verified 09/28/22 11:34 cantaloupe Allergy Verified 09/28/22 11:34 kiwi Allergy Verified 09/28/22 11:34 pineapple Allergy Verified 09/28/22 11:34 tamsulosin [From Flomax] AdvReac Verified 06/09/22 14:41 Consultations 09/27/22 12:11 ED Decision to Admit Stat 09/27/22 12:27 Consult General Surgery Routine Procedures Performed Operation Date: 09/29/22 10:40 Actual Procedures p Exploratory Laparotomy, Small Bowel Resection, Sigmoidectomy with Colostomy, (Not Applicable) - Holden A. Vikram, DO s Appendectomy(Not Applicable) - Holden Sue DO Ordered Studies 09/27/22 09:52 CT abd pelvis wo con Stat Hospital Course (1) Small bowel obstruction: Patient presented with nausea, abdominal pain CT showing small bowel obstruction Patient has a history of total abdominal hysterectomy but this is her first time episode of small bowel obstruction Failed conservative management and thus was taken to the OR 09/29 for release of bowel obstruction Progressing slowly postsurgery Pain being managed by the surgical team. Patient is not using IV narcotics anymore. Using Toradol NG tube was removed. Patient was started on clear liquid diet. Tolerated solid diet today. Peritoneal culture grew Citrobacter. Completed antibiotic course. Encouraged mobilization (2) Diverticulitis: CT abdomen also showed sigmoid diverticulitis Status post sigmoid colectomy 09/29 Discontinued Zosyn Blood cultures negative x2 days (3) CAD (coronary artery disease): Follows with Dr Mitchell, Hx CAD/HTN/HLD/mild ascending aorta dilation stable on echo/severe REJI on CPAP Hx NSTEMI -- 03/2017, thought secondary to small non revascularizable diagonal Multivessel CAD -- s/p PCI with ANGEL to mid LAD; moderate to severe non flow- limiting circumflex Resume olmesartan and metoprolol (4) Hyperlipidemia: Resume statin at the time of discharge (5) REJI (obstructive sleep apnea): CPAP HS -- may use own machine (6) HTN (hypertension): Back on metoprolol. Blood pressure still high. Increased the metoprolol to 50 mg twice daily. Asked the patient to double up on her dose of 25 mg twice daily until seen by PCP Back on Olmesartan (7) Esophageal reflux: continue PPI IV daily while NPO (8) Asthma: continue usual home inhalers, albuterol HFA prn (uses ~1x/week) (9) Hypokalemia due to excessive gastrointestinal loss of potassium: Repleted Monitor Total Time Total Time Spent Total Time Spent (In Minutes): 35 Discharge Plan Discharge Items Patient Disposition: Home - Home Health Services Reason For Visit: SBO, DIVERTICULITIS Discharge Diagnosis: small bowel obstruction diverticulitis Activity: Per Instructions section Lifting: No more than 10 pounds Bathing Comment: may shower; no soaking in tubs/pools Exercise/Sports: Wait until after follow-up appointment Driving/Machine Use: no driving while taking narcotics for pain Non-emergency contact: Primary Care Provider and Surgeon Call non-emergency contact if: you have any medication questions, your symptoms worsen, your pain is not controlled, your pain is unusual for you, you have a fever, your temperature is above 101.5, your wound has increased redness, your wound has increased drainage and your wound pain has increased Follow-up/Referrals: Nasir Araiza MD [Primary Care Provider] - 10/20/22 1:30 pm Holden Sue, [Physician] - (please call to schedule follow up in clinic within 1 week) Diet: Heart Healthy and Low Fiber Addtl Attending Provider Instructions: please care for your ostomy as instructed prior to discharge from the hospital use 2 3/4" wafter and pouch and 2" ring to surround stoma. do not use skin prep. wash with plain water and dry well. apply ring to surround stoma (place right up to edge). cut wafer opening no larger than 1/8" bigger than the stoma. do not place pouch sideways. change weekly and as needed you have surgical melanie in place that will be removed at one of your follow up appointments Advised to follow-up with PCP in 1 week Pending Studies at Discharge: Yes Studies:: surgical pathology Stand-Alone Forms: My [facility] Medications and DC Order Prescriptions: New metoprolol tartrate 50 mg Tablet 50 mg PO BID Qty: 30 0RF Continued aspirin 81 mg tablet,delayed release (DR/EC) 81 mg PO QAM QNASL 80 mcg/actuation HFA aerosol inhaler 2 inh intranasal DAILY Qty: 10.6 11RF Rx Instructions: administer into each nostril omeprazole 20 mg capsule,delayed release(DR/EC) 20 mg PO PM Qty: 90 3RF albuterol sulfate [Ventolin HFA] 90 mcg/actuation HFA aerosol inhaler 2 puff INH Q4H PRN (Reason: Shortness Of Breath) Qty: 1 11RF fluconazole [Diflucan] 150 mg tablet 150 mg PO .COMPLEX Qty: 1 0RF Rx Instructions: 150 mg orally daily x1 dose.; nitrofurantoin macrocrystal 100 mg capsule 100 mg PO .COMPLEX Qty: 10 0RF Rx Instructions: 100 mg orally twice dailyx5 days.; must administer with a meal/food nitroglycerin 0.4 mg tablet, sublingual 0.4 mg SL Q5M PRN (Reason: Chest Pain) Qty: 30 1RF cinnamon bark [Cinnamon] 500 mg capsule 500 mg PO QAM cholecalciferol (vitamin D3) 1,000 unit (25 mcg) tablet 1,000 units PO QAM nitrofurantoin macrocrystal 100 mg capsule 100 mg PO BID Qty: 20 0RF Rx Instructions: must administer with a meal/food olmesartan 40 mg tablet 40 mg PO DAILY Qty: 90 3RF ezetimibe 10 mg tablet 10 mg PO DAILY Qty: 90 3RF Asmanex Twisthaler 220 mcg/ actuation (60) aerosol powdr breath activated 1 inh INH BID PRN (Reason: wheezing) Qty: 1 11RF estradiol [Estrace] 0.01 % (0.1 mg/gram) cream 1 g vaginal 2XWK Qty: 42.5 11RF Rx Instructions: apply pea size amount to vaginal opening two times per week vitamin B complex Tablet 1 tab PO PM coQ10 (ubiquinol) 200 mg Capsule 200 mg PO PM Probiotic 3 billion cell Capsule 3,000 mmu cells PO PM Discontinued metoprolol tartrate 25 mg tablet 25 mg PO BID Qty: 180 3RF Discharge Orders: Discharge Order (Routine); Ordered 10/05/22 Ordered By: Sukumar Epps Admission Data Admit Date/Time: 09/27/22 12:52 Attending Provider: Sukumar Epps Admit Provider: Ed Metz Primary Care Provider: Nasir Araiza Other Providers: Ed Metz ; River Fleming Coding Level of Care Code 01253 INP/OBS DISCH >30 MIN Diagnoses Small bowel obstruction K56.609 Diverticulitis K57.92 CAD (coronary artery disease) I25.10 Associated angina: without angina Coronary Disease-Associated Artery/Lesion type: [place] artery [place] vs. transplanted heart: [place] heart Hyperlipidemia E78.5 Hyperlipidemia type: unspecified REJI (obstructive sleep apnea) G47.33 HTN (hypertension) I10 Hypertension type: unspecified Esophageal reflux K21.9 Esophagitis presence: without esophagitis Asthma J45.909 Hypokalemia due to excessive gastrointestinal loss of potassium E87.6
--- NOTE | 2022-10-05 14:17 | Surgery Progress Note ---
Date of Service October 05, 2022 Assessment & Plan (1) Small bowel obstruction: Plan: Patient is tolerating a low fiber diet Has ostomy function and feels comfortable changing her ostomy bag She is stable for discharge from a surgical standpoint We will arrange follow-up in 1 week for staple removal No lifting, pushing or pulling more than 10 pounds for another week (2) Diverticulitis: Admission and Anticipated Discharge Date Admission Date: September 27, 2022 Subjective Patient seen and examined. Minimal abdominal pain. Tolerating low fiber diet. Positive ostomy function. No nausea or vomiting. Physical Exam Constitutional: WD/WN, vitals as above Gastrointestinal (Abdomen): Abdomen soft, minimally tender Incision with melanie, no drainage or erythema Ostomy left lower quadrant pink with output Results & Data Vital Signs (Past 12 Hours) Vital Signs Temp Pulse Pulse Resp BP BP Pulse Ox 10/05/22 11:12 37.0 C 85 18 144/82 H 95 10/05/22 07:38 74 10/05/22 07:17 36.7 C 76 20 165/81 H 95 10/05/22 04:00 36.9 C 74 20 147/82 H 97 O2 Del Method 10/05/22 11:12 Room Air 10/05/22 07:38 10/05/22 07:17 Room Air 10/05/22 04:00 Room Air PG Care Time/CCT Total # of Minutes Spent Total Time Spent with Patient: Total time spent is greater than 50% in coordination of care (as documented) at patient's floor/unit and/or counseling patient: Coding Level of Care Code None Diagnoses Small bowel obstruction K56.609 Diverticulitis K57.92
== END 2022-10-05 15:40 | disposition home health service (06) | DRG 329 ==
LOC: ED 09:26 → SUATTDRO 12:52 → 2N 12:52 → 2W 10-05 09:40